=== PATIENT | female | born 1980 | race Caucasian/White ===

== ENCOUNTER 2020-06-04 08:41 | Outpatient (REF) | payer OTHER, SELFPAY ==
[2020-06-04 09:43] LABS: MANUAL DIFF FLAG NO
[2020-06-04 09:44] LABS: Basophils Absolute Auto 0.1 X10*3/uL (0.0-0.2); Basophils Percent Auto 0.4 % (0-2); Eosinophils Absolute Auto 0.2 X10*3/uL (0.0-0.4); Eosinophils Percent Auto 1.8 % (0-4); Hematocrit 34.3 % (37-47); Hemoglobin 10.3 g/dl (12.0-16.0); Imm Gran Abs Auto 0.06 X10*3/uL (0.00-0.03); Imm Gran Pct Auto 0.5 % (0.0-0.4); Lymphocytes Absolute Auto 2.2 X10*3/uL (1.2-4.9); Lymphocytes Percent Auto 17.4 % (20-40); Mean Corpuscular Hemoglobin 24.6 pg (27.0-33.0); Mean Corpuscular Volume 82.1 fL (80-98); Mean Platelet Volume 9.5 fL (9.4-12.3); Monocytes Absolute Auto 0.8 X10*3/uL (0.1-1.2); Monocytes Percent Auto 6.2 % (2-11); Neutrophils Absolute Auto 9.5 X10*3/uL (2.0-8.3); Neutrophils Percent Auto 73.7 % (45-73); Platelet Count 331 X10*3/uL (160-400); Red Blood Count 4.18 X10*6/uL (4.20-5.50); Red Cell Distribution Width 17.3 % (11.0-16.0); White Blood Count 12.8 X10*3/uL (4.8-10.8)
[2020-06-04 10:26] LABS: Alanine Aminotransferase 16 U/L (0-31); Albumin Level 3.8 g/dL (3.5-5.0); Alkaline Phosphatase 120 U/L (39-117); Anion Gap 10 (12-20); Aspartate Amino Transferase 18 U/L (5-31); Bilirubin Total < 0.2 mg/dL (0.0-1.0); Blood Urea Nitrogen 11 mg/dL (9-16); Carbon Dioxide 29 mmol/L (22-29); Chloride 102 mmol/L (96-108); Cholesterol 138 mg/dL; Estimated Glomerular Filt Rate > 60; Glucose Fasting 133 mg/dL (60-99); HDL Cholesterol 41 mg/dL; LDL Cholesterol Calculated 74 mg/dl; Potassium 4.2 mmol/l (3.3-5.1); Sodium 137 mmol/L (135-145); Total Protein 6.8 g/dL (6.5-8.0); Triglycerides 115 mg/dL
[2020-06-04 14:19] LABS: CT PCR NOT DETECTED (Not Detect.); NG PCR NOT DETECTED (Not Detect.)
[2020-06-06 08:39] LABS: HBS Num1 1.32 mIU/mL (0-7.99); HBc Num1 0.06 S/CO (0.00-0.79); HBsAGNum1 0.15 S/CO (0.00-0.99); HIV AB/AG Nonreactive (Nonreactive); HIV Num 1 0.14 S/CO (0.00-0.99); Hepatitis B Core Antibody Nonreactive (Nonreactive); Hepatitis B Surface Antigen Negative (Negative); ~Hepatitis B Surface Antibody NONREACTIVE (Nonreactive); ~Hepatitis C Antibody Nonreactive (Nonreactive)
[2020-06-06 08:54] LABS: Syphilis Screen Nonreactive (Nonreactive)
[2020-06-09 08:51] LABS: Hepatitis A Antibody IgM 0.11 Index (0-0.79); ~Hepatitis A Antibody IgM Nonreactive (Nonreactive)
== END 2020-06-04 08:42 | disposition home or self-care (01) ==
LOC: HO.LAB 08:41
PROVIDERS: PCP Internal Medicine; Visit Provider Internal Medicine
DX: Z72.51 High risk heterosexual behavior (principal); Z11.3 Encounter for screening for infections with a predominantly sexual mode of transmission; Z11.4 Encounter for screening for human immunodeficiency virus [HIV]; Z01.84 Encounter for antibody response examination
CPT/HCPCS: 36415; 80053; 80061; 85025; 86704; 86706; 86709; 86780; 86803; 87340; 87389; 87491; 87591

== ENCOUNTER 2020-06-15 14:51 | Outpatient (REF) | payer OTHER, SELFPAY ==
--- NOTE | 2020-06-15 14:56 | MM_ITS ---
EXAMINATION: MM SCREENING DIGITAL BREAST TOMOSYNTHESIS, BILATERAL CLINICAL INFORMATION: Screening. Asymptomatic. The lifetime risk of breast cancer based on the Tyrer-Cuzick Model is 10%. COMPARISON: Mammography: 08/25/2015 TECHNIQUE: Digital breast tomosynthesis is performed in both the craniocaudal and mediolateral oblique views along with computer-aided detection (CAD). Synthesized 2D images are generated from the tomosynthesis. FINDINGS: There are scattered areas of fibroglandular density (ACR BI-RADS breast composition Category b). There are no significant masses, abnormal calcifications, or other abnormalities. There are multiple punctate predominantly dermal calcifications bilateral posterior central and medial breasts. No significant change. MM/MM tomosynthesis screening BI IMPRESSION: No significant changes from prior study. ASSESSMENT: BI-RADS 2: Benign RECOMMENDATION: Routine annual mammography screening. This patient's information was entered into a reminder system with a target due date for their next mammogram.
== END 2020-06-15 14:52 | disposition home or self-care (01) ==
LOC: HO.MAMMO 14:51
PROVIDERS: PCP Internal Medicine; Visit Provider Internal Medicine
DX: Z12.31 Encounter for screening mammogram for malignant neoplasm of breast (principal)
CPT/HCPCS: 77063; 77067

== ENCOUNTER 2020-08-18 08:39 | Outpatient (REF) | payer OTHER, SELFPAY ==
[2020-08-18 10:37] LABS: Hematocrit 35.9 % (37-47); Mean Corpuscular HGB Conc 30.6 g/dl (31.0-35.0); Mean Corpuscular Hemoglobin 25.1 pg (27.0-33.0); Mean Platelet Volume 10.2 fL (9.4-12.3); Platelet Count 311 X10*3/uL (160-400); Red Blood Count 4.38 X10*6/uL (4.20-5.50); Red Cell Distribution Width 16.3 % (11.0-16.0); White Blood Count 11.9 X10*3/uL (4.8-10.8)
[2020-08-18 11:21] LABS: HCG Quantitative < 2 mIU/mL; TSH reflex Free T4 0.93 mIU/mL (0.32-4.0)
[2020-08-19 12:12] LABS: Follicle Stimulating Hormone 1.6 mIU/mL; Lutenizing Hormone 2.1 mIU/mL; Prolactin 15.2 ng/mL
[2020-08-19 17:47] LABS: DHEA Sulfate 38 mcg/dL (23-266)
[2020-08-19 18:32] LABS: C. trachomatis RNA TMA NOT DETECTED (NOT DETECTED); N. gonorrhoeae RNA TMA NOT DETECTED (NOT DETECTED)
[2020-08-22 21:52] LABS: HPV mRNA E6/E7 Not Detected (Not Detected)
[2020-08-23 13:57] LABS: Testosterone, Free 1.6 pg/mL (0.1-6.4); Testosterone, Total 23 ng/dL (2-45)
== END 2020-08-18 08:40 | disposition home or self-care (01) ==
LOC: HO.LAB 08:39
PROVIDERS: PCP Internal Medicine; Visit Provider Obstetrics & Gynecology
DX: Z01.419 Encounter for gynecological examination (general) (routine) without abnormal findings (principal); N92.1 Excessive and frequent menstruation with irregular cycle
CPT/HCPCS: 36415; 82627; 83001; 83002; 83498; 84146; 84402; 84403; 84443; 84702; 85027; 87491; 87591; 87624; 87625; 88141; 88142

== ENCOUNTER 2020-10-19 13:41 | Outpatient (REF) | payer OTHER, SELFPAY | END 2020-10-19 13:42 | disposition home or self-care (01) | LOC: HO.LAB 13:41 | PROVIDERS: PCP Internal Medicine; Visit Provider Obstetrics & Gynecology | DX: N92.1 Excessive and frequent menstruation with irregular cycle (principal); L68.0 Hirsutism; L70.9 Acne, unspecified | CPT/HCPCS: 58100; 88305 ==

== ENCOUNTER → 2020-11-02 11:55 | Outpatient (BNVA) | payer OTHER, SELFPAY | PROVIDERS: PCP Internal Medicine; Visit Provider Obstetrics & Gynecology ==

== ENCOUNTER 2020-11-30 10:58 | Outpatient (REF) | payer OTHER, SELFPAY ==
--- NOTE | ~2020-11-30 | US_ITS ---
EXAMINATION: ULTRASOUND PELVIS, TRANSVAGINAL CLINICAL INFORMATION: Excessive and frequent menstruation with irregular cycles. COMPARISON: None TECHNIQUE: Transabdominal and transvaginal imaging of pelvis is performed. FINDINGS: The uterus is anteverted and anteflexed measuring 8.4 cm in length, 6.3 cm in AP and 6.9 cm in transverse dimension. There are 2 hypoechoic lesions.. 1. Lesion in the right upper body of uterus measuring 2.4 x 1.9 x 2.3 cm. 2. Lesion in the anterior left body of uterus measuring 1.6 x 1.7 x 1.7 cm. Endometrial thickness is normal measuring 0.6 cm. The right ovary is not seen due to overlying bowel gas pattern. The left ovary measures 3.0 x 1.9 x 2.4 cm volume 6.9 mL. There are multiple ovarian follicles seen. There is small amount of free fluid in the cul-de-sac. US/US transvaginal IMPRESSION: 2 small uterine fibroids as described above. The right ovary is not seen. There are multiple follicles in the left ovary.
--- NOTE | ~2020-11-30 | US_ITS ---
EXAMINATION: ULTRASOUND PELVIS, TRANSVAGINAL CLINICAL INFORMATION: Excessive and frequent menstruation with irregular cycles. COMPARISON: None TECHNIQUE: Transabdominal and transvaginal imaging of pelvis is performed. FINDINGS: The uterus is anteverted and anteflexed measuring 8.4 cm in length, 6.3 cm in AP and 6.9 cm in transverse dimension. There are 2 hypoechoic lesions.. 1. Lesion in the right upper body of uterus measuring 2.4 x 1.9 x 2.3 cm. 2. Lesion in the anterior left body of uterus measuring 1.6 x 1.7 x 1.7 cm. Endometrial thickness is normal measuring 0.6 cm. The right ovary is not seen due to overlying bowel gas pattern. The left ovary measures 3.0 x 1.9 x 2.4 cm volume 6.9 mL. There are multiple ovarian follicles seen. There is small amount of free fluid in the cul-de-sac. US/US pelvic complete IMPRESSION: 2 small uterine fibroids as described above. The right ovary is not seen. There are multiple follicles in the left ovary.
== END 2020-11-30 10:59 | disposition home or self-care (01) ==
LOC: HO.US 10:58
PROVIDERS: PCP Internal Medicine; Visit Provider Obstetrics & Gynecology
DX: N92.1 Excessive and frequent menstruation with irregular cycle (principal)
CPT/HCPCS: 76830; 76856

== ENCOUNTER → 2020-12-13 12:03 | Outpatient (BNVA) | payer OTHER, SELFPAY | PROVIDERS: PCP Internal Medicine; Visit Provider Obstetrics & Gynecology ==

== ENCOUNTER 2020-12-14 12:56 | Outpatient (REF) | payer OTHER, SELFPAY ==
[2020-12-14 13:59] LABS: MANUAL DIFF FLAG NO
[2020-12-14 14:04] LABS: Basophils Percent Auto 0.3 % (0-2); Eosinophils Absolute Auto 0.2 X10*3/uL (0.0-0.4); Eosinophils Percent Auto 1.6 % (0-4); Hematocrit 36.6 % (37-47); Hemoglobin 10.8 g/dl (12.0-16.0); Imm Gran Abs Auto 0.06 X10*3/uL (0.00-0.03); Imm Gran Pct Auto 0.4 % (0.0-0.4); Lymphocytes Percent Auto 13.8 % (20-40); Mean Corpuscular HGB Conc 29.5 g/dl (31.0-35.0); Mean Corpuscular Hemoglobin 24.5 pg (27.0-33.0); Mean Platelet Volume 10.1 fL (9.4-12.3); Monocytes Absolute Auto 0.8 X10*3/uL (0.1-1.2); Monocytes Percent Auto 5.7 % (2-11); Neutrophils Absolute Auto 11.1 X10*3/uL (2.0-8.3); Neutrophils Percent Auto 78.2 % (45-73); Platelet Count 320 X10*3/uL (160-400); Red Blood Count 4.41 X10*6/uL (4.20-5.50); Red Cell Distribution Width 18.1 % (11.0-16.0); White Blood Count 14.2 X10*3/uL (4.8-10.8)
[2020-12-14 14:42] LABS: Alanine Aminotransferase 13 U/L (0-31); Albumin Level 3.8 g/dL (3.5-5.0); Alkaline Phosphatase 111 U/L (39-117); Amylase 83 U/L (28-100); Anion Gap 11 (12-20); Aspartate Amino Transferase 13 U/L (5-31); Bilirubin Total < 0.2 mg/dL (0.0-1.0); Blood Urea Nitrogen 12 mg/dL (9-16); Calcium 9.1 mg/dL (8.4-10.2); Carbon Dioxide 30 mmol/L (22-29); Chloride 101 mmol/L (96-108); Estimated Glomerular Filt Rate > 60; Glucose Random 133 mg/dL (60-115); Lipase 32 U/L (8-78); Potassium 4.1 mmol/L (3.3-5.1); Sodium 138 mmol/L (135-145); Total Protein 6.8 g/dL (6.5-8.0)
== END 2020-12-14 12:57 | disposition home or self-care (01) ==
LOC: HO.HMGCLDS 12:56
PROVIDERS: PCP Internal Medicine; Visit Provider Nurse Practitioner Family
DX: R10.9 Unspecified abdominal pain (principal)
CPT/HCPCS: 36415; 80053; 82150; 83690; 85025

== ENCOUNTER 2021-03-13 15:19 | Emergency (ER) | payer OTHER, SELFPAY ==
--- NOTE | ~2021-03-13 | CT_ITS ---
EXAMINATION: CT ABDOMEN AND PELVIS WITHOUT CONTRAST CLINICAL INFORMATION: LLQ pain, L flank pain . COMPARISON: No pertinent prior studies are available for comparison. TECHNIQUE: Multidetector volumetric imaging was performed from the superior aspect of the liver through the pubic symphysis without contrast per renal stone protocol. Sagittal and coronal reformatted images were obtained on the technologist workstation. This CT examination was performed using dose optimization techniques as appropriate, variously including the following: *Automated exposure control *Adjustment of mA and/or kV according to patient size (this includes techniques or standardized protocols for targeted exams where dose is matched to indication/reason for exam; i.e. extremities or head) *Use of iterative reconstruction technique DLP: 1109 mGy-cm. FINDINGS: LUNG BASES: The visualized lung bases are unremarkable. LIVER, GALLBLADDER, BILIARY TREE: There is mild diffuse fatty infiltration liver. There is a subtle 1.3 cm lesion in the posterior aspect of segment 7 of the liver able to be delineated in part due to the background fatty infiltration making this more.. Otherwise this is nonspecific on this noncontrast study. No biliary ductal dilatation The gallbladder is unremarkable with no evidence of radiopaque gallstones, gallbladder wall thickening, or obvious pericholecystic inflammatory changes. PANCREAS: Unremarkable. SPLEEN: Unremarkable. ADRENAL GLANDS: Unremarkable. KIDNEYS AND URETERS: The kidneys are normal in size, shape, and attenuation. No hydronephrosis, hydroureter, or calculi seen. No perinephric stranding. BLADDER: Unremarkable. GASTROINTESTINAL TRACT: A few scattered colonic diverticula are noted but there is no colonic wall thickening or pericolonic inflammatory change to suggest diverticulitis. No obstructive changes to the bowel. ABDOMINAL WALL: Tiny fat-containing umbilical hernia again noted LYMPHOVASCULAR STRUCTURES: Shotty retroperitoneal periaortic and pericaval lymph nodes are seen but no bulky lymphadenopathy. The aorta is unremarkable.. PELVIC VISCERA: Lobulated contour to the uterus suggesting statistically uterine fibroids. Physiologic changes to the adnexa. OSSEUS STRUCTURES: Degenerative changes at L5/S1 but no acute bony abnormality. CT/CT abdomen pelvis wo con IMPRESSION: Diffuse fatty infiltration of the liver. This background fatty infiltration helped to identify a subtle 1.3 cm lesion in posterior segment 7 of the liver. This is too small to characterize otherwise. Nonemergent dynamic liver MRI could help to define this further if needed. There is scattered diverticulosis but no evidence for diverticulitis. No acute intra-abdominal process seen.
[2021-03-13 16:44] VITALS: BP 187/87; PULSE 82; RESP 18; TEMP 36.9; O2SAT 98; BMI 49.6
--- NOTE | 2021-03-13 19:00 | ED_ITS ---
HPI - Abdominal Pain General Chief Complaint: Abdominal Pain Stated Complaint: headache nausea Time Seen by Provider: 03/13/21 17:29 Source: patient Mode of arrival: ambulatory Limitations: no limitations History of Present Illness MD elicited complaint: abdominal pain Onset (ago): day(s) (5) Pain Consistency: constant Location: LLQ and L flank Severity: moderate Quality: cramping Radiation: none Migration to: no migration Exacerbating factors: nothing Relieving factors: nothing Associated symptoms: nausea, vomiting and diarrhea Related Data Home Medications Medication Instructions Recorded Confirmed topiramate 25 mg tablet 25 mg PO DAILY 05/09/20 02/07/21 duloxetine 60 mg capsule,delayed 60 mg PO DAILY 08/26/20 02/07/21 release zaleplon 10 mg capsule 10 mg PO BEDTIME PRN 08/26/20 02/07/21 Previous Rx's Medication Instructions Recorded triamcinolone acetonide 0.1 % 1 applic TOPICAL BID 7 Days #30 g 05/09/20 topical cream ascorbic acid (vitamin C) 500 mg 1,000 mg PO DAILY #60 tab 09/17/20 tablet medroxyprogesterone 10 mg tablet 10 mg PO DAILY 10 Days #30 tab 12/13/20 (Provera) famotidine 20 mg tablet 20 mg PO DAILY #30 tab 12/14/20 albuterol sulfate 90 mcg/actuation 2 puff PO Q6H PRN 30 Days #6.7 g 02/07/21 aerosol inhaler amoxicillin 875 mg-potassium 1 tab PO Q12H 5 Days #10 tab 02/07/21 clavulanate 125 mg tablet fluticasone 232 mcg-salmeterol 14 2 inh PO BID 30 Days #1 ea 02/07/21 mcg/actuation breath activated powdr sumatriptan succinate 50 mg tablet 50 mg PO BID PRN #9 tab 03/05/21 amoxicillin 875 mg-potassium 1 tab PO BID #14 tab 03/13/21 clavulanate 125 mg tablet (Augmentin) ibuprofen 600 mg tablet 600 mg PO Q6H PRN #30 tab 03/13/21 ondansetron 4 mg disintegrating 4 mg PO Q8H PRN #20 tab 03/13/21 tablet Allergies Allergy/AdvReac Type Severity Reaction Status Date / Time horse dander [HORSE DANDER] Allergy Intermediate Rash Verified 02/07/21 10:43 mold [MOLD] Allergy Intermediate rash Verified 02/07/21 10:43 pollen extracts [POLLEN] Allergy Intermediate Rash Verified 02/07/21 10:43 trazodone AdvReac Intermediate dry mouth, Verified 02/07/21 10:43 sleepwalking GRASS Allergy Intermediate Rash Uncoded 02/07/21 10:43 Review of Systems Review of Systems Constitutional : No Weight loss, No Fever, No Chills ENT/Mouth : No sore throat, No Rhinorrhea Eyes: No Swelling, No Redness Cardiovascular : No Chest Pain, No SOB, NoEdema Respiratory : No Cough, No Sputum, No Wheezing Gastrointestinal : Positive Nausea, Positive Vomiting, positive Diarrhea, positive abdominal Pain, No Hematochezia, No Melena Genitourinary : No Dysuria, No Urinary Frequency, No Hematuria, No Urgency Musculoskeletal : No joint pain, No Myalgias, No Joint Swelling Skin : No Skin Lesions, No rash Neuro : No Weakness, No Numbness, No Dizziness, pos Headache Psych : No Anxiety/Panic, No Depression Heme/Lymph: No Bruising, No Lymphadenopathy Endocrine : No Polyuria, No Polydipsia All other systems reviewed and are negative. Physical Exam Vital Signs: Vital Signs: Last Vital Signs Temp 98.5 F 03/13/21 16:44 Pulse 82 03/13/21 16:44 Resp 18 03/13/21 16:44 BP 187/87 H 03/13/21 16:44 Pulse Ox 98 03/13/21 16:44 Body Mass Index 49.6 Appearance: Alert. Oriented X3. No acute distress. Eyes: Pupils equal, round and reactive to light. ENT: Pharynx normal. Neck: Normal inspection. Neck supple. CVS: Normal heart rate and rhythm. Pulses normal. Respiratory: No respiratory distress. Breath sounds normal. Abdomen: Soft and mild LLQ no rebound or guarding Skin: Skin warm and dry. Normal skin color. Normal skin turgor. Extremities: No lower extremity edema. No calf ttp Neuro: Oriented X 3. No motor deficit. No sensory deficit. Course Course Course Narrative: clinically the patient appears to have diverticulitis non contrast CT scan reports that there is no diverticulitis but clinically will treat with augmentin MDM - Abdominal Pain MDM Narrative Medical decision making narrative: 40 yo female with hx of GERD, anemia, RASTA s/p tubal ligation and appendectomy comes in with 5 days of nausea, LLQ pain/L fl ank pain - at this time labs, IVF, IV toradol, CT scan for renal colic/diverticulitis dispo per results and findings. Differential Diagnosis Differential diagnosis: Likely abdominal pain, diverticulitis and renal colic Lab Data Result diagrams: 03/13/21 19:11 03/13/21 19:10 Labs: Lab Results 03/13/21 03/13/21 03/13/21 Range/Units 19:10 19:11 19:11 WBC 12.7 H (4.8-10.8) X10*3/uL RBC 3.91 L (4.20-5.50) X10*6/uL Hgb 9.9 L (12.0-16.0) g/dl Hct 31.9 L (37-47) % MCV 81.6 (80-98) fL MCH 25.3 L (27.0-33.0) pg MCHC 31.0 (31.0-35.0) g/dl RDW 16.9 H (11.0-16.0) % Plt Count 321 (160-400) X10*3/uL MPV 9.8 (9.4-12.3) fL Immature Gran % (Auto) 0.4 (0.0-0.4) % Neut % (Auto) 74.9 H (45-73) % Lymph % (Auto) 16.2 L (20-40) % [place] % (Auto) 6.8 (2-11) % Eos % (Auto) 1.4 (0-4) % Baso % (Auto) 0.3 (0-2) % Lymph # (Auto) 2.1 (1.2-4.9) X10*3/uL [place] # (Auto) 0.9 (0.1-1.2) X10*3/uL Eos # (Auto) 0.2 (0.0-0.4) X10*3/uL Baso # (Auto) 0.0 (0.0-0.2) X10*3/uL Abs Immat Gran (auto) 0.05 H (0.00-0.03) X10*3/uL Absolute Neuts (auto) 9.5 H (2.0-8.3) X10*3/uL Absolute Nucleated RBC 0.000 (0.0-0.012) X10*3/uL Nucleated RBC % (auto) 0.0 (0.0-0.2) /100WBC Sodium 139 (135-145) mmol/L Potassium 4.3 (3.3-5.1) mmol/L Chloride 103 (96-108) mmol/L Carbon Dioxide 28 (22-29) mmol/L Anion Gap 12 (12-20) BUN 11 (9-16) mg/dL Creatinine 0.78 (0.5-1.4) mg/dL Estim Creat Clear Calc 123.2 Estimated GFR > 60 Random Glucose 165 H (60-115) mg/dL Calcium 8.9 (8.4-10.2) mg/dL Magnesium 2.0 (1.6-2.6) mg/dL Total Bilirubin 0.4 (0.0-1.0) mg/dL Direct Bilirubin < 0.2 (0.0-0.5) mg/dL AST 12 (5-31) U/L ALT 11 (0-31) U/L Alkaline Phosphatase 112 (39-117) U/L Total Protein 6.8 (6.5-8.0) g/dL Albumin 3.8 (3.5-5.0) g/dL Lipase 42 (8-78) U/L Discharge Plan Discharge Clinical Impression: Diverticulitis Patient Disposition: Home, Self-Care Instructions: Diverticulitis (ED) Additional Instructions: return to ED for any worsening symptoms or concerns Prescriptions: New ibuprofen 600 mg tablet 600 mg PO Q6H PRN (Reason: pain) Qty: 30 RF: 0 ondansetron 4 mg tablet,disintegrating 4 mg PO Q8H PRN (Reason: nausea and vomiting) Qty: 20 RF: 0 amoxicillin-pot clavulanate [Augmentin] 875-125 mg tablet 1 tab PO BID Qty: 14 RF: 0 No Action ascorbic acid (vitamin C) 500 mg tablet 1,000 mg PO DAILY Qty: 60 RF: 0 sumatriptan succinate 50 mg tablet 50 mg PO BID PRN (Reason: for migraine) Qty: 9 RF: 2 zaleplon 10 mg capsule 10 mg PO BEDTIME PRNRF: 0 duloxetine 60 mg capsule,delayed release(DR/EC) 60 mg PO DAILY RF: 0 albuterol sulfate 90 mcg/actuation HFA aerosol inhaler 2 puff PO Q6H PRN (Reason: bronchospasm) 30 Days Qty: 6.7 RF: 6 fluticasone propion-salmeterol 232-14 mcg/actuation aerosol powdr breath activated 2 inh PO BID 30 Days Qty: 1 RF: 6 amoxicillin-pot clavulanate 875-125 mg tablet 1 tab PO Q12H 5 Days Qty: 10 RF: 0 topiramate 25 mg tablet 25 mg PO DAILY RF: 0 triamcinolone acetonide 0.1 % cream 1 applic topical BID 7 Days Qty: 30 RF: 6 famotidine 20 mg tablet 20 mg PO DAILY Qty: 30 RF: 0 medroxyprogesterone [Provera] 10 mg tablet 10 mg PO DAILY 10 Days Qty: 30 RF: 3 Referrals: Maribell West MD [Primary Care Provider] - 5 days (Diffuse fatty infiltration of the liver. This background fatty infiltration helped to identify a subtle 1.3 cm lesion in posterior segment 7 of the liver. This is too small to characterize otherwise. Nonemergent dynamic liver MRI could help to define this further if needed.) Stand Alone Forms: Work/School Release [facility] Past Medical History Attestation statement: The following information was validated with the patient. Medical History Active asthma Arthralgia Depression Eczema Edema Fibromyalgia GERD (gastroesophageal reflux disease) Impaired glucose tolerance Insomnia Iron deficiency anemia Migraines Morbid obesity with BMI of 50.0-59.9, adult RASTA (obstructive sleep apnea) Paresthesia Super obese Surgical History History of appendectomy History of tonsillectomy History of tubal ligation Family History Family History Father Diabetes Mother Diabetes Hypertension Maternal Grandmother Breast cancer Maternal Grandfather Prostate cancer Social History Social History Housing: Apartment Alcohol intake: never Patient Tobacco Use Status: Never used Tobacco Smoked in Last 30 Days: No e-Cigarette/Vaping Use: Never Used Second Hand Smoke Exposure: No Advance Directives: No Advance Directives Information Provided: No Patient : No service: No Current occupational status: employed Current occupational exposures/hazards: No
[2021-03-13] MEDS: Ketorolac Tromethamine 15 MG/ML VIAL IVPUSH (19:17)
[2021-03-13] MEDS: 0.9 % Sodium Chloride 1,000 ML 999 ML IVCONT (19:17)
[2021-03-13] MEDS: ondansetron HCL 4 MG/2 ML VIAL IVPUSH (19:18)
[2021-03-13 19:22] LABS: MANUAL DIFF FLAG NO
[2021-03-13 19:25] LABS: Basophils Percent Auto 0.3 % (0-2); Eosinophils Absolute Auto 0.2 X10*3/uL (0.0-0.4); Eosinophils Percent Auto 1.4 % (0-4); Hematocrit 31.9 % (37-47); Hemoglobin 9.9 g/dl (12.0-16.0); Imm Gran Abs Auto 0.05 X10*3/uL (0.00-0.03); Imm Gran Pct Auto 0.4 % (0.0-0.4); Lymphocytes Absolute Auto 2.1 X10*3/uL (1.2-4.9); Lymphocytes Percent Auto 16.2 % (20-40); Mean Corpuscular Hemoglobin 25.3 pg (27.0-33.0); Mean Corpuscular Volume 81.6 fL (80-98); Mean Platelet Volume 9.8 fL (9.4-12.3); Monocytes Absolute Auto 0.9 X10*3/uL (0.1-1.2); Monocytes Percent Auto 6.8 % (2-11); Neutrophils Absolute Auto 9.5 X10*3/uL (2.0-8.3); Neutrophils Percent Auto 74.9 % (45-73); Platelet Count 321 X10*3/uL (160-400); Red Blood Count 3.91 X10*6/uL (4.20-5.50); Red Cell Distribution Width 16.9 % (11.0-16.0); White Blood Count 12.7 X10*3/uL (4.8-10.8)
[2021-03-13 19:50] LABS: Anion Gap 12 (12-20); Blood Urea Nitrogen 11 mg/dL (9-16); Calcium 8.9 mg/dL (8.4-10.2); Carbon Dioxide 28 mmol/L (22-29); Chloride 103 mmol/L (96-108); Creatinine Clr Calc Pharmacy 123.2; Estimated Glomerular Filt Rate > 60; Glucose Random 165 mg/dL (60-115); Potassium 4.3 mmol/L (3.3-5.1); Sodium 139 mmol/L (135-145)
[2021-03-13 19:53] LABS: Alanine Aminotransferase 11 U/L (0-31); Albumin Level 3.8 g/dL (3.5-5.0); Alkaline Phosphatase 112 U/L (39-117); Aspartate Amino Transferase 12 U/L (5-31); Bilirubin Direct < 0.2 mg/dL (0.0-0.5); Bilirubin Total 0.4 mg/dL (0.0-1.0); Lipase 42 U/L (8-78); Total Protein 6.8 g/dL (6.5-8.0)
== END 2021-03-13 22:18 | disposition home or self-care (01) ==
PROVIDERS: Emergency Provider Emergency Medicine; PCP Internal Medicine
DX: K57.92 Diverticulitis of intestine, part unspecified, without perforation or abscess without bleeding (principal); E66.01 Morbid (severe) obesity due to excess calories; Z68.43 Body mass index [BMI] 50.0-59.9, adult
CPT/HCPCS: 36415; 74176; 80048; 80076; 83690; 83735; 85025; 96361; 96374; 96375; 99284; 99285; J1885; J2405

== ENCOUNTER 2021-04-25 08:48 | Emergency (ER) | payer OTHER, SELFPAY ==
--- NOTE | 2021-04-25 09:13 | ED_ITS ---
HPI - Nausea/Vomiting/Diarrhea General Chief complaint: Nausea/Vomiting/Diarrhea Stated complaint: nausea, diarrhea, abd pain Time Seen by Provider: 04/25/21 09:13 Source: patient Mode of arrival: ambulatory Limitations: no limitations History of Present Illness MD elicited complaint: nausea, vomiting, diarrhea and abdominal pain Onset (ago): day(s) (2) Description of vomiting: food contents Associated nausea: Yes Associated abdominal pain: Yes Location of pain: diffuse Pain consistency: intermittent Severity: mild Quality: cramping Relieving factors: none Associated symptoms: nausea/vomiting Related Data Home Medications Medication Instructions Recorded Confirmed topiramate 25 mg tablet 25 mg PO DAILY 05/09/20 03/30/21 duloxetine 60 mg capsule,delayed 60 mg PO DAILY 08/26/20 03/30/21 release zaleplon 10 mg capsule 10 mg PO BEDTIME PRN 04/12/21 Previous Rx's Medication Instructions Recorded triamcinolone acetonide 0.1 % 1 applic TOPICAL BID 7 Days #30 g 05/09/20 topical cream ascorbic acid (vitamin C) 500 mg 1,000 mg PO DAILY #60 tab 09/17/20 tablet medroxyprogesterone 10 mg tablet 10 mg PO DAILY 10 Days #30 tab 12/13/20 (Provera) famotidine 20 mg tablet 20 mg PO DAILY #30 tab 12/14/20 albuterol sulfate 90 mcg/actuation 2 puff PO Q6H PRN 30 Days #6.7 g 02/07/21 aerosol inhaler fluticasone 232 mcg-salmeterol 14 2 inh PO BID 30 Days #1 ea 02/07/21 mcg/actuation breath activated powdr sumatriptan succinate 50 mg tablet 50 mg PO BID PRN #9 tab 03/05/21 ibuprofen 600 mg tablet 600 mg PO Q6H PRN #30 tab 03/13/21 ondansetron 4 mg disintegrating 4 mg PO Q8H PRN #20 tab 03/13/21 tablet erythromycin 5 mg/gram (0.5 %) eye 0.5 inch OPHTHALMIC (EYE) TID #1 g 04/12/21 ointment fluticasone propionate 50 1 spray INTRANASAL DAILY #9.9 ml 04/12/21 mcg/actuation nasal spray,suspension (Flonase Allergy Relief) ferrous sulfate 325 mg (65 mg 325 mg PO DAILY #30 tab 04/25/21 iron) tablet ondansetron 4 mg disintegrating 4 mg PO Q8H PRN #20 tab 04/25/21 tablet Allergies Allergy/AdvReac Type Severity Reaction Status Date / Time horse dander [HORSE DANDER] Allergy Intermediate Rash Verified 04/12/21 12:27 mold [MOLD] Allergy Intermediate rash Verified 04/12/21 12:27 pollen extracts [POLLEN] Allergy Intermediate Rash Verified 04/12/21 12:27 trazodone AdvReac Intermediate dry mouth, Verified 04/12/21 12:27 sleepwalking GRASS Allergy Intermediate Rash Uncoded 03/30/21 13:15 Review of Systems Review of Systems: Constitutional : No Weight loss, No Fever, No Chills ENT/Mouth : No sore throat, No Rhinorrhea Eyes: No Swelling, No Redness Cardiovascular : No Chest Pain, No SOB, NoEdema Respiratory : No Cough, No Sputum, No Wheezing Gastrointestinal : Positive Nausea, Positive Vomiting, positive Diarrhea, positive abdominal Pain, No Hematochezia, No Melena Genitourinary : No Dysuria, No Urinary Frequency, No Hematuria, No Urgency Musculoskeletal : No joint pain, No Myalgias, No Joint Swelling Skin : No Skin Lesions, No rash Neuro : No Weakness, No Numbness, No Dizziness, No Headache Psych : No Anxiety/Panic, No Depression Heme/Lymph: No Bruising, No Lymphadenopathy Endocrine : No Polyuria, No Polydipsia All other systems reviewed and are negative. Gastrointestinal: Gastrointestinal: Reports nausea PMFSH Past Medical History Attestation statement: The following information was validated with the patient. Medical History Active asthma Arthralgia Depression Diverticulitis Eczema Edema Fibromyalgia GERD (gastroesophageal reflux disease) Impaired glucose tolerance Insomnia Iron deficiency anemia Migraines Morbid obesity with BMI of 50.0-59.9, adult RASTA (obstructive sleep apnea) Paresthesia Super obese Surgical History History of appendectomy History of tonsillectomy History of tubal ligation Family History Family History Father Diabetes Mother Diabetes Hypertension Maternal Grandmother Breast cancer Maternal Grandfather Prostate cancer Social History Social History Housing: Apartment Alcohol intake: never Patient Tobacco Use Status: Never used Tobacco e-Cigarette/Vaping Use: Never Used Second Hand Smoke Exposure: No Use of substances other than those prescribed or required for medical reasons: No Advance Directives: No Advance Directives Information Provided: No Patient : No service: No Current occupational status: employed Current occupational exposures/hazards: No Physical Exam Vital Signs: Vital Signs: Last Vital Signs Temp 97.9 F 04/25/21 10:33 Pulse 79 04/25/21 12:00 Resp 18 04/25/21 12:00 BP 140/82 H 04/25/21 12:00 Pulse Ox 99 04/25/21 12:00 Body Mass Index 52.6 Appearance: Alert. Oriented X3. No acute distress. Eyes: Pupils equal, round and reactive to light. ENT: Pharynx normal. Neck: Normal inspection. Neck supple. CVS: Normal heart rate and rhythm. Pulses normal. Respiratory: No respiratory distress. Breath sounds normal. Abdomen: Soft and mild diffuse ttp no rebound or guarding Skin: Skin warm and dry. Normal skin color. Normal skin turgor. Extremities: No lower extremity edema. No calf ttp Neuro: Oriented X 3. No motor deficit. No sensory deficit. Course Course Course Narrative: Patient reports improvement of symptoms, she states she has not vomited, her nausea has also improved. She feels a lot better at this time. labs and UA negative stable for DC at this time MDM - Nausea/Vomiting/Diarrhea MDM Narrative Medical decision making narrative: 40 yo female with RASTA, obesity, anemia and migraines comes in with c/o n/v/d and abdominal cramps since yesterday - no sick contact, no food exposures, no recent antibiotic use at this time will need labs, IVF , zofran, UA - no localized ttp if no sig lab derangement will DC home with PO challenge Lab Data Result diagrams: 04/25/21 10:26 04/25/21 10:26 Labs: Lab Results 04/25/21 04/25/21 04/25/21 Range/Units 10:26 10:26 10:26 WBC 11.2 H (4.8-10.8) X10*3/uL RBC 3.76 L (4.20-5.50) X10*6/uL Hgb 8.7 L (12.0-16.0) g/dl Hct 30.2 L (37-47) % MCV 80.3 (80-98) fL MCH 23.1 L (27.0-33.0) pg MCHC 28.8 L (31.0-35.0) g/dl RDW 17.1 H (11.0-16.0) % Plt Count 348 (160-400) X10*3/uL MPV 9.8 (9.4-12.3) fL Immature Gran % (Auto) 0.5 H (0.0-0.4) % Neut % (Auto) 75.5 H (45-73) % Lymph % (Auto) 13.7 L (20-40) % Davie % (Auto) 7.3 (2-11) % Eos % (Auto) 2.8 (0-4) % Baso % (Auto) 0.2 (0-2) % Lymph # (Auto) 1.5 (1.2-4.9) X10*3/uL Davie # (Auto) 0.8 (0.1-1.2) X10*3/uL Eos # (Auto) 0.3 (0.0-0.4) X10*3/uL Baso # (Auto) 0.0 (0.0-0.2) X10*3/uL Abs Immat Gran (auto) 0.06 H (0.00-0.03) X10*3/uL Absolute Neuts (auto) 8.5 H (2.0-8.3) X10*3/uL Absolute Nucleated RBC 0.000 (0.0-0.012) X10*3/uL Nucleated RBC % (auto) 0.0 (0.0-0.2) /100WBC Sodium 138 (135-145) mmol/L Potassium 4.3 (3.3-5.1) mmol/L Chloride 102 (96-108) mmol/L Carbon Dioxide 28 (22-29) mmol/L Anion Gap 12 (12-20) BUN 8 L (9-16) mg/dL Creatinine 0.71 (0.5-1.4) mg/dL Estim Creat Clear Calc 140.4 Estimated GFR > 60 Random Glucose 169 H (60-115) mg/dL Calcium 8.4 (8.4-10.2) mg/dL Magnesium 1.8 (1.6-2.6) mg/dL Total Bilirubin 0.4 (0.0-1.0) mg/dL Direct Bilirubin < 0.2 (0.0-0.5) mg/dL AST 12 (5-31) U/L ALT 10 (0-31) U/L Alkaline Phosphatase 120 H (39-117) U/L Total Protein 6.7 (6.5-8.0) g/dL Albumin 3.8 (3.5-5.0) g/dL Lipase 29 (8-78) U/L Urine Color Urine Appearance Urine pH (5.0-8.0) Ur Specific [place] (1.005-1.025) Urine Protein (NEG-TRACE) MG/DL Urine Glucose (UA) (NEG) MG/DL Urine Ketones (NEG) MG/DL Urine Blood (NEG) Urine Nitrite (NEG) Ur Leukocyte Esterase (NEG) Urine Test (NEGATIVE) COVID-19 (ERIK) Negative (Negative) COVID-19 Clin Com See Note 04/25/21 04/25/21 Range/Units 12:51 12:51 WBC (4.8-10.8) X10*3/uL RBC (4.20-5.50) X10*6/uL Hgb (12.0-16.0) g/dl Hct (37-47) % MCV (80-98) fL MCH (27.0-33.0) pg MCHC (31.0-35.0) g/dl RDW (11.0-16.0) % Plt Count (160-400) X10*3/uL MPV (9.4-12.3) fL Immature Gran % (Auto) (0.0-0.4) % Neut % (Auto) (45-73) % Lymph % (Auto) (20-40) % Davie % (Auto) (2-11) % Eos % (Auto) (0-4) % Baso % (Auto) (0-2) % Lymph # (Auto) (1.2-4.9) X10*3/uL [place]ie # (Auto) (0.1-1.2) X10*3/uL Eos # (Auto) (0.0-0.4) X10*3/uL Baso # (Auto) (0.0-0.2) X10*3/uL Abs Immat Gran (auto) (0.00-0.03) X10*3/uL Absolute Neuts (auto) (2.0-8.3) X10*3/uL Absolute Nucleated RBC (0.0-0.012) X10*3/uL Nucleated RBC % (auto) (0.0-0.2) /100WBC Sodium (135-145) mmol/L Potassium (3.3-5.1) mmol/L Chloride (96-108) mmol/L Carbon Dioxide (22-29) mmol/L Anion Gap (12-20) BUN (9-16) mg/dL Creatinine (0.5-1.4) mg/dL Estim Creat Clear Calc Estimated GFR Random Glucose (60-115) mg/dL Calcium (8.4-10.2) mg/dL Magnesium (1.6-2.6) mg/dL Total Bilirubin (0.0-1.0) mg/dL Direct Bilirubin (0.0-0.5) mg/dL AST (5-31) U/L ALT (0-31) U/L Alkaline Phosphatase (39-117) U/L Total Protein (6.5-8.0) g/dL Albumin (3.5-5.0) g/dL Lipase (8-78) U/L Urine Color YELLOW Urine Appearance CLEAR Urine pH 6.0 (5.0-8.0) Ur Specific [place] 1.010 (1.005-1.025) Urine Protein NEG (NEG-TRACE) MG/DL Urine Glucose (UA) NEG (NEG) MG/DL Urine Ketones NEG (NEG) MG/DL Urine Blood NEG (NEG) Urine Nitrite NEG (NEG) Ur Leukocyte Esterase NEG (NEG) Urine Test NEGATIVE (NEGATIVE) COVID-19 (ERIK) (Negative) COVID-19 Clin Com Discharge Plan Discharge Clinical Impression: Abdominal pain, Vomiting, Diarrhea, Anemia Patient Disposition: Home, Self-Care Instructions: Acute Nausea and Vomiting (ED), Acute Diarrhea (ED), Abdominal Pain (ED), Anemia (ED) Additional Instructions: return to ED for any worsening symptoms or concerns your doctor needs to follow your labs for anemia - repeat testing in 5 days Prescriptions: New ondansetron 4 mg tablet,disintegrating 4 mg PO Q8H PRN (Reason: nausea and vomiting) Qty: 20 RF: 0 ferrous sulfate 325 mg (65 mg iron) tablet 325 mg PO DAILY Qty: 30 RF: 0 No Action ascorbic acid (vitamin C) 500 mg tablet 1,000 mg PO DAILY Qty: 60 RF: 0 sumatriptan succinate 50 mg tablet 50 mg PO BID PRN (Reason: for migraine) Qty: 9 RF: 2 ibuprofen 600 mg tablet 600 mg PO Q6H PRN (Reason: pain) Qty: 30 RF: 0 ondansetron 4 mg tablet,disintegrating 4 mg PO Q8H PRN (Reason: nausea and vomiting) Qty: 20 RF: 0 duloxetine 60 mg capsule,delayed release(DR/EC) 60 mg PO DAILY RF: 0 albuterol sulfate 90 mcg/actuation HFA aerosol inhaler 2 puff PO Q6H PRN (Reason: bronchospasm) 30 Days Qty: 6.7 RF: 6 fluticasone propion-salmeterol 232-14 mcg/actuation aerosol powdr breath activated 2 inh PO BID 30 Days Qty: 1 RF: 6 topiramate 25 mg tablet 25 mg PO DAILY RF: 0 triamcinolone acetonide 0.1 % cream 1 applic topical BID 7 Days Qty: 30 RF: 6 famotidine 20 mg tablet 20 mg PO DAILY Qty: 30 RF: 0 erythromycin 5 mg/gram (0.5 %) ointment 0.5 inch ophthalmic (eye) TID Qty: 1 RF: 0 fluticasone propionate [Flonase Allergy Relief] 50 mcg/actuation spray,suspension 1 spray intranasal DAILY Qty: 9.9 RF: 1 medroxyprogesterone [Provera] 10 mg tablet 10 mg PO DAILY 10 Days Qty: 30 RF: 3 Referrals: Maribell West MD [Primary Care Provider] - 2 days (if not better) Stand Alone Forms: Work/School Release Print Language: New Zealander
[2021-04-25 09:15] VITALS: BP 159/75; PULSE 97; RESP 20; TEMP 36.7; O2SAT 98; BMI 52.6
[2021-04-25 10:31] LABS: MANUAL DIFF FLAG NO
[2021-04-25] MEDS: 0.9 % Sodium Chloride 1,000 ML 999 ML IVCONT (10:31)
[2021-04-25] MEDS: ondansetron HCL 4 MG/2 ML VIAL IVPUSH (10:31)
[2021-04-25 10:33] VITALS: BP 112/45; PULSE 83; RESP 17; TEMP 36.6; O2SAT 97
[2021-04-25 10:37] LABS: Basophils Percent Auto 0.2 % (0-2); Eosinophils Absolute Auto 0.3 X10*3/uL (0.0-0.4); Eosinophils Percent Auto 2.8 % (0-4); Hematocrit 30.2 % (37-47); Hemoglobin 8.7 g/dl (12.0-16.0); Imm Gran Abs Auto 0.06 X10*3/uL (0.00-0.03); Imm Gran Pct Auto 0.5 % (0.0-0.4); Lymphocytes Absolute Auto 1.5 X10*3/uL (1.2-4.9); Lymphocytes Percent Auto 13.7 % (20-40); Mean Corpuscular HGB Conc 28.8 g/dl (31.0-35.0); Mean Corpuscular Hemoglobin 23.1 pg (27.0-33.0); Mean Corpuscular Volume 80.3 fL (80-98); Mean Platelet Volume 9.8 fL (9.4-12.3); Monocytes Absolute Auto 0.8 X10*3/uL (0.1-1.2); Monocytes Percent Auto 7.3 % (2-11); Neutrophils Absolute Auto 8.5 X10*3/uL (2.0-8.3); Neutrophils Percent Auto 75.5 % (45-73); Platelet Count 348 X10*3/uL (160-400); Red Blood Count 3.76 X10*6/uL (4.20-5.50); Red Cell Distribution Width 17.1 % (11.0-16.0); White Blood Count 11.2 X10*3/uL (4.8-10.8)
[2021-04-25 10:53] LABS: COVID-19 Test Negative (Negative)
[2021-04-25 10:58] LABS: Alanine Aminotransferase 10 U/L (0-31); Albumin Level 3.8 g/dL (3.5-5.0); Alkaline Phosphatase 120 U/L (39-117); Anion Gap 12 (12-20); Aspartate Amino Transferase 12 U/L (5-31); Bilirubin Direct < 0.2 mg/dL (0.0-0.5); Bilirubin Total 0.4 mg/dL (0.0-1.0); Blood Urea Nitrogen 8 mg/dL (9-16); Calcium 8.4 mg/dL (8.4-10.2); Carbon Dioxide 28 mmol/L (22-29); Chloride 102 mmol/L (96-108); Creatinine Clr Calc Pharmacy 140.4; Estimated Glomerular Filt Rate > 60; Glucose Random 169 mg/dL (60-115); Lipase 29 U/L (8-78); Magnesium 1.8 mg/dL (1.6-2.6); Potassium 4.3 mmol/L (3.3-5.1); Sodium 138 mmol/L (135-145); Total Protein 6.7 g/dL (6.5-8.0)
[2021-04-25 12:00] VITALS: BP 140/82; PULSE 79; RESP 18; O2SAT 99
[2021-04-25 13:07] LABS: Appearance Urine CLEAR; Color Urine YELLOW; Glucose Urine UA NEG (NEG); Leukocyte Esterase Urine NEG (NEG); Nitrite Urine NEG (NEG); Urine Blood NEG (NEG); Urine Ketones NEG (NEG); Urine Protein NEG (NEG-TRACE)
[2021-04-25 13:10] LABS: UPreg QC Valid YES; Urine Pregnancy NEGATIVE (NEGATIVE)
== END 2021-04-25 13:35 | disposition home or self-care (01) ==
PROVIDERS: Emergency Provider Emergency Medicine; PCP Internal Medicine
DX: R11.2 Nausea with vomiting, unspecified (principal); R19.7 Diarrhea, unspecified; Z79.899 Other long term (current) drug therapy; Z20.822 Contact with and (suspected) exposure to COVID-19
CPT/HCPCS: 36415; 80048; 80076; 81003; 81025; 83690; 83735; 85025; 87635; 96361; 96374; 99284; J2405

== ENCOUNTER → 2021-04-28 08:54 | Outpatient (BNV) | payer OTHER, SELFPAY | PROVIDERS: PCP Internal Medicine; Visit Provider Internal Medicine | DX: D50.9 Iron deficiency anemia, unspecified (principal) | CPT/HCPCS: 99213; 99214 ==

== ENCOUNTER 2021-05-18 08:15 | Outpatient (REF) | payer OTHER, SELFPAY | END 2021-05-18 08:16 | disposition home or self-care (01) | LOC: HO.MDS 08:15 | PROVIDERS: PCP Student in an Organized Health Care Education/Training Program; Visit Provider Internal Medicine | DX: D50.9 Iron deficiency anemia, unspecified (principal) | CPT/HCPCS: 96365; 96366; J1200; J1750; Q0163 ==

== ENCOUNTER 2021-07-13 18:09 | Outpatient (REF) | payer OTHER, SELFPAY | END 2021-07-13 18:10 | disposition home or self-care (01) | LOC: HO.LNP 18:09 | PROVIDERS: Visit Provider Internal Medicine | DX: R30.0 Dysuria (principal); K76.9 Liver disease, unspecified | CPT/HCPCS: 87086 ==

== ENCOUNTER 2021-07-15 08:05 | Outpatient (REF) | payer OTHER, SELFPAY ==
[2021-07-15 08:16] LABS: MANUAL DIFF FLAG NO
[2021-07-15 08:39] LABS: Basophils Percent Auto 0.4 % (0-2); Eosinophils Absolute Auto 0.2 X10*3/uL (0.0-0.4); Eosinophils Percent Auto 1.8 % (0-4); Hematocrit 37.2 % (37.0-47.0); Hemoglobin 11.4 g/dl (12.0-16.0); Imm Gran Abs Auto 0.06 X10*3/uL (0.00-0.03); Imm Gran Pct Auto 0.5 % (0.0-0.4); Lymphocytes Absolute Auto 1.9 X10*3/uL (1.2-4.9); Lymphocytes Percent Auto 17.5 % (20-40); Mean Corpuscular HGB Conc 30.6 g/dl (31.0-35.0); Mean Corpuscular Hemoglobin 26.7 pg (27.0-33.0); Mean Corpuscular Volume 87.1 fL (80.0-98.0); Mean Platelet Volume 10.2 fL (9.4-12.3); Monocytes Absolute Auto 0.7 X10*3/uL (0.1-1.2); Monocytes Percent Auto 6.5 % (2-11); Neutrophils Absolute Auto 8.1 x10*3/uL (2.0-8.3); Neutrophils Percent Auto 73.3 % (45-73); Platelet Count 320 X10*3/uL (160-400); Red Blood Count 4.27 X10*6/uL (4.20-5.50); Red Cell Distribution Width 19.4 % (11.0-16.0)
[2021-07-15 08:52] LABS: Alanine Aminotransferase 31 U/L (0-31); Albumin Level 3.8 g/dL (3.5-5.0); Alkaline Phosphatase 158 U/L (39-117); Anion Gap 14 (12-20); Aspartate Amino Transferase 34 U/L (5-31); Bilirubin Total 0.3 mg/dL (0.0-1.0); Blood Urea Nitrogen 9 mg/dL (9-16); Carbon Dioxide 28 mmol/L (22-29); Chloride 101 mmol/L (96-108); Cholesterol 157 mg/dL; Estimated Glomerular Filt Rate > 60; Glucose Fasting 256 mg/dL (60-99); HDL Cholesterol 36 mg/dL; Iron 60 mcg/dL (30-160); LDL Cholesterol Calculated 83 mg/dl; Percent Iron Saturation 18 % (15-50); Potassium 4.5 mmol/L (3.3-5.1); Sodium 138 mmol/L (135-145); Total Iron Binding Capacity 329 mcg/dL (228-428); Total Protein 7.2 g/dL (6.5-8.0); Triglycerides 194 mg/dL; Unsaturated Iron Binding 269 ug/dL
[2021-07-19 14:15] LABS: Vitamin D 25-OH, D2 <4 ng/mL; Vitamin D 25-OH, D3 14 ng/mL; Vitamin D 25-OH, Total 14 ng/mL (30-100)
== END 2021-07-15 08:06 | disposition home or self-care (01) ==
LOC: HO.LAB 08:05
PROVIDERS: PCP Internal Medicine; Visit Provider Internal Medicine
DX: E55.9 Vitamin D deficiency, unspecified (principal); R73.02 Impaired glucose tolerance (oral); D50.9 Iron deficiency anemia, unspecified; E78.5 Hyperlipidemia, unspecified
CPT/HCPCS: 36415; 80053; 80061; 82306; 83540; 85025

== ENCOUNTER 2021-07-25 15:31 | Outpatient (REF) | payer OTHER, SELFPAY | END 2021-07-25 15:32 | disposition home or self-care (01) | LOC: HO.MRI 15:31 | PROVIDERS: PCP Internal Medicine; Visit Provider Internal Medicine | DX: Z13.89 Encounter for screening for other disorder (principal) ==

== ENCOUNTER 2021-07-27 | Outpatient (REF) | payer OTHER, SELFPAY ==
[2021-07-27 17:22] LABS: Influenza A PCR NEGATIVE (Negative); Influenza B PCR NEGATIVE (Negative); Resp Syncy Virus RNA Qual PCR NEGATIVE (Negative); SARS COV2 PCR INHOUSE NEGATIVE (Negative)
== END 2021-07-27 00:01 ==
LOC: HO.MAMMO
PROVIDERS: Physician Assistant; PCP Internal Medicine; Visit Provider Internal Medicine
DX: J02.9 Acute pharyngitis, unspecified (principal); R51.9 Headache, unspecified; Z20.822 Contact with and (suspected) exposure to COVID-19
CPT/HCPCS: 0241U

== ENCOUNTER → 2021-08-23 13:16 | Outpatient (BNVA) | payer OTHER, SELFPAY | PROVIDERS: PCP Internal Medicine; Visit Provider Internal Medicine | DX: G47.33 Obstructive sleep apnea (adult) (pediatric) (principal); J45.909 Unspecified asthma, uncomplicated; Z99.89 Dependence on other enabling machines and devices; E66.01 Morbid (severe) obesity due to excess calories; Z68.43 Body mass index [BMI] 50.0-59.9, adult | CPT/HCPCS: 99202 ==

== ENCOUNTER 2021-10-27 08:57 | Outpatient (REF) | payer OTHER, SELFPAY ==
[2021-10-27 11:28] LABS: MANUAL DIFF FLAG NO
[2021-10-27 11:47] LABS: Basophils Percent Auto 0.3 % (0-2); Eosinophils Absolute Auto 0.2 X10*3/uL (0.0-0.4); Eosinophils Percent Auto 1.1 % (0-4); Hematocrit 34.8 % (37.0-47.0); Hemoglobin 10.9 g/dl (12.0-16.0); Imm Gran Abs Auto 0.07 X10*3/uL (0.00-0.03); Imm Gran Pct Auto 0.5 % (0.0-0.4); Lymphocytes Absolute Auto 1.9 X10*3/uL (1.2-4.9); Lymphocytes Percent Auto 13.3 % (20-40); Mean Corpuscular HGB Conc 31.3 g/dl (31.0-35.0); Mean Corpuscular Hemoglobin 26.9 pg (27.0-33.0); Mean Corpuscular Volume 85.9 fL (80.0-98.0); Mean Platelet Volume 10.5 fL (9.4-12.3); Monocytes Absolute Auto 0.7 X10*3/uL (0.1-1.2); Monocytes Percent Auto 5.1 % (2-11); Neutrophils Absolute Auto 11.1 x10*3/uL (2.0-8.3); Neutrophils Percent Auto 79.7 % (45-73); Platelet Count 315 X10*3/uL (160-400); Red Blood Count 4.05 X10*6/uL (4.20-5.50); Red Cell Distribution Width 15.7 % (11.0-16.0)
[2021-10-27 11:55] LABS: Prothrombin Time 11.9 SEC (9.9-13.0)
[2021-10-27 12:22] LABS: Alanine Aminotransferase 12 U/L (0-31); Albumin Level 3.8 g/dL (3.5-5.0); Alkaline Phosphatase 125 U/L (39-117); Anion Gap 13 (12-20); Aspartate Amino Transferase 15 U/L (5-31); Bilirubin Total 0.2 mg/dL (0.0-1.0); Blood Urea Nitrogen 10 mg/dL (9-16); Carbon Dioxide 23 mmol/L (22-29); Chloride 103 mmol/L (96-108); Estimated Glomerular Filt Rate > 60; Glucose Random 275 mg/dL (60-115); Iron 52 mcg/dL (30-160); Percent Iron Saturation 12 % (15-50); Potassium 4.1 mmol/L (3.3-5.1); Sodium 135 mmol/L (135-145); Total Iron Binding Capacity 422 mcg/dL (228-428); Unsaturated Iron Binding 370 ug/dL
[2021-10-27 12:35] LABS: HBc Num1 0.05 S/CO (0.00-0.79); Hepatitis A Antibody IgM 0.14 Index (0-0.79); Hepatitis B Core Antibody Nonreactive (Nonreactive); Hepatitis B Surface Antigen Negative (Negative); ~Hepatitis A Antibody IgM Nonreactive (Nonreactive)
[2021-10-27 12:36] LABS: Ferritin 22 ng/mL (10-250); Vitamin D 25-OH Total 24.7 ng/mL (>30)
[2021-10-27 12:39] LABS: HBS Num1 0.12 mIU/mL (0-7.99); ~HepC Num1 0.09 S/CO (0.00-0.79); ~Hepatitis B Surface Antibody NONREACTIVE (Nonreactive); ~Hepatitis C Antibody Nonreactive (Nonreactive)
[2021-10-27 12:57] LABS: Vitamin B12 395 pg/mL (200-900)
[2021-10-28 13:27] LABS: Transglutaminase Ab IgG <1.0 U/mL
[2021-10-28 13:42] LABS: Immunoglobulin G 1139 mg/dL (600-1640)
[2021-10-28 13:51] LABS: Alpha 1 Anti-trypsin 194 mg/dL (83-199); Ceruloplasmin 39 mg/dL (18-53)
[2021-10-29 14:27] LABS: H Pylori Breath Test Negative (Negative)
[2021-10-29 18:42] LABS: TS Negative Control Passed; TS Panel A 0; TS Panel B 0; TS Positive Control Passed; TSpotTB Negative (Negative)
[2021-10-30 16:51] LABS: Mitochondrial Antibodies NEGATIVE (NEGATIVE)
[2021-10-31 13:46] LABS: Anti Nuclear Antibody Pattern Nuclear, Homogeneous; Anti Nuclear Antibody Screen POSITIVE (NEGATIVE); Anti Nuclear Antibody Titer 1:40 titer
[2021-10-31 16:32] LABS: Zinc 56 mcg/dL (60-130)
[2021-10-31 22:13] LABS: Vitamin A 32 mcg/dL (38-98)
[2021-11-01 11:27] LABS: Vitamin C 0.2 mg/dL (0.3-2.7)
[2021-11-01 13:35] LABS: Smooth Muscle Antibody <20 U (<20)
[2021-11-01 14:26] LABS: Alpha-Tocopherol 9.1 mg/L (5.7-19.9); Beta-Gamma Tocopherol 1.6 mg/L (<=4.3)
[2021-11-02 13:47] LABS: Liver Kidney Microsomal Ab <=20.0 U (<=20.0)
[2021-11-02 16:22] LABS: Vitamin B6 <2.0 ng/mL (2.1-21.7)
[2021-11-03 02:11] LABS: Vitamin B5 (Pantothenic Acid) 42 ng/mL (<275)
[2021-11-03 14:26] LABS: Soluble Liver Ag Autoantibody <20.1 U (0.0-20.0)
[2021-11-03 22:16] LABS: Nicotinamide <20 ng/mL; Vit B3 - Nicotinic Acid <20 ng/mL
== END 2021-10-27 08:58 | disposition home or self-care (01) ==
LOC: HO.LAB 08:57
PROVIDERS: PCP Internal Medicine; Referring Provider Internal Medicine; Visit Provider Internal Medicine Gastroenterology
DX: K75.81 Nonalcoholic steatohepatitis (NASH) (principal); R10.84 Generalized abdominal pain; R79.82 Elevated C-reactive protein (CRP); K52.839 Microscopic colitis, unspecified; M79.7 Fibromyalgia; E11.9 Type 2 diabetes mellitus without complications; E66.9 Obesity, unspecified; G47.33 Obstructive sleep apnea (adult) (pediatric); J45.909 Unspecified asthma, uncomplicated; R10.33 Periumbilical pain; G89.29 Other chronic pain; Z11.1 Encounter for screening for respiratory tuberculosis
CPT/HCPCS: 36415; 80053; 82103; 82180; 82306; 82390; 82607; 82728; 82746; 82784; 83013; 83520; 83540; 84207; 84446; 84590; 84591; 84630; 85025; 85610; 86015; 86038; 86039; 86255; 86256; 86364; 86376; 86481; 86704; 86706; 86709; 86803; 87340; 99202

== ENCOUNTER → 2021-11-30 13:16 | Outpatient (BNVA) | payer OTHER, SELFPAY | PROVIDERS: PCP Internal Medicine; Referring Provider Internal Medicine; Visit Provider Surgery | DX: K80.20 Calculus of gallbladder without cholecystitis without obstruction (principal); K21.9 Gastro-esophageal reflux disease without esophagitis; K75.81 Nonalcoholic steatohepatitis (NASH); J45.909 Unspecified asthma, uncomplicated; G47.33 Obstructive sleep apnea (adult) (pediatric); Z99.89 Dependence on other enabling machines and devices; E66.01 Morbid (severe) obesity due to excess calories; E11.9 Type 2 diabetes mellitus without complications; D50.9 Iron deficiency anemia, unspecified; R10.84 Generalized abdominal pain; R19.7 Diarrhea, unspecified; Z68.43 Body mass index [BMI] 50.0-59.9, adult | CPT/HCPCS: 99202 ==

== ENCOUNTER → 2021-12-14 08:19 | Outpatient (BNVA) | payer OTHER, SELFPAY | PROVIDERS: PCP Internal Medicine; Visit Provider Physician Assistant | DX: E66.9 Obesity, unspecified (principal); Z68.43 Body mass index [BMI] 50.0-59.9, adult; E11.65 Type 2 diabetes mellitus with hyperglycemia; Z79.4 Long term (current) use of insulin | CPT/HCPCS: 82947; 99202 ==

== ENCOUNTER → 2021-12-26 14:55 | Outpatient (BNVA) | payer OTHER, SELFPAY | PROVIDERS: PCP Internal Medicine; Visit Provider Registered Nurse Diabetes Educator | DX: E11.65 Type 2 diabetes mellitus with hyperglycemia (principal) | CPT/HCPCS: 99211 ==

== ENCOUNTER → 2022-01-11 08:55 | Outpatient (BNVA) | payer OTHER, SELFPAY | PROVIDERS: PCP Internal Medicine; Visit Provider Dietitian, Registered | DX: E11.65 Type 2 diabetes mellitus with hyperglycemia (principal); Z71.3 Dietary counseling and surveillance | CPT/HCPCS: 97802 ==

== ENCOUNTER → 2022-02-15 09:16 | Outpatient (BNVA) | payer OTHER, SELFPAY | PROVIDERS: PCP Internal Medicine; Visit Provider Dietitian, Registered | DX: E11.65 Type 2 diabetes mellitus with hyperglycemia (principal) | CPT/HCPCS: 97803 ==

== ENCOUNTER 2022-03-10 10:11 | Outpatient (REF) | payer OTHER, SELFPAY ==
[2022-03-10 11:45] LABS: Anion Gap 17 (12-20); Blood Urea Nitrogen 10 mg/dL (9-16); Calcium 9.1 mg/dL (8.4-10.2); Carbon Dioxide 25 mmol/L (22-29); Chloride 101 mmol/L (96-108); Estimated Glomerular Filt Rate > 60; Glucose Random 127 mg/dL (60-115); Potassium 4.3 mmol/L (3.3-5.1); Sodium 139 mmol/L (135-145)
== END 2022-03-10 10:12 | disposition home or self-care (01) ==
LOC: HO.LAB 10:11
PROVIDERS: PCP Internal Medicine; Visit Provider Internal Medicine Endocrinology, Diabetes & Metabolism
DX: E11.65 Type 2 diabetes mellitus with hyperglycemia (principal)
CPT/HCPCS: 36415; 80048

== ENCOUNTER → 2022-03-15 15:02 | Outpatient (BNVA) | payer OTHER, SELFPAY | PROVIDERS: PCP Internal Medicine; Visit Provider Internal Medicine Endocrinology, Diabetes & Metabolism | DX: E11.65 Type 2 diabetes mellitus with hyperglycemia (principal); Z71.3 Dietary counseling and surveillance | CPT/HCPCS: 82947; 83036; 99212 ==

== ENCOUNTER 2022-04-01 13:06 | Emergency (ER) | payer OTHER, SELFPAY ==
[2022-04-01 14:55] VITALS: BP 130/63; PULSE 91; RESP 18; TEMP 36; O2SAT 97; BMI 49.4
[2022-04-01 15:25] LABS: COVID-19 Test Negative (Negative); IDNOW Serial# 16C4AD1C
== END 2022-04-01 17:25 | disposition left against medical advice (07) ==
LOC: HO.ED 17:19
PROVIDERS: Emergency Provider Emergency Medicine; PCP Internal Medicine
DX: R06.02 Shortness of breath (principal); Z20.822 Contact with and (suspected) exposure to COVID-19
CPT/HCPCS: 87635; 99281; 99283

== ENCOUNTER 2022-04-11 08:20 | Outpatient (REF) | payer OTHER, SELFPAY ==
[2022-04-11 08:36] LABS: MANUAL DIFF FLAG NO
[2022-04-11 09:07] LABS: Basophils Percent Auto 0.3 % (0-2); Eosinophils Absolute Auto 0.2 X10*3/uL (0.0-0.4); Hemoglobin 8.9 g/dl (12.0-16.0); Imm Gran Pct Auto 0.9 % (0.0-0.4); Lymphocytes Absolute Auto 1.9 X10*3/uL (1.2-4.9); Lymphocytes Percent Auto 16.7 % (20-40); Mean Corpuscular HGB Conc 27.8 g/dl (31.0-35.0); Mean Corpuscular Volume 75.7 fL (80.0-98.0); Mean Platelet Volume 9.8 fL (9.4-12.3); Monocytes Absolute Auto 0.7 X10*3/uL (0.1-1.2); Monocytes Percent Auto 6.2 % (2-11); Neutrophils Absolute Auto 8.6 x10*3/uL (2.0-8.3); Neutrophils Percent Auto 73.9 % (45-73); Platelet Count 406 X10*3/uL (160-400); Red Blood Count 4.23 X10*6/uL (4.20-5.50); Red Cell Distribution Width 18.9 % (11.0-16.0); White Blood Count 11.6 X10*3/uL (4.8-10.8)
[2022-04-11 09:42] LABS: Creatinine Urine 85.52 mg/dL
[2022-04-11 09:58] LABS: Vitamin D 25-OH Total 32.9 ng/mL (>30)
[2022-04-11 09:59] LABS: Alanine Aminotransferase 12 U/L (0-31); Albumin Level 3.8 g/dL (3.5-5.0); Alkaline Phosphatase 112 U/L (39-117); Anion Gap 17 (12-20); Aspartate Amino Transferase 15 U/L (5-31); Bilirubin Total 0.2 mg/dL (0.0-1.0); Blood Urea Nitrogen 9 mg/dL (9-16); Calcium 8.7 mg/dL (8.4-10.2); Carbon Dioxide 25 mmol/L (22-29); Chloride 103 mmol/L (96-108); Cholesterol 127 mg/dL; Estimated Glomerular Filt Rate > 60; Glucose Fasting 156 mg/dL (60-99); HDL Cholesterol 35 mg/dL; LDL Cholesterol Calculated 50 mg/dl; Potassium 4.5 mmol/L (3.3-5.1); Sodium 140 mmol/L (135-145); Total Protein 6.7 g/dL (6.5-8.0); Triglycerides 210 mg/dL
[2022-04-13 13:41] LABS: TS Negative Control Passed; TS Panel A 0; TS Panel B 0; TS Positive Control Passed; TSpotTB Negative (Negative)
== END 2022-04-11 08:21 | disposition home or self-care (01) ==
LOC: HO.LAB 08:20
PROVIDERS: Internal Medicine Endocrinology, Diabetes & Metabolism; PCP Internal Medicine; Visit Provider Internal Medicine
DX: E11.65 Type 2 diabetes mellitus with hyperglycemia (principal); E55.9 Vitamin D deficiency, unspecified; E78.5 Hyperlipidemia, unspecified; D64.9 Anemia, unspecified; Z71.3 Dietary counseling and surveillance; Z11.1 Encounter for screening for respiratory tuberculosis
CPT/HCPCS: 36415; 80053; 80061; 82043; 82306; 85025; 86481; 97803

== ENCOUNTER → 2022-05-29 12:43 | Outpatient (BNVA) | payer OTHER, SELFPAY | PROVIDERS: PCP Internal Medicine; Visit Provider Physician Assistant | DX: E66.01 Morbid (severe) obesity due to excess calories (principal); E11.65 Type 2 diabetes mellitus with hyperglycemia; K75.81 Nonalcoholic steatohepatitis (NASH); G47.33 Obstructive sleep apnea (adult) (pediatric); K21.9 Gastro-esophageal reflux disease without esophagitis; G43.009 Migraine without aura, not intractable, without status migrainosus; M79.7 Fibromyalgia; Z99.89 Dependence on other enabling machines and devices; Z68.42 Body mass index [BMI] 45.0-49.9, adult | CPT/HCPCS: 99202; 99212 ==

== ENCOUNTER 2022-05-30 08:48 | Outpatient (REF) | payer OTHER, SELFPAY | END 2022-05-30 08:49 | disposition home or self-care (01) | LOC: HO.MDS 08:48 | PROVIDERS: Visit Provider Internal Medicine | DX: D50.9 Iron deficiency anemia, unspecified (principal) | CPT/HCPCS: 96365; J1756 ==

== ENCOUNTER 2022-06-07 07:45 | Outpatient (REF) | payer OTHER, SELFPAY | END 2022-06-07 07:46 | disposition home or self-care (01) | LOC: HO.MDS 07:45 | PROVIDERS: Visit Provider Internal Medicine | DX: D50.9 Iron deficiency anemia, unspecified (principal) | CPT/HCPCS: 96365; J1756 ==

== ENCOUNTER 2022-06-14 07:39 | Outpatient (REF) | payer OTHER, SELFPAY | END 2022-06-14 07:40 | disposition home or self-care (01) | LOC: HO.MDS 07:39 | PROVIDERS: Visit Provider Internal Medicine | DX: D50.9 Iron deficiency anemia, unspecified (principal) | CPT/HCPCS: 96365; J1756 ==

== ENCOUNTER 2022-06-28 07:34 | Outpatient (REF) | payer OTHER, SELFPAY | END 2022-06-28 07:35 | disposition home or self-care (01) | LOC: HO.MDS 07:34 | PROVIDERS: Visit Provider Internal Medicine | DX: D50.9 Iron deficiency anemia, unspecified (principal); E66.09 Other obesity due to excess calories; E11.65 Type 2 diabetes mellitus with hyperglycemia; Z68.43 Body mass index [BMI] 50.0-59.9, adult; Z71.3 Dietary counseling and surveillance | CPT/HCPCS: 96365; 97802; J1756 ==

== ENCOUNTER 2022-06-28 09:01 | Outpatient (REF) | payer OTHER, SELFPAY ==
--- NOTE | ~2022-06-28 | XR_ITS ---
EXAMINATION: XR CHEST CLINICAL INFORMATION: Type 2 diabetes COMPARISON: Previous chest x-ray October 2014 TECHNIQUE: 2 views of the chest were obtained. FINDINGS: No significant abnormality is noted involving the heart, lungs, mediastinum, bony thorax or soft tissues. XR/XR chest 2V IMPRESSION: Unremarkable examination.
--- NOTE | 2022-06-28 09:07 | ECG_ITS ---
Test Reason : typeII DM Blood Pressure : / mmHG Vent. Rate : 073 BPM Atrial Rate : 073 BPM P-R Int : 140 ms QRS Dur : 080 ms QT Int : 390 ms P-R-T Axes : 052 029 017 degrees QTc Int : 429 ms Normal sinus rhythm Normal ECG No previous ECGs available Referred By: Cherry Galicia Electronically Signed By:Gadiel Tsang
[2022-06-28 10:28] LABS: Alanine Aminotransferase 11 U/L (0-31); Albumin Level 3.8 g/dL (3.5-5.0); Alkaline Phosphatase 103 U/L (39-117); Aspartate Amino Transferase 13 U/L (5-31); Bilirubin Total 0.2 mg/dL (0.0-1.0); Blood Urea Nitrogen 11 mg/dL (9-16); Calcium 9.1 mg/dL (8.4-10.2); Estimated Glomerular Filt Rate > 60; Glucose Random 149 mg/dL (60-115); Insulin 19 uU/mL (2-29); Total Protein 6.7 g/dL (6.5-8.0)
[2022-06-28 10:38] LABS: Anion Gap 16 (12-20); Carbon Dioxide 27 mmol/L (22-29); Chloride 101 mmol/L (96-108); Folate 13.5 ng/mL (> or = 4.0); Potassium 4.5 mmol/L (3.3-5.1); Sodium 139 mmol/L (135-145); Vitamin B12 499 pg/mL (200-900)
[2022-07-03 06:19] LABS: Zinc 68 mcg/dL (60-130)
[2022-07-03 14:48] LABS: Vitamin B1 10 nmol/L (8-30)
[2022-07-04 09:13] LABS: Vitamin A 35 mcg/dL (38-98)
== END 2022-06-28 09:02 | disposition home or self-care (01) ==
LOC: HO.XRAY 09:01
PROVIDERS: PCP Internal Medicine; Visit Provider Physician Assistant
DX: E11.65 Type 2 diabetes mellitus with hyperglycemia (principal); K75.81 Nonalcoholic steatohepatitis (NASH); G47.33 Obstructive sleep apnea (adult) (pediatric); Z99.89 Dependence on other enabling machines and devices; E66.01 Morbid (severe) obesity due to excess calories
CPT/HCPCS: 36415; 71046; 80053; 82607; 82746; 83525; 84425; 84590; 84630; 93005

== ENCOUNTER 2022-07-17 11:09 | Outpatient (REF) | payer OTHER, SELFPAY ==
--- NOTE | ~2022-07-17 | MM_ITS ---
EXAMINATION: MM DIAGNOSTIC DIGITAL BREAST TOMOSYNTHESIS, BILATERAL US DIAGNOSTIC ULTRASOUND BREAST, LEFT CLINICAL INFORMATION: 41-year-old with palpable concern medial left breast for approximately 2 months. Due for yearly. The lifetime risk of breast cancer based on the Tyrer-Cuzick Model is 16%. COMPARISON: Mammography: 06/15/2020, 08/25/2015. TECHNIQUE: Digital breast tomosynthesis is performed in both the craniocaudal and mediolateral oblique views along with computer-aided detection (CAD). Synthesized 2D images are generated from the tomosynthesis. Additional views are provided: Right CC, left CC x2, left MLO. Ultrasound left breast is targeted to the area of palpable concern medial breast. Grayscale imaging and color Doppler are performed without and with harmonics. Patient is able to point to the area at time of imaging. FINDINGS: There are scattered areas of fibroglandular density (ACR BI-RADS breast composition Category b). Breast tissue composition borders on predominantly fatty. There is no interval significant mass or architectural abnormality or abnormal calcifications. The right breast is unremarkable. There are scattered bilateral round and dermal calcifications again seen. The palpable area left breast shows subtle fine rim surrounding isoechoic fatty tissue beneath the skin approximately 1.2 x 0.6 cm in size. The appearance is of a fat lobule or possibly fat necrosis. No skin thickening or coarsening of the Brian's ligaments. Ultrasound targeted to the area of concern demonstrates no cystic or solid mass or architectural abnormality. No focal duct ectasia. As noted on mammography, there is an oval area of hyperechogenicity just beneath the skin corresponding to the palpable concern, measuring approximately 0.6 x 1.8 cm, either fat lobule or possibly fat necrosis. No skin thickening or edema tracking in soft tissue planes. No hyperemia. Results are discussed with the patient at time of visit using an spanish medical interpreter. There is no prior history of recent or prior trauma recalled. The finding on breast imaging today appears to represent benign fat lobule or possibly fat necrosis. Management recommendations are for follow-up left diagnostic mammography in 6 months. Ultrasound may be included at same appointment as warranted. MM/MM tomosynthesis diagnostic BI IMPRESSION: Left: -Palpable concern likely related to benign fat lobule or possibly fat necrosis residing just beneath the skin. Remainder left breast unremarkable. Right: -No mammographic evidence of malignancy. ASSESSMENT: BI-RADS 3: Probably Benign RECOMMENDATION: Diagnostic left mammography in 6 months. This patient's information was entered into a reminder system with a target due date for their next mammogram.
== END 2022-07-17 11:10 | disposition home or self-care (01) ==
LOC: HO.MAMMO 11:09
PROVIDERS: PCP Internal Medicine; Visit Provider Internal Medicine
DX: R92.2 Inconclusive mammogram (principal)
CPT/HCPCS: 76642; 77062; 77066

== ENCOUNTER 2022-09-13 10:04 | Outpatient (REF) | payer OTHER, SELFPAY ==
[2022-09-13 14:21] LABS: CT PCR NOT DETECTED (Not Detect.); NG PCR NOT DETECTED (Not Detect.)
[2022-09-14 13:14] LABS: BV Int Neg Control Negative (Negative); BV Int Pos Control Positive (Positive)
== END 2022-09-13 10:05 | disposition home or self-care (01) ==
LOC: HO.LNP 10:04
PROVIDERS: PCP Internal Medicine; Visit Provider Advanced Practice Midwife
DX: Z01.419 Encounter for gynecological examination (general) (routine) without abnormal findings (principal); E66.01 Morbid (severe) obesity due to excess calories; G47.33 Obstructive sleep apnea (adult) (pediatric); D50.9 Iron deficiency anemia, unspecified; N92.4 Excessive bleeding in the premenopausal period; D21.9 Benign neoplasm of connective and other soft tissue, unspecified; E11.65 Type 2 diabetes mellitus with hyperglycemia; Z79.899 Other long term (current) drug therapy; Z99.89 Dependence on other enabling machines and devices
CPT/HCPCS: 0353U; 87480; 87510; 87660

== ENCOUNTER 2022-12-06 13:16 | Outpatient (REF) | payer OTHER, SELFPAY | END 2022-12-06 13:17 | disposition home or self-care (01) | LOC: HO.MDS 13:16 | PROVIDERS: Visit Provider Internal Medicine | DX: D50.9 Iron deficiency anemia, unspecified (principal) | CPT/HCPCS: 96365; J1756 ==

== ENCOUNTER 2023-03-01 09:50 | Outpatient (REF) | payer OTHER, SELFPAY ==
[2023-03-01 11:16] LABS: Anion Gap 15 (12-20)
[2023-03-01 14:15] LABS: Alanine Aminotransferase 10 U/L (0-31); Albumin Level 3.6 g/dL (3.5-5.0); Alkaline Phosphatase 113 U/L (39-117); Aspartate Amino Transferase 14 U/L (5-31); Bilirubin Total 0.2 mg/dL (0.0-1.0); Blood Urea Nitrogen 9 mg/dL (9-16); Calcium 8.7 mg/dL (8.4-10.2); Carbon Dioxide 21 mmol/L (22-29); Chloride 105 mmol/L (96-108); Cholesterol 114 mg/dL; Estimated Glomerular Filt Rate > 60; Glucose Fasting 159 mg/dL (60-99); HDL Cholesterol 32 mg/dL; LDL Cholesterol Calculated 42 mg/dl; Potassium 4.1 mmol/L (3.3-5.1); Sodium 137 mmol/L (135-145); Total Protein 6.8 g/dL (6.5-8.0); Triglycerides 204 mg/dL; Vitamin D 25-OH Total 38.3 ng/mL (>30)
[2023-03-01 19:26] LABS: Creatinine Urine 68.27 mg/dL; Microalbum/Creatinine Ratio Ur 10.2 ug/mg cr
[2023-03-04 16:19] LABS: TS Negative Control Passed; TS Panel A 0; TS Panel B 0; TS Positive Control Passed; TSpotTB Negative (Negative)
== END 2023-03-01 09:51 | disposition home or self-care (01) ==
LOC: HO.LAB 09:50
PROVIDERS: PCP Internal Medicine; Visit Provider Internal Medicine
DX: E11.65 Type 2 diabetes mellitus with hyperglycemia (principal); E55.9 Vitamin D deficiency, unspecified; E78.5 Hyperlipidemia, unspecified; Z11.1 Encounter for screening for respiratory tuberculosis
CPT/HCPCS: 36415; 80053; 80061; 82043; 82306; 86481

== ENCOUNTER 2023-04-02 09:50 | Outpatient (AMB) | payer OTHER, SELFPAY ==
[2023-04-02 10:18] VITALS: BP 118/56; PULSE 90; O2SAT 97; BMI 47.6
--- NOTE | 2023-04-02 10:18 | MHC.PC.OV ---
Vital Signs 04/02/23 10:18 Height 5 ft 3 in Weight 269 lb BMI 47.6 BP 118/56 L Blood Pressure Location Lt brachial Position Sitting Pulse 90 Pulse Source Pulse Oximeter Temp Source Skin Pulse Oximetry (%) 97 Oxygen Delivery Method Room Air Intake Visit Reasons: DM F/U Intake Note: Patient is here to follow up on DM Powder Press Operator Required: Yes Powder Press Operator Language: Icelandic Allergies horse dander [HORSE DANDER] Allergy (Intermediate, Verified 04/02/23 10:52) Rash mold [MOLD] Allergy (Intermediate, Verified 04/02/23 10:52) rash pollen extracts [POLLEN] Allergy (Intermediate, Verified 04/02/23 10:52) Rash trazodone Adverse Reaction (Intermediate, Verified 04/02/23 10:52) dry mouth, sleepwalking GRASS Allergy (Intermediate, Uncoded 04/02/23 10:52) Rash Medication List - Last Reconciled 04/02/23 by ROBY Hernandez albuterol sulfate 90 mcg/actuation (Ventolin HFA) 2 puffs inhalation Q6H PRN blood sugar diagnostic (ReliOn Prime Test Strips) As directed blood-glucose meter (ReliOn All-In-One Meter kit) As directed bupropion HCl 150 mg PO QAM 90 days cetirizine (Zyrtec) 10 mg PO DAILY 90 days cholecalciferol (vitamin D3) 25 mcg PO DAILY 90 days duloxetine 60 mg PO DAILY empagliflozin (Jardiance) 25 mg PO DAILY 90 days estazolam 2 mg PO BEDTIME fluticasone propionate 50 mcg/actuation (Flonase Allergy Relief) 1 spray intranasal DAILY lancets (FreeStyle Lancets) Use 1 lancet once a day lancets As directed lisinopril 5 mg PO DAILY 90 days metformin 1,000 mg PO BID 90 days vitamin A acetate 10,000 units sublingual DAILY Tobacco use date assessed: 04/02/23 HPI DM F/U HPI Details Patient is a 42-year-old female who presents today to follow-up on chronic conditions. Patient of Dr. Griffith. Medical history significant for fibromyalgia, RASTA, iron deficiency anemia-followed by Dr. Nevarez-reports receiving iron injections, obesity, GERD, diabetes, asthma, depression among others. Patient reports that she is compliant medications and denies side effects. Patient reports that she will call back to weight management for an appointment. Patient will be having diabetic eye exam 04/2023. She reports that about 3 weeks ago she did have left-sided head numbness this have resolved, denies any symptoms in the office today. Patient is a Icelandic-speaking and Anup was helping with interpretation. [facility]LY [facility] Medical History Active asthma Arthralgia Asthma Cholelithiasis Depression Diabetes mellitus Diverticulitis Dysuria Eczema Edema Exposure to COVID-19 virus Fibromyalgia GERD (gastroesophageal reflux disease) Impaired glucose tolerance Insomnia Iron deficiency anemia Iron deficiency anemia Liver lesion Migraines Morbid obesity Morbid obesity with BMI of 50.0-59.9, adult RASTA (obstructive sleep apnea) RASTA on CPAP RASTA on CPAP Paresthesia Super obese Uncontrolled type 2 diabetes mellitus with hyperglycemia Surgical History History of appendectomy History of tonsillectomy History of tubal ligation Family History Father Diabetes Mother Diabetes Hypertension Maternal Grandmother Breast cancer Maternal Grandfather Prostate cancer Social History Household Members: Children Housing: Apartment Alcohol intake: former Patient Tobacco Use Status: Never used Tobacco e-Cigarette/Vaping Use: Never Used Second Hand Smoke Exposure: No service: No Current occupational status: employed Current occupational exposures/hazards: No Cognitive needs: No Hearing needs: No Vision needs: No Female Reproductive History Menstrual Age of Menarche: 10 Questionnaire Thrive Questionnaire Date Thrive assessed: 07/11/22 AUDIT C Alcohol Use Questionnaire (AUDIT-C) 1. How often do you have a drink containing alcohol?: Never Total Score: 0 Score Reviewed/Action Taken: No GENEVIEVE-7 AMB Questionnaire GENEVIEVE-7 Date GENEVIEVE - 7 assessed: 12/11/22 Source: Developed by Drs. Dhaval Pacheco, Shireen Pulido, Thor Rodriguez and colleagues, with an educational shirlene from [employer]. Review of Systems Const Denies body aches, Denies chills, Denies fever(s) and Denies headache(s) Eyes Denies change in vision ENT Denies dizziness, Denies otalgia, Denies headache(s), Denies nasal discharge, Denies sinus pain and Denies sore throat Card Denies chest pain, Denies edema, Denies lightheadedness and Denies dyspnea Resp Denies cough, Denies dyspnea and Denies wheezing GI Denies abdominal pain Denies dysuria Musc Denies myalgias Skin/Breast Denies rash Neuro Denies dizziness and Denies headache(s) Aller/Immun Denies wheezing Physical exam (Primary Care) Vital Signs: Last Vital Signs Pulse 90 04/02/23 10:18 BP 118/56 L 04/02/23 10:18 Pulse Ox 97 04/02/23 10:18 Oxygen Delivery Method Room Air 04/02/23 10:18 BMI result Body Mass Index 47.6 Tobacco/Smoking Status: Tobacco use Status Tobacco use date assessed 04/02/23 04/02/23 10:26 Patient Tobacco Use Status Never used Tobacco 04/02/23 10:26 e-Cigarette/Vaping Use Never Used 04/02/23 10:26 Thrive Assessment: Date of Thrive Assessment Date Thrive assessed 07/11/22 04/02/23 10:26 Const General: cooperative and no acute distress Orientation/consciousness: patient oriented x3 HENMT Head: Yes normocephalic and Yes atraumatic Face and sinus: Yes sinuses nontender Mouth: oropharynx normal and moist mucous membranes Throat: Yes posterior oropharynx normal Eyes General: appearance normal, both eyes and all related structures Pupils: Equal, round and reactive pupils present EOM: EOMs intact bilaterally Neck Neck: Yes normal visual inspection, Yes full ROM and Yes no lymphadenopathy Resp Effort & Inspection: normal respiratory effort and able to speak in complete sentences Auscultation: clear to auscultation bilaterally, no crackles, no rales, no rhonchi and no wheezes Cardio Rate: regular rate Rhythm: regular rhythm Heart sounds: S1 normal heart sound present and S2 normal heart sound present GI Auscultation: normal bowel sounds Skin General skin exam: no rashes or lesions noted Neuro General: patient oriented x3 and CN's II-XI intact bilaterally Cranial nerves: Yes Equal, round and reactive pupils present Gait exam (Neuro): Normal gait present Motor exam (neuro): 5/5 motor strength present throughout Extrem General: Yes full ROM and No edema Results AMB Hemoglobin A1c AMB Hemoglobin A1c 6.9 % Last Edit by ANAND Fleming on 04/02/23 10:29 Results Reviewed Results Reviewed: Laboratory Last Values Hgb A1c (Clinic) 6.9 % (4.0-6.0) H 04/02/23 10:27 Assessment and Plan Assessment & Plan (1) Uncontrolled type 2 diabetes mellitus with hyperglycemia: Code(s): E11.65 - Type 2 diabetes mellitus with hyperglycemia Plan: A1c today 6.9 Continue current treatment Low-carbohydrate diet (2) Asthma: Comment: She does have history of intermittent cough and some wheezing, probably due to bronchial asthma, Seems to be well controlled at present. [place] : Continue fluticasone/salmeterol 232/14 mcgm 2 puffs b.i.d. Code(s): J45.909 - Unspecified asthma, uncomplicated Plan: Stable Continue albuterol inhaler p.r.n. (3) Morbid obesity: Code(s): E66.01 - Morbid (severe) obesity due to excess calories Plan: Healthy food choices and exercise as tolerated Continue to follow-up with weight management (4) Iron deficiency anemia: Code(s): D50.9 - Iron deficiency anemia, unspecified Plan: Continue to follow-up with Hematology (5) Essential hypertension: Code(s): I10 - Essential (primary) hypertension Plan: Continue lisinopril Low-sodium diet and weight loss (6) Mild recurrent major depression: Code(s): F33.0 - Major depressive disorder, recurrent, mild Plan: Stable with bupropion Orders: Orders AMB Hemoglobin A1c Today E11.9 - Type 2 diabetes mellitus without complications Coding Level of Care Code Est Pt Level 4 (34788) Diagnoses Uncontrolled type 2 diabetes mellitus with hyperglycemia E11.65 Asthma J45.909 Morbid obesity E66.01 Iron deficiency anemia D50.9 Essential hypertension I10 Mild recurrent major depression F33.0
== END 2023-04-02 11:02 | disposition home or self-care (01) ==
PROVIDERS: PCP Internal Medicine; Visit Provider Nurse Practitioner Family
DX: E11.65 Type 2 diabetes mellitus with hyperglycemia (principal); J45.909 Unspecified asthma, uncomplicated; E66.01 Morbid (severe) obesity due to excess calories; I10 Essential (primary) hypertension; F33.0 Major depressive disorder, recurrent, mild; Z68.42 Body mass index [BMI] 45.0-49.9, adult; D50.9 Iron deficiency anemia, unspecified
CPT/HCPCS: 83036; 99214

== ENCOUNTER 2023-04-09 10:04 | Outpatient (REF) | payer OTHER, SELFPAY | END 2023-04-09 10:05 | disposition home or self-care (01) | LOC: HO.LNP 10:04 | PROVIDERS: PCP Internal Medicine; Visit Provider Advanced Practice Midwife | DX: N92.0 Excessive and frequent menstruation with regular cycle (principal); N92.4 Excessive bleeding in the premenopausal period; E66.01 Morbid (severe) obesity due to excess calories; D21.9 Benign neoplasm of connective and other soft tissue, unspecified; E11.65 Type 2 diabetes mellitus with hyperglycemia; Z68.42 Body mass index [BMI] 45.0-49.9, adult; Z79.899 Other long term (current) drug therapy | CPT/HCPCS: 58100; 88305; 99212 ==

== ENCOUNTER 2023-04-09 10:04 | Outpatient (AMB) | payer OTHER, SELFPAY ==
[2023-04-09 10:23] VITALS: BMI 48.4
--- NOTE | 2023-04-09 10:23 | MHC.OFFVIS ---
Intake Vital Signs 04/09/23 10:23 Height 5 ft 3 in Weight 273 lb BMI 48.4 Intake Visit Reasons: Heavy Menstrual Intake Note: Having to change pads every hour and having to put 4 pads on underware for 3 months now. Also has been having a lot of clots and if she is standing for a while she feels like she is urinating but it's not urine it's blood. Presetter Operator Required: Yes Presetter Operator Language: Tongan Information Interpreted: non-clinical & clinical Water Regulator And Valve Repairer: Water Regulator And Valve Repairer Present (Elizabethyn) Allergies horse dander [HORSE DANDER] Allergy (Intermediate, Verified 04/09/23 10:28) Rash mold [MOLD] Allergy (Intermediate, Verified 04/09/23 10:28) rash pollen extracts [POLLEN] Allergy (Intermediate, Verified 04/09/23 10:28) Rash trazodone Adverse Reaction (Intermediate, Verified 04/09/23 10:28) dry mouth, sleepwalking GRASS Allergy (Intermediate, Uncoded 04/09/23 10:28) Rash Medication List - Last Reconciled 04/09/23 by Cari Silvestre CNM albuterol sulfate 90 mcg/actuation (Ventolin HFA) 2 puffs inhalation Q6H PRN blood sugar diagnostic (ReliOn Prime Test Strips) As directed blood-glucose meter (ReliOn All-In-One Meter kit) As directed bupropion HCl 150 mg PO QAM 90 days cetirizine (Zyrtec) 10 mg PO DAILY 90 days cholecalciferol (vitamin D3) 25 mcg PO DAILY 90 days duloxetine 60 mg PO DAILY empagliflozin (Jardiance) 25 mg PO DAILY 90 days estazolam 2 mg PO BEDTIME fluticasone propionate 50 mcg/actuation (Flonase Allergy Relief) 1 spray intranasal DAILY lancets (FreeStyle Lancets) Use 1 lancet once a day lancets As directed lisinopril 5 mg PO DAILY 90 days metformin 1,000 mg PO BID 90 days vitamin A acetate 10,000 units sublingual DAILY Is last menstrual period known: Yes Last menstrual period: 04/05/23 Post menopausal: No HPI Heavy Menstrual HPI Details Chart reviewed patient was here for a discussion about menorrhagia in August and entire plan was made for proceeding with plans to evaluate with an ultrasound and endometrial biopsy. The patient says she lost insurance and was not able to come and so that appointment and plan did not occur her. She now has insurance again and wants to restart now she says her periods have been getting heavier and heavier they are coming extremely regularly and they are very heavy from about day 2-3 for about 3 days in total they are heavy enough for about 6 days and then they continue on with a little bit of a pink discharge for up to 14 days total every month she is feeling very very tired and also agrees that she thinks she looks pale she says her hemoglobin was checked in November and it was 11. She says her blood pressure was in fact a little bit low at her last visit and her blood sugars are well controlled at this time. She does remember previous discussions with both myself and Dr. Thomas about evaluation in options she did have an endometrial biopsy in the past and found it extremely uncomfortable. She is sexually active but has not had sex in about a month. She also had been considering and wondering about just taking everything out. [facility] Medical History Uncontrolled type 2 diabetes mellitus with hyperglycemia Cholelithiasis Asthma RASTA on CPAP Morbid obesity Exposure to COVID-19 virus Diabetes mellitus Dysuria RASTA on CPAP Liver lesion Iron deficiency anemia Diverticulitis Impaired glucose tolerance GERD (gastroesophageal reflux disease) Insomnia Paresthesia Morbid obesity with BMI of 50.0-59.9, adult Arthralgia Edema Depression Active asthma Super obese Eczema Migraines Iron deficiency anemia RASTA (obstructive sleep apnea) Fibromyalgia Surgical History History of tonsillectomy History of tubal ligation History of appendectomy Family History Father Diabetes Mother Diabetes Hypertension Maternal Grandmother Breast cancer Maternal Grandfather Prostate cancer Social History Household Members: Children Housing: Apartment Alcohol intake: former Patient Tobacco Use Status: Never used Tobacco e-Cigarette/Vaping Use: Never Used Second Hand Smoke Exposure: No service: No Current occupational status: employed Current occupational exposures/hazards: No Cognitive needs: No Hearing needs: No Vision needs: No Female Reproductive History Menstrual Age of Menarche: 10 Duration of menses: >10 days Date of last menstrual period: 04/05/23 control method: other (tubal ligation) Total pregnancies: 2 Full term: 2 Number of Living Children: 2 Date of last pap smear: 08/18/20 (negative) Physical Exam Vital Signs: BMI result Body Mass Index 48.4 Speculum Exam - Vagina: normal appearance of the vagina and other Speculum Exam - Cervix: normal appearance of the cervix and Other cervical findings present (limited views) Bimanual exam- vagina & uterus: other (uterus difficult to assess 2' habitus) Bimanual Exam- Adnexa, other: Other (palpation of adnexae limited 2' habitus) Office Procedures Endometrial Biopsy Details: Patient is here for an endometrial biopsy. I explained the procedure and what the goal of the obtaining the sample is, and why we need need to do it today. Patient signed consent form, and appropriate testing was done beforehand. test is negative Patient was placed in recumbent position. Speculum was placed to visualize cervix the cervix was cleansed with Betadine. A tenaculum was gently placed to straighten the axis. The uterus was sounded to 8cm. The endometrial biopsy Pipelle was inserted gently, and withdrawn to obtain sampling of the endometrial tissue for 1 pass. Note 3 very large speculums were tried in efforts to have good visualization of the cervix which with patient Valsalva was were moving out of view during the visit/exam with the os pointing directly down. One apparently adequate sample was obtained but the patient declined for me to try it again after the challenge of repeat speculum placements The tenaculum was removed and the cervix was swabbed gently as any bleeding subsided. the patient sat up after removal of the speculum. She is to return for discussion of the results and review of any other testing. [id number] Biopsy Results AMB Test Urine AMB Test Urine Negative Last Edit by ANAND Velez on 04/09/23 12:33 Results Reviewed Results Reviewed: Laboratory Last Values Tst Clinic Negative 04/09/23 12:30 Name: Miryam Salazar Age/Sex: 42/F : 1980 Unit#: [id number] Attend Dr: Saira Nevarez MD Re11/26/22 Status: REG RCR Location: [facility] Disch: SPEC : [id number] DEANNA: 11/26/22 STATUS: COMP REQ : [id number] RECD: 11/26/22 [facility] DR: Saira Nevarez MD COMP: 11/26/22 ENTERED: 11/26/22 [facility] DR: Maribell West MD ORDERED: CBC Auto Diff Test Result Flag Reference Site WBC 14.2 H 4.8-10.8 X10*3/uL RBC 4.08 L 4.20-5.50 X10*6/uL HGB 9.2 L 12.0-16.0 g/dl HCT 32.4 L 37.0-47.0 % MCV 79.4 L 80.0-98.0 fL MCH 22.5 L 27.0-33.0 pg MCHC 28.4 L 31.0-35.0 g/dl RDW 18.9 H 11.0-16.0 % PLT 362 160-400 X10*3/uL MPV 10.1 9.4-12.3 fL Neut Pct Auto 75.0 H 45-73 % ImGran Pct Auto 0.8 H 0.0-0.4 % Lymp Pct Auto 14.9 L 20-40 % Navajo Pct Auto 7.1 2-11 % Eos Pct Auto 1.8 0-4 % Baso Pct Auto 0.4 0-2 % NRBC Pct Auto 0.1 0.0-0.2 /100WBC ANC Neut Abs # 10.6 H 2.0-8.3 x10*3/uL ImGran Abs Auto 0.11 H 0.00-0.03 X10*3/uL Lymph Abs Auto 2.1 1.2-4.9 X10*3/uL Navajo Abs Auto 1.0 0.1-1.2 X10*3/uL Eos Abs Auto 0.3 0.0-0.4 X10*3/uL Baso Abs Auto 0.1 0.0-0.2 X10*3/uL NRBC Abs Auto 0.020 H 0.0-0.012 X10*3/uL Assessment & Plan Assessment & Plan (1) Morbid obesity with BMI of 45.0-49.9, adult: Code(s): E66.01 - Morbid (severe) obesity due to excess calories; Z68.42 - Body mass index [BMI] 45.0-49.9, adult (2) Fibroids: Code(s): D21.9 - Benign neoplasm of connective and other soft tissue, unspecified (3) Premenopausal menorrhagia: Code(s): N92.4 - Excessive bleeding in the premenopausal period (4) Uncontrolled type 2 diabetes mellitus with hyperglycemia: Code(s): E11.65 - Type 2 diabetes mellitus with hyperglycemia Plan Chart reviewed patient was here for a discussion about menorrhagia in August and entire plan was made for proceeding with plans to evaluate with an ultrasound and endometrial biopsy. The patient says she lost insurance and was not able to come and so that appointment and plan did not occur her. She now has insurance again and wants to restart now she says her periods have been getting heavier and heavier they are coming extremely regularly and they are very heavy from about day 2-3 for about 3 days in total they are heavy enough for about 6 days and then they continue on with a little bit of a pink discharge for up to 14 days total every month she is feeling very very tired and also agrees that she thinks she looks pale she says her hemoglobin was checked in November and it was 11. She says her blood pressure was in fact a little bit low at her last visit and her blood sugars are well controlled at this time. She does remember previous discussions with both myself and Dr. Thomas about evaluation in options she did have an endometrial biopsy in the past and found it extremely uncomfortable. She is sexually active but has not had sex in about a month. She also had been considering and wondering about just taking everything out. Discussed that her needs would be best served by making sure that there there is no cancerous or precancerous uterine growths. And she would need a pelvic ultrasound but also an endometrial biopsy she is open to doing it today if we can switch rooms. We will get a test and proceed with an endometrial biopsy and plan for an up ultrasound and possible Mirena at a future visit, With her menses. I am also ordering a CBC and TSH of note her hemoglobin A1c was just checked within the last few days and it is elevated but has come down from what it was before. Her CBC in November was 9 point something. I would not be surprised if it is lower today as the patient does appear pale. Endometrial biopsy was somewhat challenging because of patient's adipose and habitus the cervix kept slipping from view patient could only tolerate 1 pass of the endometrial biopsy sampling pipelle it did appear to reveal a sample. We will see her in 1 week to review the results the ultrasound may not be done by then but we she will see and we will plan on a Mirena with her next menses unless there is a problem. Orders: Orders Thyroid Stimulating Hormone Today D21.9 - Benign neoplasm of connective and other soft tissue, unspecified, E11.65 - Type 2 diabetes mellitus with hyperglycemia, E66.01 - Morbid (severe) obesity due to excess calories, N92.4 - Excessive bleeding in the premenopausal period, Z68.42 - Body mass index [BMI] 45.0-49.9, adult Complete Blood Count no Diff Today D21.9 - Benign neoplasm of connective and other soft tissue, unspecified, E11.65 - Type 2 diabetes mellitus with hyperglycemia, E66.01 - Morbid (severe) obesity due to excess calories, N92.4 - Excessive bleeding in the premenopausal period, Z68.42 - Body mass index [BMI] 45.0-49.9, adult AMB HCG Urine Test Today Z32.02 - Encounter for test, result negative US pelvic and transvaginal Today D21.9 - Benign neoplasm of connective and other soft tissue, unspecified, E66.01 - Morbid (severe) obesity due to excess calories, N92.4 - Excessive bleeding in the premenopausal period, Z68.42 - Body mass index [BMI] 45.0-49.9, adult AMB Endometrial Biopsy Today D21.9 - Benign neoplasm of connective and other soft tissue, unspecified, E11.65 - Type 2 diabetes mellitus with hyperglycemia, E66.01 - Morbid (severe) obesity due to excess calories, N92.4 - Excessive bleeding in the premenopausal period, Z68.42 - Body mass index [BMI] 45.0-49.9, adult Surgical Today N92.0 - Excessive and frequent menstruation with regular cycle Coding Level of Care Code Est Pt Level 4 (76094) Diagnoses Morbid obesity with BMI of 45.0-49.9, adult E66.01; Z68.42 Fibroids D21.9 Premenopausal menorrhagia N92.4 Uncontrolled type 2 diabetes mellitus with hyperglycemia E11.65 CPT Codes Endometrial Biopsy - CPT: 64053-Xnrnupurvrg Biopsy ([id number])
== END 2023-04-09 12:29 | disposition home or self-care (01) ==
LOC: HO.HWSM 10:04
PROVIDERS: PCP Internal Medicine; Visit Provider Advanced Practice Midwife
DX: N92.4 Excessive bleeding in the premenopausal period (principal); D25.9 Leiomyoma of uterus, unspecified; E66.01 Morbid (severe) obesity due to excess calories; Z68.42 Body mass index [BMI] 45.0-49.9, adult; E11.65 Type 2 diabetes mellitus with hyperglycemia
CPT/HCPCS: 58100; 99214

== ENCOUNTER 2023-04-16 10:17 | Outpatient (AMB) | payer OTHER, SELFPAY ==
[2023-04-16 10:26] VITALS: BP 120/74; BMI 48.4
--- NOTE | 2023-04-16 10:26 | A.OFFVIS_ITS ---
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 Kindergarten Aide Required: Yes Kindergarten Aide Language: Filipino Information Interpreted: non-clinical & clinical Certified Detention Deputy: Certified Detention Deputy Present (Aidyn) Allergies horse dander [HORSE DANDER] Allergy (Intermediate, Verified 04/16/23 10:27) Rash mold [MOLD] Allergy (Intermediate, Verified 04/16/23 10:27) rash pollen extracts [POLLEN] Allergy (Intermediate, Verified 04/16/23 10:27) Rash trazodone Adverse Reaction (Intermediate, Verified 04/16/23 10:27) dry mouth, sleepwalking GRASS Allergy (Intermediate, Uncoded 04/16/23 10:27) Rash Medication List - Last Reconciled 04/16/23 by Cari Silvestre CNM albuterol sulfate 90 mcg/actuation (Ventolin HFA) 2 puffs inhalation Q6H PRN blood sugar diagnostic (ReliOn Prime Test Strips) As directed blood-glucose meter (ReliOn All-In-One Meter kit) As directed bupropion HCl 150 mg PO QAM 90 days cetirizine (Zyrtec) 10 mg PO DAILY 90 days cholecalciferol (vitamin D3) 25 mcg PO DAILY 90 days duloxetine 60 mg PO DAILY empagliflozin (Jardiance) 25 mg PO DAILY 90 days estazolam 2 mg PO BEDTIME fluticasone propionate 50 mcg/actuation (Flonase Allergy Relief) 1 spray intranasal DAILY lancets (FreeStyle Lancets) Use 1 lancet once a day lancets As directed lisinopril 5 mg PO DAILY 90 days metformin 1,000 mg PO BID 90 days vitamin A acetate 10,000 units sublingual DAILY Is last menstrual period known: Yes Last menstrual period: 04/05/23 Post menopausal: No Patient : No HPI 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 And follow-up on her endometrial biopsy see previous visit for full discussion about plans that were essentially resurrected from a previous discussion and plan made earlier in the year. Patient has been having regular periods however they are extremely heavy and she bleeds very heavy. She has been anemic in recent past with the bleeding. She did not go yet for the blood work that I ordered and her ultrasound is scheduled for next week on the and a follow-up visit is scheduled for mid April to review that however she and I have also discussed that if the ultrasound is okay will plan on placing a Mirena IU S in efforts to help her abnormal bleeding heavy bleeding pattern. 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 She also has her mammogram scheduled for May and she has her next visit with her primary care provider for following up on her diabetes etc. in June. She says her diabetes is better controlled these days and she walks for exercise. [facility] Medical History Uncontrolled type 2 diabetes mellitus with hyperglycemia Cholelithiasis Asthma RASTA on CPAP Morbid obesity Exposure to COVID-19 virus Diabetes mellitus Dysuria RASTA on CPAP Liver lesion Iron deficiency anemia Diverticulitis Impaired glucose tolerance GERD (gastroesophageal reflux disease) Insomnia Paresthesia Morbid obesity with BMI of 50.0-59.9, adult Arthralgia Edema Depression Active asthma Super obese Eczema Migraines Iron deficiency anemia RASTA (obstructive sleep apnea) Fibromyalgia Surgical History History of tonsillectomy History of tubal ligation History of appendectomy Family History Father Diabetes Mother Diabetes Hypertension Maternal Grandmother Breast cancer Maternal Grandfather Prostate cancer Social History Household Members: Children Housing: Apartment Alcohol intake: former Patient Tobacco Use Status: Never used Tobacco e-Cigarette/Vaping Use: Never Used Second Hand Smoke Exposure: No Patient : No service: No Current occupational status: employed Current occupational exposures/hazards: No Cognitive needs: No Hearing needs: No Vision needs: No Female Reproductive History Menstrual Age of Menarche: 10 Duration of menses: >10 days Date of last menstrual period: 04/05/23 control method: other (tubal ligation) Total pregnancies: 2 Full term: 2 Number of Living Children: 2 Date of last pap smear: 08/18/20 (negative) Date of Mammogram: 07/17/22 Physical Exam Vital Signs: Last Vital Signs BP 120/74 04/16/23 10:26 BMI result Body Mass Index 48.4 Const Other: Morbid obesity noted. Pelvic was exam done at last visit with endometrial biopsy General: healthy appearing, comfortable, no acute distress, well developed and alert Nutritional Appearance: average body habitus and obese Orientation/consciousness: patient oriented x3 Limitations: no limitations HEENT Head: Yes normocephalic Neck Neck: Yes normal visual inspection Chest Chest palpation & inspection: normal inspection of the chest Breast/axilla inspection: normal inspection of the breasts and normal inspection of the axillae Breast/axilla palpation: normal palpation of the breasts and normal palpation of the axillae Resp Effort & Inspection: normal respiratory effort Neuro General: patient oriented x3 Results Reviewed Results Reviewed: of 2 [email or web address] [email or web address]=[email or web address],-13,807 Surgical Pathology [id number] Name: Miryam Salazar Age/Sex: 42/F Attending: Cari Silvestre CNM : 1980 Submitted by: Cari Silvestre CNM Copies to: Maribell West MD MR #: [id number] Status: DEP REF Collected: 04/09/23 Location: [facility] [place] Received: 04/10/23 Diagnosis Endometrium, biopsy: Predominantly blood with scant benign endometrium with extensive breakdown (lytic endometrium); no atypia or carcinoma seen. Comment: The endometrium is scant and may not be completely sales representative education courses. Clinical History Menorrhagia Microscopic Description Microscopic sections reviewed. Material Received EMB Gross Description Received in formalin labeled ?EMB? is a 1.5 x 1.2 x 0.4 cm aggregate of multiple tubular cast fragments of blood and tissue. The specimen is submitted in toto in a single cassette labeled A. CEDS Copies To Cari Silvestre CNM [address] [place] [address] [address] [place] [address] Maribell West MD [address] [place] [address] [address] [place] [address] NOTE: Unless otherwise stated, all tissue is formalin-fixed and paraffin- embedded. Some or all of the immunohistochemical tests reported herein may have been developed and their performance characteristics determined by [facility]. They have not been cleared or approved by the U.S. Food and Drug Administration (FDA). However, the FDA has determined that such clearance or approval is not necessary. This laboratory is certified under the Clinical Laboratory Improvement Amendments of 1988 (CLIA) as qualified to perform high complexity clinical laboratory testing. Patient: Miryam Salazar Age/Sex: 42/F MR#: [id number] Page 1 of 2 Assessment & Plan Assessment & Plan (1) Morbid obesity with BMI of 45.0-49.9, adult: Code(s): E66.01 - Morbid (severe) obesity due to excess calories; Z68.42 - Body mass index [BMI] 45.0-49.9, adult (2) Essential hypertension: Code(s): I10 - Essential (primary) hypertension (3) Fibroids: Code(s): D21.9 - Benign neoplasm of connective and other soft tissue, unspecified (4) Encounter for gynecological examination: Code(s): Z01.419 - Encounter for gynecological examination (general) (routine) without abnormal findings (5) Premenopausal menorrhagia: Code(s): N92.4 - Excessive bleeding in the premenopausal period (6) Uncontrolled type 2 diabetes mellitus with hyperglycemia: Code(s): E11.65 - Type 2 diabetes mellitus with hyperglycemia Plan 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 And follow-up on her endometrial biopsy see previous visit for full discussion about plans that were essentially resurrected from a previous discussion and plan made earlier in the year. Patient has been having regular periods however they are extremely heavy and she bleeds very heavy. She has been anemic in recent past with the bleeding. She did not go yet for the blood work that I ordered and her ultrasound is scheduled for next week on the and a follow-up visit is scheduled for mid April to review that however she and I have also discussed that if the ultrasound is okay will plan on placing a Mirena IU S in efforts to help her abnormal bleeding heavy bleeding pattern. 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 She also has her mammogram scheduled for May and she has her next visit with her primary care provider for following up on her diabetes etc. in June. She says her diabetes is better controlled these days and she walks for exercise. I reviewed her endometrial biopsy findings with her and while it has limitations which are stated in the report all efforts were made to do a complete sampling as much as possible during the endometrial biopsy procedure no atypia or cancer was found. On the basis of this if everything is okay with the ultrasound she and I are going to proceed with the plan to try a Mirena IU S to see if it will help with her bleeding pattern she is going to call on the 1st day of her period which she expects in the - week of April. And will we will try to arrange a day to come in for her Mirena insertion. At that visit also we can review the ultrasound which will be done next week and then cancel the other appointment in the future if this plan works that that will be great if it does not help her bleeding pattern then she can investigate options further with Dr. Thomas after that. Patient is in agreement with this plan breast exam was within normal limits today. Coding Level of Care Code Est Pt Prev Care 40-64y(30131) Diagnoses Morbid obesity with BMI of 45.0-49.9, adult E66.01; Z68.42 Essential hypertension I10 Fibroids D21.9 Encounter for gynecological examination Z01.419 Premenopausal menorrhagia N92.4 Uncontrolled type 2 diabetes mellitus with hyperglycemia E11.65
== END 2023-04-16 11:07 | disposition home or self-care (01) ==
LOC: HO.HWS 10:17
PROVIDERS: PCP Internal Medicine; Visit Provider Advanced Practice Midwife
DX: Z01.419 Encounter for gynecological examination (general) (routine) without abnormal findings (principal); D25.9 Leiomyoma of uterus, unspecified; E66.01 Morbid (severe) obesity due to excess calories; Z68.42 Body mass index [BMI] 45.0-49.9, adult; I10 Essential (primary) hypertension
CPT/HCPCS: 99396

== ENCOUNTER → 2023-04-16 10:17 | Outpatient (BNVA) | payer OTHER, SELFPAY | PROVIDERS: PCP Internal Medicine; Visit Provider Advanced Practice Midwife | DX: Z01.419 Encounter for gynecological examination (general) (routine) without abnormal findings (principal); N92.4 Excessive bleeding in the premenopausal period; D21.9 Benign neoplasm of connective and other soft tissue, unspecified; E11.65 Type 2 diabetes mellitus with hyperglycemia; I10 Essential (primary) hypertension; E66.01 Morbid (severe) obesity due to excess calories; Z68.42 Body mass index [BMI] 45.0-49.9, adult | CPT/HCPCS: 99396 ==

== ENCOUNTER 2023-04-24 12:34 | Outpatient (REF) | payer OTHER, SELFPAY ==
--- NOTE | ~2023-04-24 | US_ITS ---
EXAMINATION: US PELVIS COMPLETE CLINICAL INFORMATION: Fibroids COMPARISON: 11/30/2020 pelvic ultrasound TECHNIQUE: Transabdominal and transvaginal imaging was performed. FINDINGS: The uterus is of normal size with multiple myomas which appear overall increased in size and number from prior measuring 9.9 x 6.5 x 9.4 cm. This is retroflexed in position. A regular homogeneous endometrium is identified measuring 1.5 cm. Nabothian cysts in the cervix. A 2.8 cm subserosal myoma in the right body of the uterus increased from prior previously 2.4 cm, a 3.8 cm transmural myoma with a less than 50% submucosal component increased from prior, previously 1.7 cm with a new submucosal right body myoma measuring 1.7 cm and a new 4 cm transmural myoma in the left fundus. Both ovaries are of normal size and echogenicity. The right measures 2.2 x 1.6 x 1.6 cm for a volume of 2.9 mL. The left measures 2.2 x 1.6 x 2.0 cm for a volume of 2.7 mL. There is no pelvic free fluid. US/US pelvic and transvaginal IMPRESSION: 1. Myomatous uterus with interval increase in size and number of myomas, as described above. 2. Normal sonographic appearance of the ovaries.
== END 2023-04-24 12:35 | disposition home or self-care (01) ==
LOC: HO.US 12:34
PROVIDERS: PCP Internal Medicine; Visit Provider Advanced Practice Midwife
DX: E66.01 Morbid (severe) obesity due to excess calories (principal); Z68.42 Body mass index [BMI] 45.0-49.9, adult; D21.9 Benign neoplasm of connective and other soft tissue, unspecified
CPT/HCPCS: 76830; 76856

== ENCOUNTER → 2023-05-03 09:05 | Outpatient (BNVA) | payer OTHER, SELFPAY | PROVIDERS: PCP Internal Medicine; Visit Provider Advanced Practice Midwife ==

== ENCOUNTER 2023-05-31 07:51 | Outpatient (REF) | payer OTHER, SELFPAY ==
[2023-05-31 08:52] LABS: Hematocrit 28.7 % (37.0-47.0); Hemoglobin 7.6 g/dl (12.0-16.0); Mean Corpuscular HGB Conc 26.5 g/dl (31.0-35.0); Mean Corpuscular Hemoglobin 18.2 pg (27.0-33.0); Mean Corpuscular Volume 68.7 fL (80.0-98.0); Mean Platelet Volume 9.6 fL (9.4-12.3); NRBC Pct Auto 0.2 /100WBC (0.0-0.2); Platelet Count 433 X10*3/uL (160-400); Red Blood Count 4.18 X10*6/uL (4.20-5.50); Red Cell Distribution Width 19.7 % (11.0-16.0); White Blood Count 11.8 X10*3/uL (4.8-10.8)
[2023-05-31 09:49] LABS: Thyroid Stimulating Hormone 1.05 uIU/mL (0.32-4.0)
== END 2023-05-31 07:52 | disposition home or self-care (01) ==
LOC: HO.LAB 07:51
PROVIDERS: PCP Internal Medicine; Visit Provider Advanced Practice Midwife
DX: E66.01 Morbid (severe) obesity due to excess calories (principal); D21.9 Benign neoplasm of connective and other soft tissue, unspecified; N92.4 Excessive bleeding in the premenopausal period; E11.65 Type 2 diabetes mellitus with hyperglycemia; Z68.42 Body mass index [BMI] 45.0-49.9, adult
CPT/HCPCS: 36415; 84443; 85027

== ENCOUNTER 2023-06-07 09:49 | Outpatient (REF) | payer OTHER, SELFPAY | END 2023-06-07 09:50 | disposition home or self-care (01) | LOC: HO.MDS 09:49 | PROVIDERS: Visit Provider Internal Medicine | DX: D50.8 Other iron deficiency anemias (principal) | CPT/HCPCS: 96365; J1756 ==

== ENCOUNTER 2023-06-11 09:26 | Outpatient (REF) | payer OTHER, SELFPAY | END 2023-06-11 09:27 | disposition home or self-care (01) | LOC: HO.MDS 09:26 | PROVIDERS: Visit Provider Internal Medicine | DX: D50.8 Other iron deficiency anemias (principal) | CPT/HCPCS: 96365; J1756 ==

== ENCOUNTER 2023-06-13 09:26 | Outpatient (REF) | payer OTHER, SELFPAY | END 2023-06-13 09:27 | disposition home or self-care (01) | LOC: HO.MDS 09:26 | PROVIDERS: Visit Provider Internal Medicine | DX: D50.8 Other iron deficiency anemias (principal) | CPT/HCPCS: 96365; J1756 ==

== ENCOUNTER 2023-06-25 11:13 | Outpatient (REF) | payer OTHER, SELFPAY | END 2023-06-25 11:14 | disposition home or self-care (01) | LOC: HO.MDS 11:13 | PROVIDERS: Visit Provider Internal Medicine | DX: D50.8 Other iron deficiency anemias (principal) | CPT/HCPCS: 96365; 96375; J1720; J1756 ==

== ENCOUNTER 2023-07-01 09:30 | Outpatient (REF) | payer OTHER, SELFPAY | END 2023-07-01 09:31 | disposition home or self-care (01) | LOC: HO.MDS 09:30 | PROVIDERS: Visit Provider Internal Medicine | DX: D50.8 Other iron deficiency anemias (principal) | CPT/HCPCS: 96365; 96375; J1200; J1720; J1756 ==

== ENCOUNTER 2023-07-04 09:39 | Outpatient (REF) | payer OTHER, SELFPAY | END 2023-07-04 09:40 | disposition home or self-care (01) | LOC: HO.MDS 09:39 | PROVIDERS: PCP Internal Medicine; Visit Provider Internal Medicine | DX: D50.8 Other iron deficiency anemias (principal) | CPT/HCPCS: 96365; 96375; J1720; J1756 ==

== ENCOUNTER 2023-07-25 08:18 | Outpatient (AMB) | payer OTHER, SELFPAY ==
[2023-07-25 08:27] VITALS: BP 126/80; BMI 46.6
--- NOTE | 2023-07-25 08:27 | MHC.PC.OV ---
Vital Signs 07/25/23 08:27 Height 5 ft 3 in Weight 263 lb BMI 46.6 BP 126/80 Blood Pressure Location Lt brachial Position Sitting Intake Visit Reasons: Annual Exam Intake Note: Patient here for an annual physical exam [employer] Required: No Accompanied by: Self / Same As Patient Allergies horse dander [HORSE DANDER] Allergy (Intermediate, Verified 07/25/23 08:40) Rash mold [MOLD] Allergy (Intermediate, Verified 07/25/23 08:40) rash pollen extracts [POLLEN] Allergy (Intermediate, Verified 07/25/23 08:40) Rash trazodone Adverse Reaction (Intermediate, Verified 07/25/23 08:40) dry mouth, sleepwalking GRASS Allergy (Intermediate, Uncoded 07/25/23 08:40) Rash Medication List - Last Reconciled 07/25/23 by Maribell Davalos MD albuterol sulfate 90 mcg/actuation (Ventolin HFA) 2 puffs inhalation Q6H PRN blood sugar diagnostic (ReliOn Prime Test Strips) As directed blood-glucose meter (ReliOn All-In-One Meter kit) As directed bupropion HCl 150 mg PO QAM 90 days cetirizine (Zyrtec) 10 mg PO DAILY 90 days cholecalciferol (vitamin D3) 25 mcg PO DAILY 90 days duloxetine 60 mg PO DAILY empagliflozin (Jardiance) 25 mg PO DAILY 90 days estazolam 2 mg PO BEDTIME fluticasone propionate 50 mcg/actuation (Flonase Allergy Relief) 1 spray intranasal DAILY lancets (FreeStyle Lancets) Use 1 lancet once a day lancets As directed lisinopril 5 mg PO DAILY 90 days metformin 1,000 mg PO BID 90 days vitamin A acetate 10,000 units sublingual DAILY Tobacco use date assessed: 04/02/23 Dental Screening Dental Screen Date: 07/25/23 Did you have a dental visit in the last 12 months?: Yes Did you have a dental problem in the last 6 months where you did not have access to dental care?: No Was dental information given to patient?: Patient has dentist HPI HPI Comments History of Present Illness Details This is a 42-year-old female with diabetes mellitus type 2, morbid obesity and mild recurrent major depression that comes for her physical exam. A1c within goal. She is morbidly obese with a BMI of 46.6 and declines weight loss surgery. Depression stable with medications and this is follow by Psychiatry. Last Pap smear was 2020. Last mammogram was June 2022. No chest pain or shortness of breath. Compliant with medications. Last diabetic eye exam was 2022. [facility] Medical History (Updated 07/25/23 @ 08:51 by Maribell Davalos MD) Uncontrolled type 2 diabetes mellitus with hyperglycemia Cholelithiasis Asthma RASTA on CPAP Morbid obesity Exposure to COVID-19 virus Diabetes mellitus Dysuria RASTA on CPAP Liver lesion Iron deficiency anemia Diverticulitis Impaired glucose tolerance GERD (gastroesophageal reflux disease) Insomnia Paresthesia Morbid obesity with BMI of 50.0-59.9, adult Arthralgia Edema Depression Active asthma Super obese Eczema Migraines Iron deficiency anemia RASTA (obstructive sleep apnea) Fibromyalgia Surgical History History of tonsillectomy History of tubal ligation History of appendectomy Family History (Updated 07/25/23 @ 08:42 by Maribell Davalos MD) Father Diabetes Alzheimer disease Mother Diabetes Hypertension Maternal Grandmother Breast cancer Maternal Grandfather Prostate cancer Social History Household Members: Children Housing: Apartment Alcohol intake: former Patient Tobacco Use Status: Never used Tobacco e-Cigarette/Vaping Use: Never Used Second Hand Smoke Exposure: No service: No Current occupational status: employed Current occupational exposures/hazards: No Cognitive needs: No Hearing needs: No Vision needs: No Female Reproductive History Menstrual Age of Menarche: 10 Questionnaire Thrive Questionnaire Date Thrive assessed: 07/11/22 GENEVIEVE-7 AMB Questionnaire GENEVIEVE-7 Date GENEVIEVE - 7 assessed: 12/11/22 Source: Developed by Drs. Dhaval Pacheco, Shireen Pulido, Thor Rodriguez and colleagues, with an educational shirlene from [employer]. Review of Systems Const All systems reviewed & are unremarkable except as noted in HPI and below Eyes Reports no additional complaints, Denies change in vision and Denies other visual disturbances Card Denies chest pain at rest, Denies chest pain with activity, Denies edema, Denies irregular heart rhythm, Denies claudication, Denies dyspnea, Denies dyspnea on exertion, Denies orthopnea, Denies paroxysmal nocturnal dyspnea and Denies slow heart rate Resp Denies cough, Denies dyspnea and Denies dyspnea on exertion GI Denies abdominal pain, Denies change in bowel habits, Denies excessive flatus, Denies nausea and Denies vomiting Denies urinary incontinence, Denies urinary hesitancy and Denies urinary urgency Musc Denies abnormal gait, Denies atrophy, Denies deformity and Denies limited range of motion Skin/Breast Denies bleeding lesions, Denies changing lesions and Denies rash Neuro Denies abnormal gait, Denies behavioral changes, Denies confusion and Denies lack of coordination Psych Denies behavioral changes and Denies confusion Physical exam (Primary Care) Vital Signs: Last Vital Signs BP 126/80 07/25/23 08:27 BMI result Body Mass Index 46.6 Tobacco/Smoking Status: Tobacco use Status Tobacco use date assessed 04/02/23 04/02/23 10:26 Patient Tobacco Use Status Never used Tobacco 04/02/23 10:26 e-Cigarette/Vaping Use Never Used 04/02/23 10:26 Thrive Assessment: Date of Thrive Assessment Date Thrive assessed 07/11/22 04/02/23 10:26 Const General: No confusion Orientation/consciousness: patient oriented x3 and No confusion HENMT Head: Yes normal to inspection, Yes normocephalic and Yes atraumatic Ears: external ears normal Eyes General: appearance normal, both eyes and all related structures Eyelids: Yes eyelids normal Conjunctivae: conjunctivae normal Neck Neck: Yes normal visual inspection and Yes supple Resp Effort & Inspection: normal respiratory effort Auscultation: clear to auscultation bilaterally Cardio Jugular venous distension: no JVD Rate: regular rate Rhythm: regular rhythm Heart sounds: S1 normal heart sound present and S2 normal heart sound present GI Inspection: Yes normal to inspection Palpation (GI): Soft to palpation and nontender Auscultation: normal bowel sounds Skin General skin exam: no rashes or lesions noted Neuro General: patient oriented x3, no focal motor deficits and No confusion Extrem General: Yes full ROM Psych Appearance: grossly normal Office Procedures Flu Questionnaire Does the patient have a severe egg allergy?: No Does the patient have severe life threatening allergies?: No Does the patient have a fever or illness today?: No Has the patient ever had Guillain-[place] Syndrome?: No Has the patient ever had any past reaction to a flu shot?: No Results AMB Hemoglobin A1c AMB Hemoglobin A1c 6.2 % Last Edit by ANAND Knapp on 07/25/23 08:38 Immunizations flu vacc [id number] 6mos up(PF) 60 mcg(15 mcgx4)/0.5 mL IM syringe Performing Provider: Maribell Davalos MD [facility] Administered by: ANAND Knapp on 07/25/23 08:36 Dose Route Admin Location Dispensed Lot Number Expiration Date NDC Viscose Cellar Charge Hand 0.5 mL IM Left Deltoid 0.5 mL [id number] 01/26/24 [id number] [employer] VIS Given Date VIS Provided VIS Publication Date 07/25/23 Single Vaccine 21 Eligibility Eligibility Date Funding Source Not [facility] Eligible 07/25/23 Private Assessment and Plan Assessment & Plan (1) Physical exam: Code(s): Z00.00 - Encounter for general adult medical examination without abnormal findings Plan: Repeat in a year. (2) Morbid obesity with BMI of 45.0-49.9, adult: Code(s): E66.01 - Morbid (severe) obesity due to excess calories; Z68.42 - Body mass index [BMI] 45.0-49.9, adult Plan: Start diet and exercise. BMI goal is less than 30. 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 A1c goal is equal or less than 7%. Orders: Orders Influenza [id number] Immunization Today Z23 - Encounter for immunization Lipid Panel Today E78.5 - Hyperlipidemia, unspecified Microalbumin, Random (w Creat) Today E11.9 - Type 2 diabetes mellitus without complications Vitamin D 25-OH Total Today E55.9 - Vitamin D deficiency, unspecified Comprehensive [place]. Panel Fast Today I10 - Essential (primary) hypertension AMB Hemoglobin A1c Today E11.9 - Type 2 diabetes mellitus without complications Coding Level of Care Code Est Pt Prev Care 40-64y(95348) Diagnoses Physical exam Z00.00 Morbid obesity with BMI of 45.0-49.9, adult E66.01; Z68.42 Type 2 diabetes mellitus without complication, without long-term current use of insulin E11.9 Diabetes mellitus type: type 2 Diabetes mellitus chcf insulin use: without exterminator termite use Diabetes mellitus complication status: without complication Time Spent (min) 31
== END 2023-07-25 08:54 | disposition home or self-care (01) ==
PROVIDERS: Visit Provider Internal Medicine
DX: Z00.00 Encounter for general adult medical examination without abnormal findings (principal); E66.01 Morbid (severe) obesity due to excess calories; Z68.42 Body mass index [BMI] 45.0-49.9, adult; Z23 Encounter for immunization; E11.9 Type 2 diabetes mellitus without complications
CPT/HCPCS: 83036; 90471; 90686; 99396

== ENCOUNTER 2023-09-30 07:51 | Outpatient (REF) | payer OTHER, SELFPAY ==
[2023-09-30 09:27] LABS: Alanine Aminotransferase 11 U/L (0-31); Albumin Level 3.8 g/dL (3.5-5.0); Alkaline Phosphatase 124 U/L (39-117); Anion Gap 14 (12-20); Aspartate Amino Transferase 14 U/L (5-31); Bilirubin Total 0.2 mg/dL (0.0-1.0); Blood Urea Nitrogen 11 mg/dL (9-16); Carbon Dioxide 26 mmol/L (22-29); Chloride 103 mmol/L (96-108); Cholesterol 132 mg/dL (<200); Estimated Glomerular Filt Rate > 60; Glucose Fasting 147 mg/dL (60-99); HDL Cholesterol 39 mg/dL (>40); LDL Cholesterol Calculated 52 mg/dL (<100); Potassium 3.8 mmol/L (3.3-5.1); Sodium 139 mmol/L (135-145); Triglycerides 206 mg/dL (<150)
[2023-09-30 09:43] LABS: Vitamin D 25-OH Total 35.5 ng/mL (>30)
[2023-09-30 12:27] LABS: Creatinine Urine 58.57 mg/dL; Microalbumin Urine < 5.0 mg/L
== END 2023-09-30 07:52 | disposition home or self-care (01) ==
LOC: HO.LAB 07:51
PROVIDERS: PCP Internal Medicine; Visit Provider Internal Medicine
DX: E11.9 Type 2 diabetes mellitus without complications (principal); I10 Essential (primary) hypertension; E55.9 Vitamin D deficiency, unspecified; E78.5 Hyperlipidemia, unspecified
CPT/HCPCS: 36415; 80053; 80061; 82043; 82306; 82570

== ENCOUNTER 2023-12-03 09:40 | Outpatient (AMB) | payer OTHER, SELFPAY ==
[2023-12-03 09:46] VITALS: BP 132/70; BMI 48.2
--- NOTE | 2023-12-03 09:46 | A.OFFPC_ITS ---
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: No Accompanied by: Self / Same As Patient Allergies horse dander [HORSE DANDER] Allergy (Intermediate, Verified 12/03/23 10:19) Rash mold [MOLD] Allergy (Intermediate, Verified 12/03/23 10:19) rash pollen extracts [POLLEN] Allergy (Intermediate, Verified 12/03/23 10:19) Rash trazodone Adverse Reaction (Intermediate, Verified 12/03/23 10:19) dry mouth, sleepwalking GRASS Allergy (Intermediate, Uncoded 12/03/23 10:19) Rash Medication List - Last Reconciled 12/03/23 by Maribell Davalos MD albuterol sulfate 90 mcg/actuation (Ventolin HFA) 2 puffs inhalation Q6H PRN blood sugar diagnostic (ReliOn Prime Test Strips) As directed blood-glucose meter (ReliOn All-In-One Meter kit) As directed bupropion HCl XL 150 mg PO QAM 90 days cetirizine (Zyrtec) 10 mg PO DAILY 90 days cholecalciferol (vitamin D3) 25 mcg PO DAILY 90 days duloxetine 60 mg PO DAILY empagliflozin (Jardiance) 25 mg PO DAILY 90 days estazolam 2 mg PO BEDTIME fluticasone propionate 50 mcg/actuation (Flonase Allergy Relief) 1 spray intranasal DAILY lancets (FreeStyle Lancets) Use 1 lancet once a day lancets As directed lisinopril 5 mg PO DAILY 90 days metformin 1,000 mg PO BID 90 days vitamin A acetate 10,000 units sublingual DAILY Tobacco use date assessed: 12/03/23 Dental Screening Dental Screen Date: 12/03/23 Did you have a dental visit in the last 12 months?: Yes Did you have a dental problem in the last 6 months where you did not have access to dental care?: No Was dental information given to patient?: Patient has dentist HPI HPI Comments History of Present Illness Details This is a 43-year-old female with diabetes mellitus type 2, hypertens ion, mild recurrent major depression, morbid obesity and asthma that comes today for follow-up on her conditions. A1c slightly elevated and I will add Ozempic. A1c goal is equal or less than 7%. Blood pressure stable. LDL within goal. Depression well controlled with bupropion and this is follow by Psychiatry. She is morbidly obese with a BMI of 48.2 and declines weight loss surgery. Asthma has been stable with rescue inhaler as needed and follow by pulmonology. Has anemia follow by Hematology-Oncology which has markedly improved. Denies any active bleeding. [facility] Medical History (Updated 12/03/23 @ 12:24 by Maribell Davalos MD) Uncontrolled type 2 diabetes mellitus with hyperglycemia Cholelithiasis Asthma RASTA on CPAP Morbid obesity Exposure to COVID-19 virus Diabetes mellitus Dysuria RASTA on CPAP Liver lesion Iron deficiency anemia Diverticulitis Impaired glucose tolerance GERD (gastroesophageal reflux disease) Insomnia Paresthesia Morbid obesity with BMI of 50.0-59.9, adult Arthralgia Edema Depression Active asthma Super obese Eczema Migraines Iron deficiency anemia RASTA (obstructive sleep apnea) Fibromyalgia Surgical History History of tonsillectomy History of tubal ligation History of appendectomy Family History Father Diabetes Alzheimer disease Mother Diabetes Hypertension Maternal Grandmother Breast cancer Maternal Grandfather Prostate cancer Social History Household Members: Children Housing: Apartment Alcohol intake: former Patient Tobacco Use Status: Never used Tobacco e-Cigarette/Vaping Use: Never Used Second Hand Smoke Exposure: No service: No Current occupational status: employed Current occupational exposures/hazards: No Cognitive needs: No Hearing needs: No Vision needs: No Female Reproductive History Menstrual Age of Menarche: 10 Questionnaire PHQ-9 Over the last 2 weeks, how often have you been bothered by any of the following problems? 1. Little interest or pleasure in doing things: not at all 2. Feeling down, depressed, or hopeless: not at all 3. Trouble falling or staying asleep, or sleeping too much: several days 4. Feeling tired or having little energy: several days 5. Poor appetite or overeating: not at all 6. Feeling bad about yourself - or that you are a failure or have let yourself or your family down: not at all 7. Trouble concentrating on things, such as reading the newspaper or watching television: not at all 8. Moving or speaking so slowly that other people could have noticed. Or the opposite - being so fidgety or restless that you have been moving around a lot more than usual: not at all 9. Thoughts that you would be better off or of hurting yourself in some way: not at all Total score: 2 Depression Screening Interpretation: Negative Depression Screening Done: Yes [id number] - PHQ-9 Billing: Yes Source: Developed by Drs. Dhaval Pacheco, Shireen Pulido, Thor Rodriguez and colleagues, with an educational shirlene from [employer]. Thrive Questionnaire Date Thrive assessed: 12/03/23 I am a: Patient What is your living situation today?: I have a steady place to live Within the past 12 months, did the food you bought not last and you didn't have the money to get more?: Never true Within the past 12 months, did you worry whether your food would run out before you got money to buy more?: Never true Do you have trouble paying for medicines?: No Do you have trouble getting transportation to medical appointments?: No Do you have trouble paying your heating and electricity bill?: No Do you have trouble taking care of your child, family member or friend?: No Do you have trouble with day-to-day activities such as bathing, preparing meals, shopping, managing finances, etc.?: No Are you currently unemployed and looking for a job?: No Are you interested in more education?: No Please select the resources that you would like help with: None Currently or been in a relationship where the following occur: no concerns reported THRIVE Score: 0 AUDIT C Alcohol Use Questionnaire (AUDIT-C) 1. How often do you have a drink containing alcohol?: Never Total Score: 0 Score Reviewed/Action Taken: No GENEVIEVE-7 AMB Questionnaire GENEVIEVE-7 Date GENEVIEVE - 7 assessed: 12/03/23 Feeling nervous, anxious, or on edge: 0 = Not at all Not being able to stop or control worryin = Not at all Worrying too much about different things: 0 = Not at all Trouble relaxin = Not at all Being so restless that it is hard to sit still: 0 = Not at all Becoming easily annoyed or irritable: 0 = Not at all Feeling afraid as if something awful might happen: 0 = Not at all Total GENEVIEVE-7 score (0-4 normal; 5-9 mild; 10-14 moderate; 15-21 severe): 0 Source: Developed by Drs. Dhaval Pacheco, Shireen Pulido, Thor Rodriguez and colleagues, with an educational shirlene from [employer]. GENEVIEVE-7 Assessment Billing GENEVIEVE-7 Assessment Tool: GENEVIEVE-7 Assessment 04164 Review of Systems Const All systems reviewed & are unremarkable except as noted in HPI and below Eyes Reports no additional complaints, Denies change in vision and Denies other visual disturbances Card Denies chest pain at rest, Denies chest pain with activity, Denies edema, Denies irregular heart rhythm, Denies claudication, Denies dyspnea, Denies dyspnea on exertion, Denies orthopnea, Denies paroxysmal nocturnal dyspnea and Denies slow heart rate Resp Denies cough, Denies dyspnea and Denies dyspnea on exertion GI Denies abdominal pain, Denies change in bowel habits, Denies excessive flatus, Denies nausea and Denies vomiting Physical exam (Primary Care) Vital Signs: Last Vital Signs BP 132/70 12/03/23 09:46 BMI result Body Mass Index 48.2 Tobacco/Smoking Status: Tobacco use Status Tobacco use date assessed 12/03/23 12/03/23 09:54 Patient Tobacco Use Status Never used Tobacco 12/03/23 09:54 e-Cigarette/Vaping Use Never Used 12/03/23 09:54 PHQ-9: PHQ-9 Score PHQ-9: Total score 2 12/03/23 10:23 Depression Screening Interpretation: Negative Thrive Assessment: Date of Thrive Assessment Date Thrive assessed 12/03/23 12/03/23 09:54 Currently or been in a relationship where the following occur: no concerns reported Eyes Conjunctivae: conjunctivae normal Resp Effort & Inspection: normal respiratory effort Auscultation: clear to auscultation bilaterally Cardio Jugular venous distension: no JVD Rate: regular rate Rhythm: regular rhythm Heart sounds: S1 normal heart sound present and S2 normal heart sound present Extrem General: Yes full ROM Psych Appearance: grossly normal Results AMB Hemoglobin A1c AMB Hemoglobin A1c 7.2 % Last Edit by ANAND Knapp on 12/03/23 09:5 6 Results Reviewed Results Reviewed: Laboratory Last Values Hgb A1c (Clinic) 7.2 % (4.0-6.0) H 12/03/23 09:55 Assessment and Plan Assessment & Plan (1) Mild recurrent major depression: Code(s): F33.0 - Major depressive disorder, recurrent, mild Plan: Continue bupropion. Follow-up with psychiatry. (2) Diabetes mellitus without complication, without long-term current use of insulin: Code(s): E11.9 - Type 2 diabetes mellitus without complications Plan: Continue metformin and Jardiance. A1c goal is equal or less than 7%. Start Ozempic once a week. (3) Essential hypertension: Code(s): I10 - Essential (primary) hypertension Plan: Continue lisinopril. Blood pressure goal is equal or less than 130/80. (4) Morbid obesity with BMI of 45.0-49.9, adult: Code(s): E66.01 - Morbid (severe) obesity due to excess calories; Z68.42 - Body mass index [BMI] 45.0-49.9, adult Plan: Start diet and exercise. BMI goal is less than 30. (5) Asthma: Comment: She does have history of intermittent cough and some wheezing, probably due to bronchial asthma, Seems to be well controlled at present. [place] : Continue fluticasone/salmeterol 232/14 mcgm 2 puffs b.i.d. Code(s): J45.909 - Unspecified asthma, uncomplicated Plan: Use rescue inhaler as needed. Follow-up with pulmonology. Orders: Orders AMB Hemoglobin A1c Today E11.65 - Type 2 diabetes mellitus with hyperglycemia MM screening mammo BI Today Z12.31 - Encounter for screening mammogram for malignant neoplasm of breast Lipid Panel 4 Months E78.5 - Hyperlipidemia, unspecified Microalbumin, Random (w Creat) 4 Months E11.9 - Type 2 diabetes mellitus without complications Vitamin D 25-OH Total 4 Months E55.9 - Vitamin D deficiency, unspecified Comprehensive [place]. Panel Fast 4 Months I10 - Essential (primary) hypertension Medications: New semaglutide (Ozempic) for 4 weeks 0.25 mg (0.368 mL) subcut QWEEK 1.84 mL 0RF 30 days E11.65 - Type 2 diabetes mellitus with hyperglycemia Refilled fluticasone propionate 50 mcg/actuation (Flonase Allergy Relief) administer into each nostril 1 spray intranasal DAILY 9.9 mL 1RF Coding Level of Care Code Est Pt Level 4 (02761) Diagnoses Mild recurrent major depression F33.0 Diabetes mellitus without complication, without long-term current use of insulin E11.9 Essential hypertension I10 Morbid obesity with BMI of 45.0-49.9, adult E66.01; Z68.42 Asthma J45.909 Additional Codes GENEVIEVE-7 Assessment Billing - GENEVIEVE-7 Assessment Tool: GENEVIEVE-7 Assessment 46390 ([id number]) Time Spent (min) 23
== END 2023-12-03 10:29 | disposition home or self-care (01) ==
PROVIDERS: PCP Internal Medicine; Visit Provider Internal Medicine
DX: F33.0 Major depressive disorder, recurrent, mild (principal); E11.65 Type 2 diabetes mellitus with hyperglycemia; E66.01 Morbid (severe) obesity due to excess calories; Z68.42 Body mass index [BMI] 45.0-49.9, adult; J45.909 Unspecified asthma, uncomplicated
CPT/HCPCS: 83036; 99214

== ENCOUNTER 2024-01-03 07:51 | Outpatient (AMB) | payer OTHER, SELFPAY ==
--- NOTE | 2024-01-03 07:53 | A.OFFVIS_ITS ---
Vital Signs 01/03/24 07:54 Height 5 ft 3 in Weight 274 lb 0.553 oz BMI 48.5 BP 100/62 Blood Pressure Location Lt brachial Position Sitting Pulse 78 Pulse Source Pulse Oximeter Intake Visit Reasons: Type 2 DM/confirmed Intake Note: Patient present today to follow up on Type 2 Diabetes Mellitus. Last Diabetic Eye exam: May 2023 Last Podiatry Visit: Doesn't have one Random Glucose: 135 mg/dl HgA1C: 7.2% 12/03/2023 Upper Stitcher Required: No Accompanied by: Self / Same As Patient Allergies horse dander [HORSE DANDER] Allergy (Intermediate, Verified 01/03/24 08:05) Rash mold [MOLD] Allergy (Intermediate, Verified 01/03/24 08:05) rash pollen extracts [POLLEN] Allergy (Intermediate, Verified 01/03/24 08:05) Rash trazodone Adverse Reaction (Intermediate, Verified 01/03/24 08:05) dry mouth, sleepwalking GRASS Allergy (Intermediate, Uncoded 01/03/24 08:05) Rash Medication List - Last Reconciled 01/03/24 by Nicki Valera PA-C albuterol sulfate 90 mcg/actuation (Ventolin HFA) 2 puffs inhalation Q6H PRN blood sugar diagnostic (ReliOn Prime Test Strips) As directed blood-glucose meter (ReliOn All-In-One Meter kit) As directed bupropion HCl XL 150 mg PO QAM 90 days cetirizine (Zyrtec) 10 mg PO DAILY 90 days cholecalciferol (vitamin D3) 25 mcg PO DAILY 90 days duloxetine 60 mg PO DAILY empagliflozin (Jardiance) 25 mg PO DAILY 90 days estazolam 2 mg PO BEDTIME fluticasone propionate 50 mcg/actuation (Flonase Allergy Relief) 1 spray intrana letitia DAILY lancets (FreeStyle Lancets) Use 1 lancet once a day lancets As directed lisinopril 5 mg PO DAILY 90 days metformin 1,000 mg PO BID 90 days vitamin A acetate 10,000 units sublingual DAILY HPI HPI Type 2 DM/confirmed: Details: Patient is a 43-year-old female with a significant past medical history of RASTA on CPAP, depression, IgA, GERD, type 2 diabetes, hypertension, hyperlipidemia, fatty liver and morbid obesity presenting today for a follow-up regarding diabetes. She was last seen in endocrinology two years ago. Her last A1c was 7.2. She checks her blood sugars intermittently during the week and states that they seem to be around 170. She does not check them always fasting. Recently saw her PCP on 12/02 and started on Ozempic. She states her insurance does not cover that or the Mounjaro that was then ordered afterwards. In the past she was on Trulicity and did well with this medication. She states that she came off of it because her A1cs started to go down. She had no adverse effects except for a slightly suppressed appetite which she enjoyed because she lost weight. She is currently on Jardiance 25 mg, and metformin 1000 mg twice a day. She is on an ROD-inhibitor. Blood pressure today in the office is 100/62. No nephropathy. Her cholesterol is diet controlled. Last LDL was 52. She requests a referral to Podiatry today because she has an ingrown left toenail. She states that has been bothering her on and off for the last couple months. [facility] Medical History (Updated 01/03/24 @ 08:27 by Nicki Valera PA-C) Uncontrolled type 2 diabetes mellitus with hyperglycemia Cholelithiasis Asthma RASTA on CPAP Morbid obesity Exposure to COVID-19 virus Diabetes mellitus Dysuria RASTA on CPAP Liver lesion Iron deficiency anemia Diverticulitis Impaired glucose tolerance GERD (gastroesophageal reflux disease) Insomnia Paresthesia Morbid obesity with BMI of 50.0-59.9, adult Arthralgia Edema Depression Active asthma Super obese Eczema Migraines Iron deficiency anemia RASTA (obstructive sleep apnea) Fibromyalgia Surgical History History of tonsillectomy History of tubal ligation History of appendectomy Family History Father Diabetes Alzheimer disease Mother Diabetes Hypertension Maternal Grandmother Breast cancer Maternal Grandfather Prostate cancer Social History Household Members: Children Housing: Apartment Alcohol intake: former Patient Tobacco Use Status: Never used Tobacco e-Cigarette/Vaping Use: Never Used Second Hand Smoke Exposure: No service: No Current occupational status: employed Current occupational exposures/hazards: No Cognitive needs: No Hearing needs: No Vision needs: No Female Reproductive History Menstrual Age of Menarche: 10 Physical Exam Const Orientation/consciousness: patient oriented x3 HEENT Ears: hearing grossly normal bilaterally Neck Thyroid: Thyroid normal Lymphatic: no lymphadenopathy noted Resp Auscultation: clear to auscultation bilaterally Cardio Rate: regular rate Rhythm: regular rhythm Heart sounds: S1 normal heart sound present and S2 normal heart sound present Skin General skin exam: no rashes or lesions noted Neuro General: patient oriented x3, gait normal and no focal motor deficits Extrem Other: DP pulses 2+ bilaterally. Sensation to monofilament test intact. Vibratory sensation intact. Skin intact. She does have a slight ingrown toenail noted of the left great toe. No signs of infection. Results Reviewed Results Reviewed: Laboratory Tests 09/30/23 09/30/23 12/03/23 08:07 08:11 09:55 Hgb A1c (Clinic) 7.2 H Triglycerides 206 H Cholesterol 132 LDL Cholesterol, Calc 52 HDL Cholesterol 39 L 25-OH Vitamin D Total 35.5 Urine Creatinine 58.57 Urine Microalbumin < 5.0 Assessment & Plan Assessment & Plan (1) Diabetes mellitus without complication, without long-term current use of insulin: Code(s): E11.9 - Type 2 diabetes mellitus without complications Category: Medical Qualifiers: Diabetes mellitus type: type 2 Qualified Code(s): E11.9 - Type 2 diabetes mellitus without complications Plan: Will start Trulicity. She was on this in the past and tolerated it without difficulty. States that she even benefit from weight loss. Adverse reactions, risks and benefits were discussed. Continue with the metformin and Jardiance. Diabetic labs ordered to be recheck prior to her next appointment. Advised to follow-up in 3 months. Sooner if needed. (2) Ingrown toenail of left foot: Code(s): L60.0 - Ingrowing nail Category: Medical Plan: Referral to podiatry. No signs of infection. Advised to monitor for this. (3) Morbid obesity with BMI of 45.0-49.9, adult: Code(s): E66.01 - Morbid (severe) obesity due to excess calories; Z68.42 - Body mass index [BMI] 45.0-49.9, adult Category: Medical Plan: We discussed reducing carbohydrate, sugar intake and increasing activity. Unfortunately, neuro was not covered by her insurance but she did have weight loss in the past with Trulicity. Orders: Orders Hemoglobin A1c 2 Months E11.9 - Type 2 diabetes mellitus without complications, F33.0 - Major depressive disorder, recurrent, mild Comprehensive [place]. Panel Fast 2 Months E11.9 - Type 2 diabetes mellitus without complications, F33.0 - Major depressive disorder, recurrent, mild Referrals Podiatry Referral E11.9 - Type 2 diabetes mellitus without complications, L60.0 - Ingrowing nail Medications: New dulaglutide (Trulicity) 0.75 mg (0.5 mL) subcut QWEEK 2 mL 3RF Coding Level of Care Code Est Pt Level 4 (33744) Complex EM visit Add On G2211 Diagnoses Type 2 diabetes mellitus without complication, without long-term current use of insulin E11.9 Diabetes mellitus type: type 2 Ingrown toenail of left foot L60.0 Morbid obesity with BMI of 45.0-49.9, adult E66.01; Z68.42
[2024-01-03 07:54] VITALS: BP 100/62; PULSE 78; BMI 48.5
[2024-01-03 08:12] LABS: Glucose, Whole Blood 135 mg/dL (60-115)
== END 2024-01-03 08:27 | disposition home or self-care (01) ==
PROVIDERS: PCP Internal Medicine; Visit Provider Physician Assistant
DX: E11.9 Type 2 diabetes mellitus without complications (principal); L60.0 Ingrowing nail; E66.01 Morbid (severe) obesity due to excess calories; Z68.42 Body mass index [BMI] 45.0-49.9, adult
CPT/HCPCS: 99214; G2211

== ENCOUNTER → 2024-01-03 07:51 | Outpatient (BNVA) | payer OTHER, SELFPAY | PROVIDERS: PCP Internal Medicine; Visit Provider Physician Assistant | DX: E11.9 Type 2 diabetes mellitus without complications (principal); L60.0 Ingrowing nail; E66.01 Morbid (severe) obesity due to excess calories; Z68.42 Body mass index [BMI] 45.0-49.9, adult | CPT/HCPCS: 82947; 99212 ==

== ENCOUNTER 2024-03-18 08:48 | Outpatient (REF) | payer OTHER, SELFPAY ==
[2024-03-18 10:26] LABS: Estimated Average Glucose 134 mg/dL; Hemoglobin A1c % 6.3 % (<6.0)
[2024-03-18 11:38] LABS: Alanine Aminotransferase 9 U/L (0-31); Albumin Level 3.9 g/dL (3.5-5.0); Alkaline Phosphatase 112 U/L (39-117); Anion Gap 14 (12-20); Aspartate Amino Transferase 12 U/L (5-31); Bilirubin Total 0.2 mg/dL (0.0-1.0); Blood Urea Nitrogen 10 mg/dL (9-16); Calcium 9.2 mg/dL (8.4-10.2); Carbon Dioxide 24 mmol/L (22-29); Chloride 103 mmol/L (96-108); Estimated Glomerular Filt Rate > 60; Glucose Fasting 121 mg/dL (60-99); Potassium 3.9 mmol/L (3.3-5.1); Sodium 137 mmol/L (135-145); Total Protein 7.2 g/dL (6.5-8.0)
== END 2024-03-18 08:49 | disposition home or self-care (01) ==
LOC: HO.LAB 08:48
PROVIDERS: PCP Internal Medicine; Visit Provider Physician Assistant
DX: E11.9 Type 2 diabetes mellitus without complications (principal); F33.0 Major depressive disorder, recurrent, mild
CPT/HCPCS: 36415; 80053; 83036

== ENCOUNTER 2024-03-20 09:12 | Outpatient (AMB) | payer OTHER, SELFPAY ==
[2024-03-20 10:15] VITALS: BP 120/78; PULSE 80; BMI 48.0
--- NOTE | 2024-03-20 10:15 | A.OFFVIS_ITS ---
Vital Signs 03/20/24 10:15 Height 5 ft 3 in Weight 270 lb 15.17 oz BMI 48.0 BP 120/78 Blood Pressure Location Lt brachial Position Sitting Pulse 80 Pulse Source Pulse Oximeter Intake Visit Reasons: T2DM Intake Note: Patient presents today for D2MT follow up visit. Last Diabetic Eye exam: 05/2023 Last Podiatry Visit:Doesn't have one Random Glucose: 214 mg/dl HgA1c: 6.3% 03/18/24 Shrimp Trawler Captain Required: No Accompanied by: Self / Same As Patient Allergies horse dander [HORSE DANDER] Allergy (Intermediate, Verified 03/20/24 10:19) Rash mold [MOLD] Allergy (Intermediate, Verified 03/20/24 10:19) rash pollen extracts [POLLEN] Allergy (Intermediate, Verified 03/20/24 10:19) Rash trazodone Adverse Reaction (Intermediate, Verified 03/20/24 10:19) dry mouth, sleepwalking GRASS Allergy (Intermediate, Uncoded 03/20/24 10:19) Rash HPI HPI T2DM: Details: Patient is a 43-year-old female with a significant past medical history of RASTA on CPAP, depression, IgA, GERD, type 2 diabetes, hypertension, hyperlipidemia, fatty liver and morbid obesity presenting today for a follow-up regarding diabetes. Endo: A1c went from 7.2 to 6.3. She is currently on metformin 1000 mg twice a day, Jardiance 25 mg daily and Trulicity 0.75 mg weekly. This was started at our last visit she states that she is tolerating the Trulicity well. She has lost 10 lb with diet and exercise. At our last visit I did refer her to Podiatry but she states that she rescheduled her appointment. She has been busy with her children home for the summer. She is on an ROD-inhibitor. CV: Blood pressure today in the office is 120/78. [facility] Medical History (Updated 01/03/24 @ 08:27 by Nicki Valera PA-C) Uncontrolled type 2 diabetes mellitus with hyperglycemia Cholelithiasis Asthma ARSTA on CPAP Morbid obesity Exposure to COVID-19 virus Diabetes mellitus Dysuria RASTA on CPAP Liver lesion Iron deficiency anemia Diverticulitis Impaired glucose tolerance GERD (gastroesophageal reflux disease) Insomnia Paresthesia Morbid obesity with BMI of 50.0-59.9, adult Arthralgia Edema Depression Active asthma Super obese Eczema Migraines Iron deficiency anemia RASTA (obstructive sleep apnea) Fibromyalgia Surgical History History of tonsillectomy History of tubal ligation History of appendectomy Family History Father Diabetes Alzheimer disease Mother Diabetes Hypertension Maternal Grandmother Breast cancer Maternal Grandfather Prostate cancer Social History Household Members: Children Housing: Apartment Alcohol intake: former Patient Tobacco Use Status: Never used Tobacco e-Cigarette/Vaping Use: Never Used Second Hand Smoke Exposure: No service: No Current occupational status: employed Current occupational exposures/hazards: No Cognitive needs: No Hearing needs: No Vision needs: No Female Reproductive History Menstrual Age of Menarche: 10 Physical Exam Const Orientation/consciousness: patient oriented x3 Neck Neck: Yes no lymphadenopathy Thyroid: Thyroid normal Carotids: no bruits Resp Auscultation: clear to auscultation bilaterally Cardio Rate: regular rate Rhythm: regular rhythm Heart sounds: S1 normal heart sound present and S2 normal heart sound present Peripheral pulses: dorsalis pedis present Neuro General: patient oriented x3, gait normal and no focal motor deficits Extrem Other: Monofilament sensation intact bilaterally. Vibratory sensation intact bilaterally. Skin intact. General: Yes normal to inspection Results Reviewed Results Reviewed: Laboratory Tests 09/30/23 09/30/23 03/18/24 08:07 08:11 08:54 Sodium 137 Potassium 3.9 Chloride 103 Carbon Dioxide 24 Anion Gap 14 BUN 10 Creatinine 0.72 Estimated GFR > 60 Fasting Glucose 121 H Estimat Average Glucose 134 Hemoglobin A1c % 6.3 H Calcium 9.2 AST 12 ALT 9 Triglycerides 206 H Cholesterol 132 LDL Cholesterol, Calc 52 HDL Cholesterol 39 L Urine Creatinine 58.57 Urine Microalbumin < 5.0 Assessment & Plan Assessment & Plan (1) Diabetes mellitus without complication, without long-term current use of insulin: Code(s): E11.9 - Type 2 diabetes mellitus without complications Category: Medical Qualifiers: Diabetes mellitus type: type 2 Qualified Code(s): E11.9 - Type 2 diabetes mellitus without complications Plan: Continue current regimen. Labs ordered. Complete prior to next appointment. Follow up in 3 months. Sooner if needed. Patient understands and agrees with the plan. (2) Essential hypertension: Code(s): I10 - Essential (primary) hypertension Category: Medical Plan: WNL. Continue current regimen (3) Morbid obesity with BMI of 45.0-49.9, adult: Code(s): E66.01 - Morbid (severe) obesity due to excess calories; Z68.42 - Body mass index [BMI] 45.0-49.9, adult Category: Medical Plan: She has lost 10 lb in the last few months. Congratulated her on her success. Encouraged her to continue with the diet and lifestyle modifications and further weight reduction. Orders: Orders Basic Metabolic Panel 3 Months E11.9 - Type 2 diabetes mellitus without complications, E66.01 - Morbid (severe) obesity due to excess calories, I10 - Essential (primary) hypertension, Z68.42 - Body mass index [BMI] 45.0-49.9, adult Hemoglobin A1c 3 Months E11.9 - Type 2 diabetes mellitus without complications, E66.01 - Morbid (severe) obesity due to excess calories, I10 - Essential (primary) hypertension, Z68.42 - Body mass index [BMI] 45.0-49.9, adult Coding Level of Care Code Est Pt Level 4 (15382) Complex EM visit Add On G2211 Diagnoses Type 2 diabetes mellitus without complication, without long-term current use of insulin E11.9 Diabetes mellitus type: type 2 Essential hypertension I10 Morbid obesity with BMI of 45.0-49.9, adult E66.01; Z68.42
[2024-03-20 10:26] LABS: Glucose, Whole Blood 214 mg/dL (60-115)
== END 2024-03-20 10:38 | disposition home or self-care (01) ==
PROVIDERS: PCP Internal Medicine; Visit Provider Physician Assistant
DX: E11.9 Type 2 diabetes mellitus without complications (principal); I10 Essential (primary) hypertension; E66.01 Morbid (severe) obesity due to excess calories; Z68.42 Body mass index [BMI] 45.0-49.9, adult
CPT/HCPCS: 99214; G2211

== ENCOUNTER → 2024-03-20 09:12 | Outpatient (BNVA) | payer OTHER, SELFPAY | PROVIDERS: PCP Internal Medicine; Visit Provider Physician Assistant | DX: E11.9 Type 2 diabetes mellitus without complications (principal); I10 Essential (primary) hypertension; E66.01 Morbid (severe) obesity due to excess calories; Z68.42 Body mass index [BMI] 45.0-49.9, adult | CPT/HCPCS: 82947; 99212 ==

== ENCOUNTER 2024-04-10 03:46 | Emergency (ER) | payer OTHER, SELFPAY ==
--- NOTE | 2024-04-10 | ECG_ITS ---
Test Reason : ABD PAIN Blood Pressure : / mmHG Vent. Rate : 082 BPM Atrial Rate : 082 BPM P-R Int : 138 ms QRS Dur : 082 ms QT Int : 376 ms P-R-T Axes : 065 029 018 degrees QTc Int : 439 ms Normal sinus rhythm Normal ECG When compared with ECG of 28-JUN-2022 09:13, No significant change was found Referred By: Generic ED Physician Electronically Signed By:JOSSELYN FORTUNE
--- NOTE | ~2024-04-10 | CT_ITS ---
EXAMINATION: CT ABDOMEN AND PELVIS WITHOUT CONTRAST CLINICAL INFORMATION: Abdominal distention. COMPARISON: March 13, 2021 TECHNIQUE: Multidetector volumetric imaging was performed from the superior aspect of the liver through the pubic symphysis. Sagittal and coronal reformatted images were obtained on the technologist's workstation. This CT examination was performed using dose optimization techniques as appropriate, variously including the following: *Automated exposure control *Adjustment of mA and/or kV according to patient size (this includes techniques or standardized protocols for targeted exams where dose is matched to indication/reason for exam; i.e. extremities or head) *Use of iterative reconstruction technique DLP: 915 mGy-cm FINDINGS: LUNG BASES: The visualized lung bases are unremarkable. LIVER, GALLBLADDER, AND BILIARY TREE: The noncontrast liver is enlarged and decreased in attenuation. No biliary ductal dilatation is present. The gallbladder is unremarkable with no evidence of radiopaque gallstones, gallbladder wall thickening, or obvious pericholecystic inflammatory changes. PANCREAS: Unremarkable. SPLEEN: Unremarkable. ADRENAL GLANDS: 1.4 cm left adrenal myelolipoma. No follow-up imaging is recommended. KIDNEYS AND URETERS: The kidneys are symmetric in size. No hydronephrosis, hydroureter, or calculi seen. No perinephric stranding. BLADDER: Unremarkable. GASTROINTESTINAL TRACT: Small and large bowel loops are of normal caliber. No small bowel obstruction. ABDOMINAL WALL: Small fat-containing umbilical hernia. LYMPH NODES: No bulky lymphadenopathy. VASCULAR: Normal caliber abdominal aorta. PELVIC VISCERA: Fibroid uterus. Intrauterine device appears possibly low lying. OSSEOUS STRUCTURES: Degenerative disc disease at L5-S1. CT/CT abdomen pelvis wo IV con IMPRESSION: Possible low lying or malpositioned intrauterine device. Enlarged fibroid uterus. Consider pelvic ultrasound. Hepatic steatosis and hepatomegaly. Electronically signed by: Sb Frias MD 04/10/2024 11:11 AM EDT
[2024-04-10 03:58] VITALS: BP 160/80; PULSE 84; O2SAT 98
[2024-04-10 04:00] VITALS: BMI 47.8
[2024-04-10 04:02] VITALS: BP 103/53; PULSE 81; RESP 16; TEMP 36.6; O2SAT 97
[2024-04-10 04:42] LABS: Hematocrit 30.6 % (37.0-47.0); Mean Corpuscular HGB Conc 29.4 g/dl (31.0-35.0); Mean Corpuscular Hemoglobin 22.4 pg (27.0-33.0); Mean Corpuscular Volume 76.1 fL (80.0-98.0); Platelet Count 380 X10*3/uL (160-400); Red Blood Count 4.02 X10*6/uL (4.20-5.50); Red Cell Distribution Width 18.9 % (11.0-16.0); White Blood Count 13.1 X10*3/uL (4.8-10.8)
[2024-04-10 04:55] LABS: IDNOW Serial# 08D9AD1C; IDNOW Serial# 152EDE1D; Influenza A Negative (Negative); Influenza B2 Negative (Negative)
[2024-04-10 04:56] LABS: COVID-19 Test Negative (Negative)
[2024-04-10 05:03] LABS: Alanine Aminotransferase 11 U/L (0-31); Albumin Level 3.8 g/dL (3.5-5.0); Alkaline Phosphatase 104 U/L (39-117); Anion Gap 13 (12-20); Aspartate Amino Transferase 17 U/L (5-31); Bilirubin Total 0.2 mg/dL (0.0-1.0); Blood Urea Nitrogen 8 mg/dL (9-16); Calcium 8.5 mg/dL (8.4-10.2); Carbon Dioxide 23 mmol/L (22-29); Chloride 106 mmol/L (96-108); Creatinine Clr Calc Pharmacy 128.4; Estimated Glomerular Filt Rate > 60; Glucose Random 156 mg/dL (60-115); Lipase 28 U/L (8-78); Potassium 3.6 mmol/L (3.3-5.1); Sodium 138 mmol/L (135-145); Total Protein 6.9 g/dL (6.5-8.0)
[2024-04-10 05:05] LABS: HCG Quantitative < 2 mIU/mL
[2024-04-10 06:22] LABS: Appearance Urine Clear; Color Urine Yellow; Glucose Urine UA >=1000 mg/dL (Negative); Leukocyte Esterase Urine Negative (Negative); Nitrite Urine Negative (Negative); PH 5.5 (5.0-9.0); UMIC TRIGGER UACC YES; Urine Blood Negative (Negative); Urine Ketones Negative (Negative); Urine Protein Negative (Neg-Trace)
[2024-04-10 06:23] VITALS: BP 107/43; PULSE 83; RESP 16; TEMP 37.2; O2SAT 98
[2024-04-10 06:27] LABS: Bacteria Urine None Seen (None Seen); Hyaline Casts Urine 0-2 /LPF (0-2); RBC Urine 0-2 /HPF (0-2); Squamous Epithelial Cell Urine 0-2 /HPF (0-2); WBC Urine 0-5 /HPF (0-5)
--- NOTE | 2024-04-10 06:45 | ED.NAVMDI ---
HPI - Nausea/Vomiting/Diarrhea General Chief complaint: Abdominal Pain Stated complaint: Abdominal pain, back pain, sweating Time Seen by Provider: 04/10/24 06:29 Source: patient and EMS Mode of arrival: EMS Limitations: no limitations History of Present Illness ED Provider: Michael Nelson PA-C HPI Narrative: 43 yo female with history of obesity, RASTA, DOWNEY, fibromyalgia, iron deficiency anemia who presents to the ER via EMS from home for evaluation of abdominal pain, nausea, and fecal incontinence. Patient reportedly woke up with back and belly pain, having nausea and an episode of diarrhea, reportedly in her sleep and did not know what was happening. She states she did not have the sensation she was going to have a BM. She reports several episodes of this over the last few years with unknown etiology. She has seen GI for this in the past. She reports multiple episodes of watery stools yesterday as well as today in the toilet after the incontinence episode in bed. MD elicited complaint: nausea, diarrhea and abdominal pain Description of diarrhea: watery Associated nausea: Yes Associated abdominal pain: Yes Location of pain: diffuse Radiation: diffuse Pain consistency: intermittent Severity: severe Pain scale (0-10): 9 Quality: cramping Exacerbating factors: none Relieving factors: none Associated symptoms: denies other symptoms Related Data Home Medications ?Medication ?Instructions ?Recorded ?Confirmed duloxetine 60 mg capsule,delayed 60 mg PO DAILY 08/26/20 12/30/23 release blood-glucose meter (ReliOn 03/15/22 12/30/23 All-In-One Meter kit) lancets 26 gauge 03/15/22 12/30/23 estazolam 2 mg tablet 2 mg PO BEDTIME 09/13/22 12/30/23 Previous Rx's ?Medication ?Instructions ?Recorded lancets 28 gauge (FreeStyle #100 ea 07/15/21 Lancets) blood sugar diagnostic (ReliOn #100 ea 04/06/22 Prime Test Strips) vitamin A acetate 3,000 mcg 10,000 unit sublingual DAILY #90 07/04/22 (10,000 unit) sublingual tablet tabs cholecalciferol (vitamin D3) 25 25 mcg PO DAILY 90 days #90 caps 06/23/23 mcg (1,000 unit) capsule empagliflozin 25 mg tablet 25 mg PO DAILY 90 days #90 tabs 08/29/23 (Jardiance) albuterol sulfate 90 mcg/actuation 2 puff inhalation Q6H PRN 09/21/23 aerosol inhaler (Ventolin HFA) shortness of breath or wheezing #8.5 grams bupropion HCl 150 mg 24 hr tablet, 150 mg PO QAM 90 days #90 tabs 09/21/23 extended release cetirizine 10 mg tablet (Zyrtec) 10 mg PO DAILY 90 days #90 tabs 09/21/23 lisinopril 5 mg tablet 5 mg PO DAILY 90 days #90 tabs 09/21/23 fluticasone propionate 50 1 spray intranasal DAILY #9.9 mL 12/03/23 mcg/actuation nasal spray,suspension (Flonase Allergy Relief) metformin 1,000 mg tablet 1,000 mg PO BID 90 days #180 tabs 12/18/23 dulaglutide 0.75 mg/0.5 mL 0.75 mg (0.5 mL) subcut QWEEK #2 mL 01/03/24 subcutaneous pen injector (Georama) blood sugar diagnostic (FreeStyle #100 ea 03/11/24 Lite Strips) blood-glucose meter (FreeStyle #1 ea 03/11/24 Lite Meter kit) lancets 28 gauge (FreeStyle #100 ea 03/11/24 Lancets) Allergies Allergy/AdvReac Type Severity Reaction Status Date / Time horse dander [HORSE DANDER] Allergy Intermediate Rash Verified 04/10/24 04:04 mold [MOLD] Allergy Intermediate rash Verified 04/10/24 04:04 pollen extracts [POLLEN] Allergy Intermediate Rash Verified 04/10/24 04:04 trazodone AdvReac Intermediate dry mouth, Verified 04/10/24 04:04 sleepwalking GRASS Allergy Intermediate Rash Uncoded 04/10/24 04:04 Review of Systems Review of Systems: Yes all other systems are reviewed and are negative Gastrointestinal: Gastrointestinal: Reports nausea PMFSH Past Medical History Medical History (Updated 04/10/24 @ 11:13 by NERI Jiang) Uncontrolled type 2 diabetes mellitus with hyperglycemia Cholelithiasis Asthma RASTA on CPAP Morbid obesity Exposure to COVID-19 virus Diabetes mellitus Dysuria RASTA on CPAP Liver lesion Iron deficiency anemia Diverticulitis Impaired glucose tolerance GERD (gastroesophageal reflux disease) Insomnia Paresthesia Morbid obesity with BMI of 50.0-59.9, adult Arthralgia Edema Depression Active asthma Super obese Eczema Migraines Iron deficiency anemia RASTA (obstructive sleep apnea) Fibromyalgia Surgical History History of tonsillectomy History of tubal ligation History of appendectomy Family History Family History Father Diabetes Alzheimer disease Mother Diabetes Hypertension Maternal Grandmother Breast cancer Maternal Grandfather Prostate cancer Social History Social History Household Members: Children Housing: Apartment Alcohol intake: never Patient Tobacco Use Status: Never used Tobacco Smoked in Last 30 Days: No e-Cigarette/Vaping Use: Never Used Second Hand Smoke Exposure: No Use of substances other than those prescribed or required for medical reasons: No Any prior treatment program specific to substance use: No Advance Directives: Yes Advance Directives on File: Yes Advance Directives Date on File: 11/27/22 Do you have a plan to hurt others: No Plan Patient : No service: No Current occupational status: employed Current occupational exposures/hazards: No Cognitive needs: No Hearing needs: No Vision needs: No Physical Exam Vital Signs: Vital Signs: Last Vital Signs Temp 97.9 F 04/10/24 09:03 Pulse 91 04/10/24 09:03 Resp 16 04/10/24 09:03 BP 117/58 L 04/10/24 09:03 Pulse Ox 94 04/10/24 09:03 O2 Del Method Room Air 04/10/24 09:03 BMI result Body Mass Index 47.8 Appearance: Alert. Oriented X3. No acute distress. Head: normocephalic, atraumatic. Eyes: Pupils equal, round and reactive to light. ENT: Pharynx normal. No tonsillar swelling or exudate. Neck: Normal inspection. Neck supple. CVS: Normal heart rate and rhythm. Pulses normal. Respiratory: No respiratory distress. Breath sounds normal. Abdomen: Softly distended wtih diffuse tenderness, normal active +BS x4 DHEERAJ: Normal external inspection, normal rectal tone, no stool in the rectal vault Skin: Skin warm and dry. Normal skin color. Normal skin turgor. No rashes. Extremities: No lower extremity edema. No joint swelling. Neuro/psych: Oriented X 3. No motor deficit. No sensory deficit. CN II-XII intact. Normal speech and cognition. Medications Administered Discontinued Medications Generic Name Dose Route Start Last Admin Trade Name Isabella PRN Reason Stop Dose Admin Ketorolac Tromethamine 15 mg 04/10/24 07:42 04/10/24 09:09 Ketorolac Tromethamine 15 Mg/Ml Vial IM 04/10/24 07:43 15 mg ONCE ONE Administration Ondansetron HCl 4 mg 04/10/24 07:13 04/10/24 07:42 Ondansetron Odt 4 Mg Tab.Rapdis TRANSLINGU 04/10/24 07:14 4 mg ONCE ONE Administration Medical Decision Making Medical Decision Making MDM Narrative: 43 yo female with history of obesity, RASTA, DOWNEY, fibromyalgia, iron deficiency anemia who presents to the ER via EMS from home for evaluation of abdominal pain, nausea, and fecal incontinence it occurred last night. Upon further questioning patient reports that this has been happening intermittently for the last 2 years. She reports fecal incontinence episodes 5-6 times per month, when she gets loose watery stools. She states every time she eats she needs to run to the bathroom within 10 minutes because she has loose bowel movements. She denies any numbness or tingling to her lower extremities. No spinal cord injuries. Lab work shows a mild leukocytosis of 13,000. Lab work otherwise unremarkable. Urinalysis negative for infection. She does have some abdominal tenderness and distention so CT scan was done. Stool studies were also ordered but she has not had any bowel movements here. Rectal tone was normal. 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 CT scan showing no acute abdominal process, she does have a low-lying IUD, no pelvic complaints, pelvic pain, uterine bleeding. She has an OBGYN she can follow-up with for this. At this time comfortable discharge home with josiah Nogueira and outpatient follow-up with Dr. Arteaga from GI for further evaluation and treatment. Patient agrees with plan stable for discharge home Differential Diagnosis Differential Diagnoses: The differential diagnosis associated with the presentation includes Gastroenteritis, idiopathic fecal incontinence, overflow fecal incontinence, decreased rectal compliance, rectal prolapse, low suspicion for cauda equina or spinal cord injury Admission/Observation Consideration of admission/observation: Escalation of care including admission/observation considered Lab Data MDM Lab Attestation statement: I reviewed the patient's lab results. Leukocytosis, stable anemia, mild hyperglycemia 04/10/24 04:35 04/10/24 04:35 Labs: Lab Results 04/10/24 04/10/24 Range/Units 04:35 06:14 WBC 13.1 H (4.8-10.8) X10*3/uL RBC 4.02 L (4.20-5.50) X10*6/uL Hgb 9.0 L (12.0-16.0) g/dl Hct 30.6 L (37.0-47.0) % MCV 76.1 L (80.0-98.0) fL MCH 22.4 L (27.0-33.0) pg MCHC 29.4 L (31.0-35.0) g/dl RDW 18.9 H (11.0-16.0) % Plt Count 380 (160-400) X10*3/uL MPV 9.0 L (9.4-12.3) fL Absolute Nucleated RBC 0.000 (0.0-0.012) X10*3/uL Nucleated RBC % (auto) 0.0 (0.0-0.2) /100WBC Sodium 138 (135-145) mmol/L Potassium 3.6 (3.3-5.1) mmol/L Chloride 106 (96-108) mmol/L Carbon Dioxide 23 (22-29) mmol/L Anion Gap 13 (12-20) BUN 8 L (9-16) mg/dL Creatinine 0.71 (0.5-1.4) mg/dL Estim Creat Clear Calc 128.4 Estimated GFR > 60 Random Glucose 156 H (60-115) mg/dL Calcium 8.5 D (8.4-10.2) mg/dL Magnesium 2.0 (1.6-2.6) mg/dL Total Bilirubin 0.2 (0.0-1.0) mg/dL AST 17 (5-31) U/L ALT 11 (0-31) U/L Alkaline Phosphatase 104 (39-117) U/L Total Protein 6.9 (6.5-8.0) g/dL Albumin 3.8 (3.5-5.0) g/dL Lipase 28 (8-78) U/L Beta HCG, Quant < 2 mIU/mL Urine Color Yellow Urine Appearance Clear Urine pH 5.5 (5.0-9.0) Ur Specific [place] 1.010 (1.005-1.025) Urine Protein Negative (Neg-Trace) mg/dL Urine Glucose (UA) >=1000 H (Negative) mg/dL Urine Ketones Negative (Negative) mg/dL Urine Blood Negative (Negative) Urine Nitrite Negative (Negative) Ur Leukocyte Esterase Negative (Negative) Urine RBC 0-2 (0-2) /HPF Urine WBC 0-5 (0-5) /HPF Ur Squamous Epith Cells 0-2 (0-2) /HPF Urine Bacteria None Seen (None Seen) Hyaline Casts 0-2 (0-2) /LPF COVID-19 (ERIK) Negative (Negative) COVID-19 Clin Com See Note Influenza Type A (SELINA) Negative (Negative) Influenza Type B (SELINA) Negative (Negative) Influenza A & B Note See Note Independent Interpretation I performed an independent interpretation of an: CT Scan Interpretation: IUD in place in the uterus, no evidence of perforation, no air-fluid levels to suggest bowel obstruction Radiology Impression Discussion of test interpretation with radiology: I have reviewed the radiologist's reading. Radiologist Impression: CT/CT abdomen pelvis wo IV con IMPRESSION: Possible low lying or malpositioned intrauterine device. Enlarged fibroid uterus. Consider pelvic ultrasound. Hepatic steatosis and hepatomegaly. Independent Historian Clinical information obtained from an independent historian. History obtained from or confirmed by: EMS External Record Review External record reviewed: Office record, Outpatient record, Prior outpatient labs and Prior outpatient radiology Prescription Management I considered prescription management with: Pain Medication and Antibiotic Chronic Conditions Patient?s care impacted by: Diabetes, Hypertension and Other (obesity) Critical Care Time Critical Care Time Critical Care Time: No Discharge Plan Discharge Clinical Impression: Diarrhea Qualifiers: Diarrhea type: unspecified type Qualified Code(s): R19.7 - Diarrhea, unspecified Patient Disposition: Home, Self-Care Instructions: Acute Diarrhea (ED) Additional Instructions: You lab workup today was unremarkable. Your urine test was negative for infection. You most likely have a viral GI bug also known as gastroenteritis. Treatment is supportive care, symptoms usually resolve on their own in 48-72 hours. Recommend rest and plenty of oral hydration. Stick to a bland diet like soup and toast while you are not feeling well. Take the prescribed medication as needed for nausea. Recommend over the counter Pepto Bismol or Imodium for upset stomach and diarrhea. Follow up with Gastroenterology for further evaluation. Call for an apppointment. CT scan showed a low laying IUD. Recommend following up with [facility]. If you develop new or worsening symptoms call 911 or come back to the ER for further evaluation. Prescriptions: No Action (DME) lancets [FreeStyle Lancets] 28 gauge misc See Rx Instructions .Route Qty: 100 3RF Rx Instructions: Use 1 lancet once a day (DME) ReliOn Prime Test Strips Strip See Rx Instructions .Route Qty: 100 1RF Rx Instructions: As directed vitamin A acetate 10,000 unit tablet, sublingual 10,000 unit sublingual DAILY Qty: 90 1RF cholecalciferol (vitamin D3) 25 mcg (1,000 unit) capsule 25 mcg PO DAILY 90 Days Qty: 90 1RF Jardiance 25 mg tablet 25 mg PO DAILY 90 Days Qty: 90 2RF lisinopril 5 mg tablet 5 mg PO DAILY 90 Days Qty: 90 1RF cetirizine [Zyrtec] 10 mg tablet 10 mg PO DAILY 90 Days Qty: 90 1RF albuterol sulfate [Ventolin HFA] 90 mcg/actuation HFA aerosol inhaler 2 puff inhalation Q6H PRN (Reason: shortness of breath or wheezing) Qty: 8.5 2RF bupropion HCl 150 mg tablet extended release 24 hr 150 mg PO QAM 90 Days Qty: 90 1RF metformin 1,000 mg tablet 1,000 mg PO BID 90 Days Qty: 180 1RF (DME) FreeStyle Lite Strips Strip See Rx Instructions .ROUTE .MEDSUPPLY Qty: 100 3RF Rx Instructions: use daily As directed to check blood sugars for diabetes (DME) lancets [FreeStyle Lancets] 28 gauge misc See Rx Instructions .ROUTE .MEDSUPPLY Qty: 100 3RF Rx Instructions: Use daily As directed to check blood sugar (DME) blood-glucose meter [FreeStyle Lite Meter] Kit See Rx Instructions .ROUTE .MEDSUPPLY Qty: 1 0RF Rx Instructions: Use daily As directed to check blood glucose duloxetine 60 mg capsule,delayed release(DR/EC) 60 mg PO DAILY fluticasone propionate [Flonase Allergy Relief] 50 mcg/actuation spray,suspension 1 spray intranasal DAILY Qty: 9.9 1RF Rx Instructions: administer into each nostril estazolam 2 mg tablet 2 mg PO BEDTIME (DME) blood-glucose meter [ReliOn All-In-One Meter] Kit See Rx Instructions .Route Rx Instructions: As directed (DME) lancets 26 gauge misc See Rx Instructions .Route Rx Instructions: As directed Trulicity 0.75 mg/0.5 mL pen injector 0.75 mg subcut QWEEK Qty: 2 3RF Referrals: [facility] [place] [facility] [Provider Group] (fecal incontinence) Maribell West MD [Primary Care Provider] - Print Language: Cymro
[2024-04-10] MEDS: Ondansetron ODT 4 MG TAB.RAPDIS TRANSLINGU (07:42)
[2024-04-10 09:03] VITALS: BP 117/58; PULSE 91; RESP 16; TEMP 36.6; O2SAT 94
[2024-04-10] MEDS: Ketorolac Tromethamine 15 MG/ML VIAL IM (09:09)
[2024-04-10 11:55] VITALS: BP 125/68; PULSE 87; RESP 18; TEMP 36.7; O2SAT 97
== END 2024-04-10 11:55 | disposition home or self-care (01) ==
PROVIDERS: Emergency Provider Emergency Medicine; PCP Internal Medicine
DX: R19.7 Diarrhea, unspecified (principal); R10.9 Unspecified abdominal pain; E11.9 Type 2 diabetes mellitus without complications; I10 Essential (primary) hypertension; Z79.84 Long term (current) use of oral hypoglycemic drugs; Z79.85 Long-term (current) use of injectable non-insulin antidiabetic drugs
CPT/HCPCS: 36415; 74176; 80053; 81001; 83690; 83735; 84702; 85027; 87502; 87635; 93005; 96372; 99284; 99285; J1885

== ENCOUNTER 2024-04-15 07:48 | Outpatient (AMB) | payer OTHER, SELFPAY ==
[2024-04-15 07:59] VITALS: BP 130/70; BMI 47.8
--- NOTE | 2024-04-15 07:59 | MHC.PC.OV ---
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 Accompanied by: Self / Same As Patient Allergies horse dander [HORSE DANDER] Allergy (Intermediate, Verified 04/15/24 08:08) Rash mold [MOLD] Allergy (Intermediate, Verified 04/15/24 08:08) rash pollen extracts [POLLEN] Allergy (Intermediate, Verified 04/15/24 08:08) Rash trazodone Adverse Reaction (Intermediate, Verified 04/15/24 08:08) dry mouth, sleepwalking GRASS Allergy (Intermediate, Uncoded 04/15/24 08:08) Rash Medication List - Last Reconciled 04/15/24 by Maribell Davalos MD albuterol sulfate 90 mcg/actuation (Ventolin HFA) 2 puffs inhalation Q6H PRN blood sugar diagnostic (FreeStyle Lite Strips) use daily As directed to check blood sugars for diabetes blood sugar diagnostic (ReliOn Prime Test Strips) As directed blood-glucose meter (FreeStyle Lite Meter kit) Use daily As directed to check blood glucose blood-glucose meter (ReliOn All-In-One Meter kit) As directed bupropion HCl XL 150 mg PO QAM 90 days cetirizine (Zyrtec) 10 mg PO DAILY 90 days cholecalciferol (vitamin D3) 25 mcg PO DAILY 90 days dulaglutide (Trulicity) 0.75 mg (0.5 mL) subcut QWEEK duloxetine 60 mg PO DAILY empagliflozin (Jardiance) 25 mg PO DAILY 90 days estazolam 2 mg PO BEDTIME fluticasone propionate 50 mcg/actuation (Flonase Allergy Relief) 1 spray intranasal DAILY lancets (FreeStyle Lancets) Use 1 lancet once a day lancets (FreeStyle Lancets) Use daily As directed to check blood sugar lancets As directed lisinopril 5 mg PO DAILY 90 days metformin 1,000 mg PO BID 90 days vitamin A acetate 10,000 units sublingual DAILY Tobacco use date assessed: 12/03/23 Dental Screening Dental Screen Date: 04/15/24 Did you have a dental visit in the last 12 months?: Yes Did you have a dental problem in the last 6 months where you did not have access to dental care?: No Was dental information given to patient?: Patient has dentist HPI HPI Comments History of Present Illness Details This is a 43-year-old female with diabetes mellitus type 2, mild recurrent major depression, hypertension and morbid obesity that comes today for follow-up on conditions. Last A1c was within goal. Depression stable and has psychiatrist. Blood pressure well controlled. She is morbidly obese with a BMI of 47.8 and declines weight loss surgery. Advised to do diet and exercise to reach BMI goal less than 30. She has been on metformin and Trulicity as well as Jardiance for over 90 days. I will change Trulicity to Ozempic. She said she has diarrhea 2 hours after having Trulicity. Went to ER recently due to an episode of bowel incontinence. She complains of diarrhea after eating gluten such as bread, pasta and flour. And will test her for celiac disease. [facility] Medical History (Updated 04/15/24 @ 08:28 by Maribell Davalos MD) Uncontrolled type 2 diabetes mellitus with hyperglycemia Cholelithiasis Asthma RASTA on CPAP Morbid obesity Exposure to COVID-19 virus Diabetes mellitus Dysuria RASTA on CPAP Liver lesion Iron deficiency anemia Diverticulitis Impaired glucose tolerance GERD (gastroesophageal reflux disease) Insomnia Paresthesia Morbid obesity with BMI of 50.0-59.9, adult Arthralgia Edema Depression Active asthma Super obese Eczema Migraines Iron deficiency anemia RASTA (obstructive sleep apnea) Fibromyalgia Surgical History History of tonsillectomy History of tubal ligation History of appendectomy Family History Father Diabetes Alzheimer disease Mother Diabetes Hypertension Maternal Grandmother Breast cancer Maternal Grandfather Prostate cancer Social History Household Members: Children Housing: Apartment Alcohol intake: never Patient Tobacco Use Status: Never used Tobacco e-Cigarette/Vaping Use: Never Used Second Hand Smoke Exposure: No Advance Directives Date on File: 11/27/22 service: No Current occupational status: unemployed Cognitive needs: No Hearing needs: No Vision needs: No Female Reproductive History Menstrual Age of Menarche: 10 Questionnaire Thrive Questionnaire Date Thrive assessed: 12/03/23 Are you currently unemployed and looking for a job?: I choose not to answer this question GENEVIEVE-7 AMB Questionnaire GENEVIEVE-7 Date GENEVIEVE - 7 assessed: 12/03/23 Source: Developed by Drs. Dhaval Pacheco, Shireen Pulido, Thor Rodriguez and colleagues, with an educational shirlene from [employer]. Review of Systems Const All systems reviewed & are unremarkable except as noted in HPI and below Card Denies chest pain at rest, Denies chest pain with activity, Denies edema, Denies irregular heart rhythm, Denies claudication, Denies dyspnea, Denies dyspnea on exertion, Denies orthopnea, Denies paroxysmal nocturnal dyspnea and Denies slow heart rate Resp Denies cough, Denies dyspnea and Denies dyspnea on exertion GI Denies abdominal pain, Denies change in bowel habits, Denies excessive flatus, Reports diarrhea, Denies nausea and Denies vomiting Denies urinary incontinence, Denies urinary hesitancy and Denies urinary urgency Musc Denies abnormal gait, Denies atrophy, Denies deformity and Denies limited range of motion Skin/Breast Denies bleeding lesions, Denies changing lesions and Denies rash Neuro Denies abnormal gait and Denies lack of coordination Physical exam (Primary Care) Vital Signs: Last Vital Signs BP 130/70 04/15/24 07:59 BMI result Body Mass Index 47.8 BMI Assessment/Plan discussion: High BMI High, discussed plan: lifestyle, weight reduction, dietary and physical activity Tobacco/Smoking Status: Tobacco use Status Tobacco use date assessed 12/03/23 04/15/24 08:03 Patient Tobacco Use Status Never used Tobacco 04/15/24 08:03 e-Cigarette/Vaping Use Never Used 04/15/24 08:03 Thrive Assessment: Date of Thrive Assessment Date Thrive assessed 12/03/23 04/15/24 08:03 Resp Effort & Inspection: normal respiratory effort Auscultation: clear to auscultation bilaterally Cardio Jugular venous distension: no JVD Rate: regular rate Rhythm: regular rhythm Heart sounds: S1 normal heart sound present and S2 normal heart sound present Extrem General: Yes full ROM Assessment and Plan Assessment & Plan (1) Mild recurrent major depression: Code(s): F33.0 - Major depressive disorder, recurrent, mild Plan: Continue duloxetine. Follow-up with psychiatry. (2) Morbid obesity with BMI of 45.0-49.9, adult: Code(s): E66.01 - Morbid (severe) obesity due to excess calories; Z68.42 - Body mass index [BMI] 45.0-49.9, adult Plan: Start diet and exercise. BMI goal is less than 30. (3) Essential hypertension: Code(s): I10 - Essential (primary) hypertension Plan: Continue lisinopril. Blood pressure goal is equal or less than 130/80. (4) Diabetes mellitus without complication, without long-term current use of insulin: Code(s): E11.9 - Type 2 diabetes mellitus without complications Qualifiers: Diabetes mellitus type: type 2 Qualified Code(s): E11.9 - Type 2 diabetes mellitus without complications Plan: Continue metformin and Jardiance. Change Trulicity to Ozempic. A1c goal is equal or less than 7%. Orders: Orders Lipid Panel Today E78.5 - Hyperlipidemia, unspecified Comprehensive [place]. Panel Fast Today E11.9 - Type 2 diabetes mellitus without complications Celiac Disease Panel Today D64.9 - Anemia, unspecified Medications: New semaglutide (Ozempic) for 4 weeks 0.25 mg (0.368 mL) subcut QWEEK 4 weeks 1.472 mL 0RF E11.9 - Type 2 diabetes mellitus without complications Coding Level of Care Code Est Pt Level 4 (81640) Complex EM visit Add On G2211 Diagnoses Mild recurrent major depression F33.0 Morbid obesity with BMI of 45.0-49.9, adult E66.01; Z68.42 Essential hypertension I10 Type 2 diabetes mellitus without complication, without long-term current use of insulin E11.9 Diabetes mellitus type: type 2 Time Spent (min) 23
== END 2024-04-15 08:26 | disposition home or self-care (01) ==
PROVIDERS: PCP Internal Medicine; Visit Provider Internal Medicine
DX: F33.0 Major depressive disorder, recurrent, mild (principal); E66.01 Morbid (severe) obesity due to excess calories; Z68.42 Body mass index [BMI] 45.0-49.9, adult; I10 Essential (primary) hypertension; E11.9 Type 2 diabetes mellitus without complications

== ENCOUNTER → 2024-04-15 07:48 | Outpatient (BNVA) | payer OTHER, SELFPAY | PROVIDERS: PCP Internal Medicine; Visit Provider Internal Medicine | DX: E11.9 Type 2 diabetes mellitus without complications (principal); E66.01 Morbid (severe) obesity due to excess calories; Z68.42 Body mass index [BMI] 45.0-49.9, adult; F33.0 Major depressive disorder, recurrent, mild; Z79.85 Long-term (current) use of injectable non-insulin antidiabetic drugs | CPT/HCPCS: 99212 ==

== ENCOUNTER 2024-05-29 07:02 | Outpatient (REF) | payer OTHER, SELFPAY ==
[2024-05-29 08:54] LABS: Alanine Aminotransferase 10 U/L (0-31); Albumin Level 3.9 g/dL (3.5-5.0); Anion Gap 14 (12-20); Aspartate Amino Transferase 25 U/L (5-31); Bilirubin Total 0.3 mg/dL (0.0-1.0); Blood Urea Nitrogen 8 mg/dL (9-16); Calcium 8.7 mg/dL (8.4-10.2); Carbon Dioxide 24 mmol/L (22-29); Chloride 105 mmol/L (96-108); Cholesterol 128 mg/dL (<200); Estimated Glomerular Filt Rate > 60; Glucose Fasting 150 mg/dL (60-99); HDL Cholesterol 39 mg/dL (>40); LDL Cholesterol Calculated 62 mg/dL (<100); Potassium 4.3 mmol/L (3.3-5.1); Sodium 139 mmol/L (135-145); Triglycerides 136 mg/dL (<150)
[2024-05-29 09:05] LABS: Alkaline Phosphatase 115 U/L (39-117)
[2024-06-03 07:29] LABS: Immunoglobulin A 86 mg/dL (47-310); Transglutaminase IgA <1.0 U/mL
== END 2024-05-29 07:03 | disposition home or self-care (01) ==
LOC: HO.LAB 07:02
PROVIDERS: PCP Internal Medicine; Visit Provider Internal Medicine
DX: E78.5 Hyperlipidemia, unspecified (principal); I10 Essential (primary) hypertension; D64.9 Anemia, unspecified; E55.9 Vitamin D deficiency, unspecified
CPT/HCPCS: 36415; 80053; 80061; 82043; 82306; 82570; 82784; 86364

== ENCOUNTER 2024-07-28 08:54 | Outpatient (AMB) | payer OTHER, SELFPAY ==
[2024-07-28 09:06] VITALS: BP 122/70; BMI 45.0
--- NOTE | 2024-07-28 09:06 | A.OFFPC_ITS ---
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 Accompanied by: Self / Same As Patient Allergies horse dander [HORSE DANDER] Allergy (Intermediate, Verified 07/28/24 09:17) Rash mold [MOLD] Allergy (Intermediate, Verified 07/28/24 09:17) rash pollen extracts [POLLEN] Allergy (Intermediate, Verified 07/28/24 09:17) Rash trazodone Adverse Reaction (Intermediate, Verified 07/28/24 09:17) dry mouth, sleepwalking GRASS Allergy (Intermediate, Uncoded 07/28/24 09:17) Rash Medication List - Last Reconciled 07/28/24 by Maribell Davalos MD albuterol sulfate 90 mcg/actuation (Ventolin HFA) 2 puffs inhalation Q6H PRN blood sugar diagnostic (FreeStyle Lite Strips) use daily As directed to check blood sugars for diabetes blood sugar diagnostic (ReliOn Prime Test Strips) As directed blood-glucose meter (FreeStyle Lite Meter kit) Use daily As directed to check blood glucose blood-glucose meter (ReliOn All-In-One Meter kit) As directed bupropion HCl XL 150 mg PO QAM 90 days cetirizine (Zyrtec) 10 mg PO DAILY 90 days cholecalciferol (vitamin D3) 25 mcg PO DAILY 90 days dulaglutide (Trulicity) 0.75 mg (0.5 mL) subcut QWEEK duloxetine 60 mg PO DAILY empagliflozin (Jardiance) 25 mg PO DAILY 90 days estazolam 2 mg PO BEDTIME fluticasone propionate 50 mcg/actuation (Flonase Allergy Relief) 1 spray intranasal DAILY lancets (FreeStyle Lancets) Use 1 lancet once a day lancets (FreeStyle Lancets) Use daily As directed to check blood sugar lancets As directed lisinopril 5 mg PO DAILY 90 days metformin 1,000 mg PO BID 90 days semaglutide (Ozempic) 0.5 mg (0.736 mL) subcut QWEEK 4 weeks semaglutide (Ozempic) 0.5 mg (0.736 mL) subcut QWEEK 4 weeks semaglutide (Ozempic) 0.25 mg (0.368 mL) subcut QWEEK 4 weeks vitamin A acetate 10,000 units sublingual DAILY Tobacco use date assessed: 12/03/23 Dental Screening Dental Screen Date: 04/15/24 HPI HPI Comments History of Present Illness Details The patient is a 43-year-old female presenting for her physical exam. She has been managing her diabetes with Metformin at a frequency of twice daily. The patient previously was on a lower dose of Ozempic, increased from 0.25 mg to 0.5 mg, and plans to start 1 mg. The patient's past laboratory results in May indicated normal renal function and liver tests, with an LDL level of 62, and blood glucose level of 150. Additionally, the patient has a history of Major Depressive Disorder, for which she takes Bupropion 150 mg and Duloxetine 60 mg. Insomnia is managed with 2 mg Estazolam, although she mentions discontinuing its use. She reported allergies to horse dander, mold, pollen, and trazodone. Her past medical history includes hypertension treated with Lisinopril 5 mg. Furthermore, she requires the pneumonia vaccine, following a previous dose in 2018. She currently complains of nasal congestion and dry cough that started few days ago. Reports no sick contacts. Will be tested for COVID, RSV and flu. No fever. - Pending pneumonia vaccination update. - Diabetes management regimen: Metformin and incremental Ozempic dosing. - Depression management with Bupropion a nd Duloxetine. - Hypertension management and periodic m onitoring of blood pressure. - Previous normal renal function, liver function tests, and LDL levels discussed. [facility] Medical History Uncontrolled type 2 diabetes mellitus with hyperglycemia Cholelithiasis Asthma RASTA on CPAP Morbid obesity Exposure to COVID-19 virus Diabetes mellitus Dysuria RASTA on CPAP Liver lesion Iron deficiency anemia Diverticulitis Impaired glucose tolerance GERD (gastroesophageal reflux disease) Insomnia Paresthesia Morbid obesity with BMI of 50.0-59.9, adult Arthralgia Edema Depression Active asthma Super obese Eczema Migraines Iron deficiency anemia RASTA (obstructive sleep apnea) Fibromyalgia Surgical History History of tonsillectomy History of tubal ligation History of appendectomy Family History Father Diabetes Alzheimer disease Mother Diabetes Hypertension Maternal Grandmother Breast cancer Maternal Grandfather Prostate cancer Social History Household Members: Children Housing: Apartment Alcohol intake: never Patient Tobacco Use Status: Never used Tobacco e-Cigarette/Vaping Use: Never Used Second Hand Smoke Exposure: No Advance Directives Date on File: 11/27/22 service: No Current occupational status: unemployed Cognitive needs: No Hearing needs: No Vision needs: No Female Reproductive History Menstrual Age of Menarche: 10 Questionnaire PHQ-9 Over the last 2 weeks, how often have you been bothered by any of the following problems? 1. Little interest or pleasure in doing things: not at all 2. Feeling down, depressed, or hopeless: not at all 3. Trouble falling or staying asleep, or sleeping too much: nearly every day 4. Feeling tired or having little energy: several days 5. Poor appetite or overeating: not at all 6. Feeling bad about yourself - or that you are a failure or have let yourself or your family down: not at all 7. Trouble concentrating on things, such as reading the newspaper or watching television: not at all 8. Moving or speaking so slowly that other people could have noticed. Or the opposite - being so fidgety or restless that you have been moving around a lot more than usual: not at all 9. Thoughts that you would be better off or of hurting yourself in some way: not at all Total score: 4 Depression Screening Interpretation: Positive Depression Screening Follow-up: Existing condition, In treatment, Community Mental Health Worker F/U and Follow- up Visit Requested Depression Screening Done: Yes 03510 - PHQ-9 Billing: Yes Source: Developed by Drs. Dhaval Pacheco, Shireen Pulido, Thor Rodriguez and colleagues, with an educational shirlene from [employer]. Thrive Questionnaire Date Thrive assessed: 12/03/23 I am a: Patient What is your living situation today?: I have a steady place to live Within the past 12 months, did the food you bought not last and you didn't have the money to get more?: Sometimes True Within the past 12 months, did you worry whether your food would run out before you got money to buy more?: Never true Do you have trouble paying for medicines?: No Do you have trouble getting transportation to medical appointments?: No Do you have trouble paying your heating and electricity bill?: No Do you have trouble taking care of your child, family member or friend?: No Do you have trouble with day-to-day activities such as bathing, preparing meals, shopping, managing finances, etc.?: No Are you interested in more education?: No Please select the resources that you would like help with: None Currently or been in a relationship where the following occur: I choose not to answer THRIVE Score: 1 AUDIT C Alcohol Use Questionnaire (AUDIT-C) 1. How often do you have a drink containing alcohol?: Never Total Score: 0 Score Reviewed/Action Taken: No GENEVIEVE-7 AMB Questionnaire GENEVIEVE-7 Date GENEVIEVE - 7 assessed: 12/03/23 Feeling nervous, anxious, or on edge: 0 = Not at all Not being able to stop or control worryin = Not at all Worrying too much about different things: 0 = Not at all Trouble relaxin = Several days Being so restless that it is hard to sit still: 1 = Several days Becoming easily annoyed or irritable: 0 = Not at all Feeling afraid as if something awful might happen: 0 = Not at all Total GENEVIEVE-7 score (0-4 normal; 5-9 mild; 10-14 moderate; 15-21 severe): 2 Source: Developed by Drs. Dhaval Pacheco, Shireen Pulido, Thor Rodriguez and colleagues, with an educational shirlene from [employer]. GENEVIEVE-7 Assessment Billing GENEVIEVE-7 Assessment Tool: GENEVIEVE-7 Assessment 06064 Review of Systems Const All systems reviewed & are unremarkable except as noted in HPI and below Card Denies chest pain at rest, Denies chest pain with activity, Denies edema, Denies irregular heart rhythm, Denies claudication, Reports dyspnea, Reports dyspnea on exertion, Denies orthopnea, Denies paroxysmal nocturnal dyspnea and Denies slow heart rate Resp Reports cough, Reports dyspnea and Reports dyspnea on exertion Skin/Breast Denies bleeding lesions, Denies changing lesions and Denies rash Neuro Denies behavioral changes and Denies lack of coordination Psych Denies behavioral changes Physical exam (Primary Care) Vital Signs: Last Vital Signs BP 122/70 07/28/24 09:06 BMI result Body Mass Index 45.0 BMI Assessment/Plan discussion: High BMI High, discussed plan: lifestyle, weight reduction, dietary and physical activity Tobacco/Smoking Status: Tobacco use Status Tobacco use date assessed 12/03/23 07/28/24 09:09 Patient Tobacco Use Status Never used Tobacco 07/28/24 09:09 e-Cigarette/Vaping Use Never Used 07/28/24 09:09 PHQ-9: PHQ-9 Score PHQ-9: Total score 4 07/28/24 09:37 Depression Screening Interpretation: Positive Depression Screening Follow-up: Existing condition, In treatment, Community Mental Health Worker F/U and Follow- up Visit Requested Thrive Assessment: Date of Thrive Assessment Date Thrive assessed 12/03/23 07/28/24 09:09 Currently or been in a relationship where the following occur: I choose not to answer HENMT Head: Yes normal to inspection, Yes normocephalic and Yes atraumatic Ears: external ears normal Eyes General: appearance normal, both eyes and all related structures Eyelids: Yes eyelids normal Conjunctivae: conjunctivae normal Neck Neck: Yes normal visual inspection and Yes supple Resp Effort & Inspection: normal respiratory effort Auscultation: clear to auscultation bilaterally Cardio Jugular venous distension: no JVD Rate: regular rate Rhythm: regular rhythm Heart sounds: S1 normal heart sound present and S2 normal heart sound present GI Inspection: Yes normal to inspection Palpation (GI): Soft to palpation and nontender Auscultation: normal bowel sounds Skin General skin exam: no rashes or lesions noted Neuro General: no focal motor deficits Extrem General: Yes full ROM Psych Appearance: grossly normal Office Procedures Flu Questionnaire Does the patient have a severe egg allergy?: No Results AMB Hemoglobin A1c AMB Hemoglobin A1c 6.7 % Last Edit by ANAND Knapp on 07/28/24 09:1 9 Immunizations Fluarix Triv [id number] (PF) 45 mcg (15 mcg x 3)/0.5 mL IM syringe Performing Provider: Maribell Davalos MD [facility] Documented (not given) by: ANAND Knapp on 07/28/24 09:09 Reason Not Given: Patient Refused pneumoc 20-cindy conj-dip cr(PF) 0.5 mL IM syringe Performing Provider: Maribell Davalos MD [facility] Administered by: ANAND Knapp on 07/28/24 09:38 Dose Route Admin Location Dispensed Lot Number Expiration Date NDC Fan Blade Aligner 0.5 mL IM Left Deltoid 0.5 mL [id number] 10/27/25 [employer] VIS Given Date VIS Provided VIS Publication Date 07/28/24 Single Vaccine 21 Eligibility Eligibility Date Funding Source Not [facility] Eligible 07/28/24 Private Results Reviewed Results Reviewed: Laboratory Last Values Hgb A1c (Clinic) 6.7 % (4.0-6.0) H 07/28/24 09:02 Coding Level of Care Code Est Pt Level 3 (18880) Est Pt Prev Care 40-64y(59249) Diagnoses Physical exam Z00.00 Type 2 diabetes mellitus without complication, without long-term current use of insulin E11.9 Diabetes mellitus type: type 2 Morbid obesity with BMI of 45.0-49.9, adult E66.01; Z68.42 Mild recurrent major depression F33.0 URI (upper respiratory infection) J06.9 Additional Codes GENEVIEVE-7 Assessment Billing - GENEVIEVE-7 Assessment Tool: GENEVIEVE-7 Assessment 01255 ([id number]) PHQ-9 - 00707 - PHQ-9 Billing: Yes ([id number]) Time Spent (min) 35 Assessment & Plan Assessment & Plan (1) Physical exam: Code(s): Z00.00 - Encounter for general adult medical examination without abnormal findings Category: Medical (2) Diabetes mellitus without complication, without long-term current use of insulin: Code(s): E11.9 - Type 2 diabetes mellitus without complications Category: Medical Qualifiers: Diabetes mellitus type: type 2 Qualified Code(s): E11.9 - Type 2 diabetes mellitus without complications (3) Morbid obesity with BMI of 45.0-49.9, adult: Code(s): E66.01 - Morbid (severe) obesity due to excess calories; Z68.42 - Body mass index [BMI] 45.0-49.9, adult Category: Medical (4) Mild recurrent major depression: Code(s): F33.0 - Major depressive disorder, recurrent, mild Category: Medical (5) URI (upper respiratory infection): Code(s): J06.9 - Acute upper respiratory infection, unspecified Category: Medical Plan - Continue current diabetes management with Metformin and Ozempic, increasing the dose to 1 mg. - Reinforce adherence to hypertension management with Lisinopril 5 mg. - Ensure depression control continues with Bupropion and Duloxetine. - Administer pneumonia vaccine. - Follow up with a professor of rhetoric regarding anemia and any further management needed. - Albuterol to be used for respiratory relief as needed. Patient was informed and verbally consented to the use of an ambient scribe for clinic note documentation during this visit. I discussed with the patient the importance of maintaining control over her Type 2 Diabetes Mellitus and adjusting the Ozempic dose to 1 mg for optimal glycemic control. We reviewed her history of depression and the current treatment with Bupropion and Duloxetine, emphasizing the need for continued adherence to this regimen. The patient is advised to maintain regular blood pressure monitoring while on Lisinopril and remain vigilant for any symptoms of hypo/hyperglycemia. We also highlighted the relevance of receiving the pneumonia vaccine due to her previous dose in 2019 and her ongoing diabetes. I clarified that the laboratory results showed normal renal function, liver function, and acceptable LDL levels, providing reassurance regarding her current management plan's effectiveness. Orders: Orders Influenza [id number] Immunization 07/28/24 Z23 - Encounter for immunization AMB Hemoglobin A1c 07/28/24 E11.9 - Type 2 diabetes mellitus without complications SARS-CoV2/FLU/RSV 07/28/24 R09.89 - Other specified symptoms and signs involving the circulatory and respiratory systems Comprehensive [place]. Panel Fast 4 Months E11.9 - Type 2 diabetes mellitus without complications MM tomosynthesis screening BI 07/28/24 Z12.31 - Encounter for screening mammogram for malignant neoplasm of breast Pneumococcal 20 Immunization 07/28/24 Z23 - Encounter for immunization Vitamin D 25-OH Total 4 Months E55.9 - Vitamin D deficiency, unspecified Lipid Panel 4 Months E78.5 - Hyperlipidemia, unspecified Microalbumin, Random (w Creat) 4 Months R80.9 - Proteinuria, unspecified Medications: New semaglutide (Ozempic) 1 mg (0.75 mL) subcut QWEEK 4 weeks 3 mL 0RF E11.9 - Type 2 diabetes mellitus without complications guaifenesin ER (Mucinex) 600 mg PO Q12H 5 days PRN 10 tabs 0RF congestion Discontinued semaglutide (Ozempic) Discontinued Reason: Patient Completed Course 0.5 mg (0.736 mL) subcut QWEEK 4 weeks 2.944 mL 0RF semaglutide (Ozempic) Discontinued Reason: Patient Completed Course 0.5 mg (0.736 mL) subcut QWEEK 4 weeks 2.944 mL 0RF dulaglutide (Trulicity) Discontinued Reason: Patient Completed Course 0.75 mg (0.5 mL) subcut QWEEK 2 mL 3RF semaglutide (Ozempic) for 4 weeks Discontinued Reason: Patient Completed Course 0.25 mg (0.368 mL) subcut QWEEK 4 weeks 1.472 mL 0RF E11.9 - Type 2 diabetes mellitus without complications Patient Instructions: - Continue Metformin twice daily and start on 1 mg of Ozempic as discussed. - Take Albuterol as needed for shortness of breath. - Attend follow-up appointments with hematology as scheduled. - Adhere to prescribed regimens for depression and hypertension. - Return for the pneumonia vaccine as advised. - Monitor blood glucose and blood pressure regularly and report significant changes. - Seek medical attention if experiencing unusual symptoms or if health deteriorates.
== END 2024-07-28 09:39 | disposition home or self-care (01) ==
PROVIDERS: PCP Internal Medicine; Visit Provider Internal Medicine
DX: Z00.00 Encounter for general adult medical examination without abnormal findings (principal); E11.9 Type 2 diabetes mellitus without complications; E66.01 Morbid (severe) obesity due to excess calories; Z68.42 Body mass index [BMI] 45.0-49.9, adult; F33.0 Major depressive disorder, recurrent, mild; J06.9 Acute upper respiratory infection, unspecified

== ENCOUNTER 2024-07-28 08:54 | Outpatient (REF) | payer OTHER, SELFPAY ==
[2024-07-28 11:36] LABS: Influenza A PCR NEGATIVE (Negative); Influenza B PCR NEGATIVE (Negative); Resp Syncy Virus RNA Qual PCR POSITIVE (Negative); SARS COV2 PCR INHOUSE NEGATIVE (Negative)
== END 2024-07-28 08:55 | disposition home or self-care (01) ==
LOC: HO.LAB 08:54
PROVIDERS: PCP Internal Medicine; Visit Provider Internal Medicine
DX: Z00.00 Encounter for general adult medical examination without abnormal findings (principal); Z23 Encounter for immunization; R09.89 Other specified symptoms and signs involving the circulatory and respiratory systems; E11.9 Type 2 diabetes mellitus without complications; E66.01 Morbid (severe) obesity due to excess calories; Z68.42 Body mass index [BMI] 45.0-49.9, adult; F33.0 Major depressive disorder, recurrent, mild; J06.9 Acute upper respiratory infection, unspecified; Z71.3 Dietary counseling and surveillance
CPT/HCPCS: 0241U; 83036; 90471; 90472; 90677; 96127; 99212; 99396

== ENCOUNTER 2024-09-08 13:21 | Outpatient (AMB) | payer OTHER, SELFPAY ==
--- NOTE | 2024-09-08 13:26 | MHC.PC.OV ---
Vital Signs 09/08/24 13:27 Height 5 ft 3 in Weight 251 lb 4 oz BMI 44.5 BP 156/84 H Blood Pressure Location Lt brachial Position Sitting Pulse 82 Pulse Source Pulse Oximeter Pulse Oximetry (%) 97 Oxygen Delivery Method Room Air Intake Visit Reasons: numbness legs Subsystems Engineer Required: No Accompanied by: Self / Same As Patient Allergies horse dander [HORSE DANDER] Allergy (Intermediate, Verified 09/09/24 08:38) Rash mold [MOLD] Allergy (Intermediate, Verified 09/09/24 08:38) rash pollen extracts [POLLEN] Allergy (Intermediate, Verified 09/09/24 08:38) Rash trazodone Adverse Reaction (Intermediate, Verified 09/09/24 08:38) dry mouth, sleepwalking GRASS Allergy (Intermediate, Uncoded 09/09/24 08:38) Rash Medication List - Last Reconciled 09/09/24 by DELMI Dial albuterol sulfate 90 mcg/actuation (Ventolin HFA) 2 puffs inhalation Q6H PRN blood sugar diagnostic (FreeStyle Lite Strips) use daily As directed to check blood sugars for diabetes blood sugar diagnostic (ReliOn Prime Test Strips) As directed blood-glucose meter (FreeStyle Lite Meter kit) Use daily As directed to check blood glucose blood-glucose meter (ReliOn All-In-One Meter kit) As directed bupropion HCl XL 150 mg PO QAM 90 days cetirizine (Zyrtec) 10 mg PO DAILY 90 days cholecalciferol (vitamin D3) 25 mcg PO DAILY 90 days duloxetine 60 mg PO DAILY empagliflozin (Jardiance) 25 mg PO DAILY 90 days estazolam 2 mg PO BEDTIME fluticasone propionate 50 mcg/actuation (Flonase Allergy Relief) 1 spray intranasal DAILY guaifenesin ER (Mucinex) 600 mg PO Q12H PRN 5 days lancets (FreeStyle Lancets) Use 1 lancet once a day lancets (FreeStyle Lancets) Use daily As directed to check blood sugar lancets As directed lisinopril 5 mg PO DAILY 90 days meloxicam 15 mg PO DAILY metformin 1,000 mg PO BID 90 days methylprednisolone (Medrol (Madhu)) PO PER PKG DIR for 6 days semaglutide (Ozempic) 1 mg (0.75 mL) subcut QWEEK 4 weeks vitamin A acetate 10,000 units sublingual DAILY Tobacco use date assessed: 09/08/24 Dental Screening Dental Screen Date: 09/08/24 Did you have a dental visit in the last 12 months?: Yes Did you have a dental problem in the last 6 months where you did not have access to dental care?: No Was dental information given to patient?: Patient has dentist HPI numbness legs HPI Details Patient is a 39-year-old female with significant past medical history of diabetes, hypertension, morbid obesity, paresthesia, arthralgia and fibromyalgia The patient is presenting today with complaints of left lower back pain that radiates to left buttocks down to the back of left thigh Reports that she has a pins and needle sensation and his sharp pain Patient reports that it started on Saturday night. He denies any recent injury. She reports that Saturday morning she felt like she could not get out of bed She tried the heating pad that seems to be working a little She reports that she had this same pain about 6 years ago Concerns for sciatica nerve impingement: slr on right leg to 60 degrees with stiffness in the hip and slr to left leg to 40 degrees with pain down the back of left leg . [facility] Medical History Uncontrolled type 2 diabetes mellitus with hyperglycemia Cholelithiasis Asthma RASTA on CPAP Morbid obesity Exposure to COVID-19 virus Diabetes mellitus Dysuria RASTA on CPAP Liver lesion Iron deficiency anemia Diverticulitis Impaired glucose tolerance GERD (gastroesophageal reflux disease) Insomnia Paresthesia Morbid obesity with BMI of 50.0-59.9, adult Arthralgia Edema Depression Active asthma Super obese Eczema Migraines Iron deficiency anemia RASTA (obstructive sleep apnea) Fibromyalgia Surgical History History of tonsillectomy History of tubal ligation History of appendectomy Family History Father Diabetes Alzheimer disease Mother Diabetes Hypertension Maternal Grandmother Breast cancer Maternal Grandfather Prostate cancer Social History Household Members: Children Housing: Apartment Alcohol intake: never Patient Tobacco Use Status: Never used Tobacco e-Cigarette/Vaping Use: Never Used Second Hand Smoke Exposure: No Advance Directives Date on File: 11/27/22 service: No Current occupational status: unemployed Cognitive needs: No Hearing needs: No Vision needs: No Female Reproductive History Menstrual Age of Menarche: 10 Questionnaire PHQ-9 Over the last 2 weeks, how often have you been bothered by any of the following problems? 1. Little interest or pleasure in doing things: not at all 2. Feeling down, depressed, or hopeless: not at all 3. Trouble falling or staying asleep, or sleeping too much: nearly every day 4. Feeling tired or having little energy: several days 5. Poor appetite or overeating: not at all 6. Feeling bad about yourself - or that you are a failure or have let yourself or your family down: not at all 7. Trouble concentrating on things, such as reading the newspaper or watching television: not at all 8. Moving or speaking so slowly that other people could have noticed. Or the opposite - being so fidgety or restless that you have been moving around a lot more than usual: not at all 9. Thoughts that you would be better off or of hurting yourself in some way: not at all Total score: 4 Depression Screening Interpretation: Positive Depression Screening Follow-up: Existing condition, In treatment, Community Mental Health Worker F/U and Follow-up Visit Requested Depression Screening Done: Yes 88804 - PHQ-9 Billing: Yes Source: Developed by Drs. Dhaval Pacheco, Shireen Pulido, Thor Rodriguez and colleagues, with an educational shirlene from [employer]. Thrive Questionnaire Date Thrive assessed: 09/08/24 I am a: Patient What is your living situation today?: I have a steady place to live Within the past 12 months, did the food you bought not last and you didn't have the money to get more?: Sometimes True Within the past 12 months, did you worry whether your food would run out before you got money to buy more?: Never true Do you have trouble paying for medicines?: No Do you have trouble getting transportation to medical appointments?: No Do you have trouble paying your heating and electricity bill?: No Do you have trouble taking care of your child, family member or friend?: No Do you have trouble with day-to-day activities such as bathing, preparing meals, shopping, managing finances, etc.?: No Are you currently unemployed and looking for a job?: No Are you interested in more education?: No Please select the resources that you would like help with: None Currently or been in a relationship where the following occur: I choose not to answer THRIVE Score: 1 AUDIT C Alcohol Use Questionnaire (AUDIT-C) 1. How often do you have a drink containing alcohol?: Never 3. How often do you have six or more drinks on one occasion?: Never Total Score: 0 Score Reviewed/Action Taken: No GENEVIEVE-7 AMB Questionnaire GENEVIEVE-7 Date GENEVIEVE - 7 assessed: 09/08/24 Feeling nervous, anxious, or on edge: 0 = Not at all Not being able to stop or control worryin = Not at all Worrying too much about different things: 0 = Not at all Trouble relaxin = Several days Being so restless that it is hard to sit still: 1 = Several days Becoming easily annoyed or irritable: 0 = Not at all Feeling afraid as if something awful might happen: 0 = Not at all Total GENEVIEVE-7 score (0-4 normal; 5-9 mild; 10-14 moderate; 15-21 severe): 2 Source: Developed by Drs. Dhaval Pacheco, Shireen Pulido, Thor Rodriguez and colleagues, with an educational shirlene from [employer]. GENEVIEVE-7 Assessment Billing GENEVIEVE-7 Assessment Tool: GENEVIEVE-7 Assessment 81599 Review of Systems Const Details: Denies chills, Denies fatigue, Denies fever(s), Denies headache(s) and Denies weakness HEENT Denies change in vision, Denies dizziness, Denies headache(s), Denies hearing loss, Denies nasal congestion, Denies sinus pain, Denies sinus pressure and Denies sore throat Card Denies chest pain, Denies lightheadedness, Denies dyspnea and Denies other (palpitations) Resp Denies cough, Denies dyspnea and Denies wheezing GI Denies abdominal pain, Denies melena, Denies hematochezia, Denies change in bowel habits, Denies dyspepsia and Denies nausea Denies hematuria and Denies dysuria Musc See HPI Skin/Breast Denies rash, Denies unusual bruising and Denies wounds Neuro Denies abnormal gait, Denies dizziness, Denies headache(s), Denies memory loss, +numbness down the back of her left leg, Denies Sensory deficit (Neuro), + tingling down the back of her left leg and Denies weakness Physical exam (Primary Care) Vital Signs: Last Vital Signs Pulse 82 09/08/24 13:27 BP 156/84 H 09/08/24 13:27 Pulse Ox 97 09/08/24 13:27 Oxygen Delivery Method Room Air 09/08/24 13:27 BMI result Body Mass Index 44.5 Tobacco/Smoking Status: Tobacco use Status Tobacco use date assessed 09/08/24 09/08/24 13:31 Patient Tobacco Use Status Never used Tobacco 09/08/24 13:31 e-Cigarette/Vaping Use Never Used 09/08/24 13:31 PHQ-9: PHQ-9 Score PHQ-9: Total score 4 09/08/24 14:20 Depression Screening Interpretation: Positive Depression Screening Follow-up: Existing condition, In treatment, Community Mental Health Worker F/U and Follow-up Visit Requested Thrive Assessment: Date of Thrive Assessment Date Thrive assessed 09/08/24 09/08/24 13:31 Currently or been in a relationship where the following occur: I choose not to answer Const Other: General: no acute distress, well developed, alert and awake Nutritional Appearance: well nourished Orientation/consciousness: patient oriented x3 HENMT Head: Yes normocephalic and Yes atraumatic Ears: hearing grossly normal bilaterally and TM's normal bilaterally General nose exam: Normal external nose present and Normal nares present Mouth: Normal oral and palatal mucosa present and moist mucous membranes Eyes Pupils: Equal, round and reactive pupils present and Pupil accommodation reflex normal EOM: EOMs intact bilaterally Neck Neck: Yes normal visual inspection, Yes no lymphadenopathy Thyroid: Thyroid normal Resp Effort & Inspection: normal respiratory effort Auscultation: clear to auscultation bilaterally Cardio Rate: regular rate Rhythm: regular rhythm Heart sounds: S1 normal heart sound present, S2 normal heart sound present, no gallops, no murmurs and no rubs GI Palpation (GI): No Abdominal aortic bruit present, Soft to palpation, nontender, No hepatosplenomegaly present and No Rebound tenderness present Auscultation: normal bowel sounds General: Yes no CVA tenderness Back/Spine/Pelvis Back: no CVA tenderness Cervical Spine: cervical ROM normal and No Cervical spine tenderness Thoracic/Lumbar Spine: thoraco-lumbar ROM normal, No pain with thoraco-lumbar ROM, No thoracic spinal tenderness and No lumbar spinal tenderness OTHER: slr on right leg to 60 degrees with stiffness in the hip and slr to left leg to 40 degrees with pain down the back of left leg. Skin General: warm and dry. Normal skin color. Normal skin turgor Lesions: no lesions Nails: normal Neuro General: patient oriented x3, gait normal Cranial nerves: Yes Equal, round and reactive pupils present Cognition (Neuro): normal cognition Gait exam (Neuro): Slow antalgic gait Motor exam (neuro): 5/5 motor strength present throughout Sensory Exam: No Sensory deficit (Neuro) Deep tendon reflexes (DTR's): Right patellar reflex intensity grade: 2+ and Left patellar reflex intensity grade: 2+ Extrem General: Yes normal to inspection, No edema and No calf tenderness Psych Appearance: grossly normal Affect: normal affect Attitude: cooperative Thought process: Normal thought process present Coding Level of Care Code Est Pt Level 4 (45941) Diagnoses Low back pain radiating to left lower extremity M54.50; M79.605 Paresthesia R20.2 Type 2 diabetes mellitus without complication, without long-term current use of insulin E11.9 Diabetes mellitus type: type 2 Morbid obesity with BMI of 45.0-49.9, adult E66.01; Z68.42 Essential hypertension I10 Fibromyalgia M79.7 Additional Codes GENEVIEVE-7 Assessment Billing - GENEVIEVE-7 Assessment Tool: GENEVIEVE-7 Assessment [id number] ([id number]) PHQ-9 - 00429 - PHQ-9 Billing: Yes ([id number]) Time Spent (min) 32 Assessment & Plan Assessment & Plan (1) Low back pain radiating to left lower extremity: Code(s): M54.50 - Low back pain, unspecified; M79.605 - Pain in left leg Category: Medical Plan: Start meloxicam 15 mg daily and Solu-Medrol Dosepak Continue duloxetine 60 mg daily May consider PT therapy if pain persists (2) Paresthesia: Code(s): R20.2 - Paresthesia of skin Category: Medical Plan: Patient has a history of paresthesia, unclear this is completely new Meloxicam 15 mg daily and Solu-Medrol Dosepak ordered Discussed with patient if her pain and paresthesia persist to contact office (3) Diabetes mellitus without complication, without long-term current use of insulin: Code(s): E11.9 - Type 2 diabetes mellitus without complications Category: Medical Qualifiers: Diabetes mellitus type: type 2 Qualified Code(s): E11.9 - Type 2 diabetes mellitus without complications Plan: Reinforced low sugar/carbohydrate diet and activity as tolerated Continue Ozempic 1 mg Q weekly, metformin a 1000 mg b.i.d. and Jardiance 25 mg daily Monitor blood sugar regularly Follow up with Endocrine as scheduled (4) Morbid obesity with BMI of 45.0-49.9, adult: Code(s): E66.01 - Morbid (severe) obesity due to excess calories; Z68.42 - Body mass index [BMI] 45.0-49.9, adult Category: Medical Plan: Discussed dietary modification and activity as tolerated (5) Essential hypertension: Code(s): I10 - Essential (primary) hypertension Category: Medical Plan: Blood pressure elevated in office. Patient reports that she is in a lot of pain Reinforced low-sodium diet continue lisinopril 5 mg daily (6) Fibromyalgia: Code(s): M79.7 - Fibromyalgia Category: Medical Plan: Continue duloxetine 60 mg daily Encourage activity as tolerated Medications: New methylprednisolone (Medrol (Madhu)) PO PER PKG DIR for 6 days 21 ea 0RF meloxicam 15 mg PO DAILY 30 tabs 1RF
[2024-09-08 13:27] VITALS: BP 156/84; PULSE 82; O2SAT 97; BMI 44.5
== END 2024-09-08 14:37 | disposition home or self-care (01) ==
PROVIDERS: PCP Internal Medicine
DX: E11.9 Type 2 diabetes mellitus without complications (principal); E66.01 Morbid (severe) obesity due to excess calories; Z68.42 Body mass index [BMI] 45.0-49.9, adult; M54.50 Low back pain, unspecified; M79.605 Pain in left leg; R20.2 Paresthesia of skin; I10 Essential (primary) hypertension; M79.7 Fibromyalgia

== ENCOUNTER → 2024-09-08 13:21 | Outpatient (BNVA) | payer OTHER, SELFPAY | PROVIDERS: PCP Internal Medicine | DX: M54.50 Low back pain, unspecified (principal); M79.605 Pain in left leg; R20.2 Paresthesia of skin; E11.9 Type 2 diabetes mellitus without complications; E66.01 Morbid (severe) obesity due to excess calories; Z68.42 Body mass index [BMI] 45.0-49.9, adult; I10 Essential (primary) hypertension; M79.7 Fibromyalgia; Z71.3 Dietary counseling and surveillance | CPT/HCPCS: 96127; 99212 ==

== ENCOUNTER 2024-10-05 18:28 | Emergency (ER) | payer OTHER, SELFPAY ==
[2024-10-05 18:41] VITALS: BP 138/58; PULSE 95; RESP 18; TEMP 36.6; O2SAT 99; BMI 43.4
--- NOTE | 2024-10-05 18:49 | ED_ITS ---
HPI - Female Genitourinary General Chief complaint: Urogenital-Female Stated complaint: difficulty urinating Time Seen by Provider: 10/05/24 23:25 Source: patient Mode of arrival: ambulatory Limitations: no limitations History of Present Illness ED Provider: Dr. Veronica Gastelum HPI Narrative: Patient comes to the emergency room complaining of dysuria for 2 days. Patient denies flank pain fever or chills. When I spoke with the patient, labs had already resolved. Patient has a hemoglobin of 6.6. Patient states that she has chronic fatigue, always feels tired but now she has noted that when she goes up the stairs to her bedroom at home, she feels more short of breath. No chest pain. Patient reports that she has history of very heavy menstrual periods. Patient has had an IUD, which was inserted approximately 2 years ago. Patient states that there is no change. Patient also known to have uterine fibroids. Patient is currently menstruating. Related Data Home Medications ?Medication ?Instructions ?Recorded ?Confirmed duloxetine 60 mg capsule,delayed 60 mg PO DAILY 08/26/20 09/09/24 release blood-glucose meter (ReliOn 03/15/22 09/09/24 All-In-One Meter kit) lancets 26 gauge 03/15/22 09/09/24 estazolam 2 mg tablet 2 mg PO BEDTIME 09/13/22 09/09/24 Previous Rx's ?Medication ?Instructions ?Recorded lancets 28 gauge (FreeStyle #100 ea 07/15/21 Lancets) blood sugar diagnostic (ReliOn #100 ea 04/06/22 Prime Test Strips) vitamin A acetate 3,000 mcg 10,000 unit sublingual DAILY #90 07/04/22 (10,000 unit) sublingual tablet tabs cholecalciferol (vitamin D3) 25 25 mcg PO DAILY 90 days #90 caps 06/23/23 mcg (1,000 unit) capsule empagliflozin 25 mg tablet 25 mg PO DAILY 90 days #90 tabs 08/29/23 (Jardiance) albuterol sulfate 90 mcg/actuation 2 puff inhalation Q6H PRN 09/21/23 aerosol inhaler (Ventolin HFA) shortness of breath or wheezing #8.5 grams cetirizine 10 mg tablet (Zyrtec) 10 mg PO DAILY 90 days #90 tabs 09/21/23 fluticasone propionate 50 1 spray intranasal DAILY #9.9 mL 12/03/23 mcg/actuation nasal spray,suspension (Flonase Allergy Relief) blood sugar diagnostic (FreeStyle #100 ea 03/11/24 Lite Strips) blood-glucose meter (FreeStyle #1 ea 03/11/24 Lite Meter kit) lancets 28 gauge (FreeStyle #100 ea 03/11/24 Lancets) lisinopril 5 mg tablet 5 mg PO DAILY 90 days #90 tabs 05/04/24 bupropion HCl 150 mg 24 hr tablet, 150 mg PO QAM 90 days #90 tabs 06/03/24 extended release metformin 1,000 mg tablet 1,000 mg PO BID 90 days #180 tabs 06/11/24 guaifenesin 600 mg tablet, 600 mg PO Q12H PRN congestion 5 07/28/24 extended release 12 hr (Mucinex) days #10 tabs meloxicam 15 mg tablet 15 mg PO DAILY #30 tabs 09/08/24 methylprednisolone 4 mg tablets in See Rx Instructions PO PER PKG DIR 09/08/24 a dose pack (Medrol (Madhu)) #21 ea semaglutide 1 mg/dose (4 mg/3 mL) 1 mg (0.75 mL) subcut QWEEK 4 10/02/24 subcutaneous pen injector (Ozempic) weeks #3 mL Allergies Allergy/AdvReac Type Severity Reaction Status Date / Time horse dander [HORSE DANDER] Allergy Intermediate Rash Verified 10/05/24 18:43 mold [MOLD] Allergy Intermediate rash Verified 10/05/24 18:43 pollen extracts [POLLEN] Allergy Intermediate Rash Verified 10/05/24 18:43 trazodone AdvReac Intermediate dry mouth, Verified 10/05/24 18:43 sleepwalking GRASS Allergy Intermediate Rash Uncoded 09/09/24 08:38 Review of Systems 2 Review of Systems: Constitutional : No Weight loss, No Fever, No Chills, No Night Sweats, complaining of chronic fatigue ENT/Mouth : No Hearing loss, No Ear Pain, No Nasal Congestion, No Sinus Pain, No Hoarseness, No sore throat, No Rhinorrhea, No Swallowing Difficulty Eyes: No Eye Pain, No Swelling, No Redness, No Foreign Body, No Discharge, No Vision Changes Cardiovascular : No Chest Pain, No SOB, complaining of Dyspnea on Exertion, No Orthopnea, No Edema, No Palpitations Respiratory : No Cough, No Sputum, No Wheezing, No Smoke Exposure, No Dyspnea Gastrointestinal : No Nausea, No Vomiting, No Diarrhea, No Constipation, No abdominal Pain, No Hematochezia, No Melena Genitourinary : Complaining of menorrhagia No Dysuria, No Urinary Frequency, No Hematuria, No Urinary Incontinence, No Urgency, No Flank Pain, No Urinary Flow Changes, No Hesitancy Musculoskeletal : No joint pain, No Myalgias, No Joint Swelling Skin : No Skin Lesions, No rash Neuro : No Weakness, No Numbness, No Paresthesias, No Loss of Consciousness, No Dizziness, No Headache Psych : No Anxiety/Panic, No Depression, No SI/HI/AH/VH, No Social Issues, Heme/Lymph: No Bruising, No Bleeding,No Lymphadenopathy Endocrine : No Polyuria, No Polydipsia, No Temperature Intolerance PMFSH Past Medical History Medical History Uncontrolled type 2 diabetes mellitus with hyperglycemia Cholelithiasis Asthma RASTA on CPAP Morbid obesity Exposure to COVID-19 virus Diabetes mellitus Dysuria RASTA on CPAP Liver lesion Iron deficiency anemia Diverticulitis Impaired glucose tolerance GERD (gastroesophageal reflux disease) Insomnia Paresthesia Morbid obesity with BMI of 50.0-59.9, adult Arthralgia Edema Depression Active asthma Super obese Eczema Migraines Iron deficiency anemia RASTA (obstructive sleep apnea) Fibromyalgia Surgical History History of tonsillectomy History of tubal ligation History of appendectomy Family History Family History Father Diabetes Alzheimer disease Mother Diabetes Hypertension Maternal Grandmother Breast cancer Maternal Grandfather Prostate cancer Social History Social History Household Members: Children Housing: Apartment Alcohol intake: never Patient Tobacco Use Status: Never used Tobacco Smoked in Last 30 Days: No e-Cigarette/Vaping Use: Never Used Second Hand Smoke Exposure: No Use of substances other than those prescribed or required for medical reasons: No Advance Directives: Yes Advance Directives on File: Yes Advance Directives Date on File: 11/27/22 Do you have a plan to hurt others: No Plan Patient : No service: No Current occupational status: unemployed Cognitive needs: No Hearing needs: No Vision needs: No Physical Exam 2 Vital Signs: Vital Signs: Last Vital Signs Temp 98.3 F 10/06/24 01:10 Pulse 83 10/06/24 01:10 Resp 15 10/06/24 01:10 BP 115/53 L 10/06/24 01:10 Pulse Ox 98 10/06/24 00:33 O2 Del Method Room Air 10/06/24 00:33 BMI result Body Mass Index 43.4 Const: Other: Appearance: Alert. Oriented X3. No acute distress. Eyes: Pupils equal, round and reactive to light. ENT: Pharynx normal. Neck: Normal inspection. Neck supple. No lymph nodes noted. No crepitus CVS: Normal heart rate and rhythm. Pulses normal. Normal S1 and S2 Respiratory: No respiratory distress. Breath sounds normal. No Wheezing. No rales Abdomen: Soft and nontender. No rigidity. No distention. No CVA tenderness Skin: Skin warm and dry. Pale skin color. Normal skin turgor. Extremities: No lower extremity edema. No Lacerations. No Rash Neuro: Oriented X 3. No motor deficit. No sensory deficit. Moving all extremities. No slurred speech. CN 2 through 12 grossly intact Psych: calm, cooperative, normal affect Course Course Course Narrative: This is a Rapid Medical Examination (RME) performed by Trisha Bennett PA-C in triage. Full HPI, ROS, assessment and treatment plan per primary provider in the Main ED. 44 yo female here for eval of dysuria x2 days. no hematuria, abd pain, flank pain, N/V. Plan: labs, UA Medical Decision Making Medical Decision Making MDM Narrative: My interpretation of labs: Patient's white blood cell count 11.3 which is chronic for the patient. Patient is known to have chronic anemia but this time is 6.6. Patient states this is the 1st time that it has been this low. Hematocrit 23.8, platelets 408. I discussed with the patient that since she is symptomatic, complaining of fatigue, shortness of breath with exertion, she would benefit from a blood transfusion. Patient has never had transfusions in the past. I discussed with the patient the risks versus benefits of a blood transfusion, patient agreeable to proceed with a blood transfusion. Patient signed the consent Patient would benefit from at least 2 units of blood. I discussed with the patient that she needs to address the menorrhagia again with her OBGYN. Otherwise, she is going to continuously have anemia. We will proceed with a blood transfusion. Patient agrees with plan 02:20: Patient is tolerating well a blood transfusion. Patient may be discharged home after the 2nd unit. Patient will follow-up with her PCP and OBGYN, patient agrees with plan Differential Diagnosis Differential Diagnoses: The differential diagnosis associated with the presentation includes (Iron deficiency anemia, blood loss anemia) Admission/Observation Consideration of admission/observation: Escalation of care including admission/observation considered (Given patient's labs, observation was considered) Lab Data MDM Lab Attestation statement: I reviewed the patient's lab results. 10/05/24 19:10 10/05/24 19:10 Labs: Lab Results 10/05/24 10/05/24 Range/Units 19:10 20:36 WBC 11.3 H (4.8-10.8) X10*3/uL RBC 3.60 L (4.20-5.50) X10*6/uL Hgb 6.6 L* D (12.0-16.0) g/dl Hct 23.8 L D (37.0-47.0) % MCV 66.1 L (80.0-98.0) fL MCH 18.3 L (27.0-33.0) pg MCHC 27.7 L (31.0-35.0) g/dl RDW 20.0 H (11.0-16.0) % Plt Count 408 H (160-400) X10*3/uL MPV 8.8 L (9.4-12.3) fL Immature Gran % (Auto) 0.8 H (0.0-0.4) % Neut % (Auto) 77.0 H (45-73) % Lymph % (Auto) 14.3 L (20-40) % [place] % (Auto) 5.8 (2-11) % Eos % (Auto) 1.9 (0-4) % Baso % (Auto) 0.2 (0-2) % Lymph # (Auto) 1.6 (1.2-4.9) X10*3/uL [place] # (Auto) 0.7 (0.1-1.2) X10*3/uL Eos # (Auto) 0.2 (0.0-0.4) X10*3/uL Baso # (Auto) 0.0 (0.0-0.2) X10*3/uL Abs Immat Gran (auto) 0.09 H (0.00-0.03) X10*3/uL Absolute Neuts (auto) 8.7 H (2.0-8.3) x10*3/uL Absolute Nucleated RBC 0.000 (0.0-0.012) X10*3/uL Nucleated RBC % (auto) 0.0 (0.0-0.2) /100WBC Sodium 140 (135-145) mmol/L Potassium 3.8 (3.3-5.1) mmol/L Chloride 108 (96-108) mmol/L Carbon Dioxide 25 (22-29) mmol/L Anion Gap 11 L (12-20) BUN 10 (9-16) mg/dL Creatinine 0.73 (0.5-1.4) mg/dL Estim Creat Clear Calc 116.5 Estimated GFR > 60 Random Glucose 167 H (60-115) mg/dL Calcium 8.5 (8.4-10.2) mg/dL Total Bilirubin 0.2 (0.0-1.0) mg/dL AST 13 (5-31) U/L ALT 8 (0-31) U/L Alkaline Phosphatase 88 (39-117) U/L Total Protein 6.7 (6.5-8.0) g/dL Albumin 3.6 (3.5-5.0) g/dL Urine Color Yellow Urine Appearance Clear Urine pH 5.5 (5.0-9.0) Ur Specific [place] 1.020 (1.005-1.025) Urine Protein Negative (Neg-Trace) mg/dL Urine Glucose (UA) Negative (Negative) mg/dL Urine Ketones Negative (Negative) mg/dL Urine Blood Moderate (2+) H (Negative) Urine Nitrite Negative (Negative) Ur Leukocyte Esterase Negative (Negative) Urine RBC 3-5 H (0-2) /HPF Urine WBC 0-5 (0-5) /HPF Ur Squamous Epith Cells 0-2 (0-2) /HPF Urine Bacteria None Seen (None Seen) Hyaline Casts 0-2 (0-2) /LPF Blood Type O Positive Antibody Screen NEGATIVE Crossmatch See Detail Critical Care Time Critical Care Time Critical Care Time: Yes Total Critical Care Time: 60 Attestation: I have personally provided critical care time. Time includes review of lab data, radiology results, discussion with consultants, and monitoring for potential decompensation. Intervention performed as documented. Discharge Plan Discharge Clinical Impression: Anemia Patient Disposition: Home, Self-Care Instructions: Anemia (ED) Additional Instructions: Please follow-up with your primary care physician tomorrow. If you have any worsening or new symptoms, please return to the emergency room or call 911 Prescriptions: No Action (DME) lancets [FreeStyle Lancets] 28 gauge misc See Rx Instructions .Route Qty: 100 3RF Rx Instructions: Use 1 lancet once a day (DME) ReliOn Prime Test Strips Strip See Rx Instructions .Route Qty: 100 1RF Rx Instructions: As directed vitamin A acetate 10,000 unit tablet, sublingual 10,000 unit sublingual DAILY Qty: 90 1RF cholecalciferol (vitamin D3) 25 mcg (1,000 unit) capsule 25 mcg PO DAILY 90 Days Qty: 90 1RF Jardiance 25 mg tablet 25 mg PO DAILY 90 Days Qty: 90 2RF cetirizine [Zyrtec] 10 mg tablet 10 mg PO DAILY 90 Days Qty: 90 1RF albuterol sulfate [Ventolin HFA] 90 mcg/actuation HFA aerosol inhaler 2 puff inhalation Q6H PRN (Reason: shortness of breath or wheezing) Qty: 8.5 2RF (DME) FreeStyle Lite Strips Strip See Rx Instructions .ROUTE .MEDSUPPLY Qty: 100 3RF Rx Instructions: use daily As directed to check blood sugars for diabetes (DME) lancets [FreeStyle Lancets] 28 gauge misc See Rx Instructions .ROUTE .MEDSUPPLY Qty: 100 3RF Rx Instructions: Use daily As directed to check blood sugar (DME) blood-glucose meter [FreeStyle Lite Meter] Kit See Rx Instructions .ROUTE .MEDSUPPLY Qty: 1 0RF Rx Instructions: Use daily As directed to check blood glucose lisinopril 5 mg tablet 5 mg PO DAILY 90 Days Qty: 90 1RF bupropion HCl 150 mg tablet extended release 24 hr 150 mg PO QAM 90 Days Qty: 90 1RF metformin 1,000 mg tablet 1,000 mg PO BID 90 Days Qty: 180 1RF Ozempic 1 mg/dose (4 mg/3 mL) pen injector 1 mg subcut QWEEK 28 Days Qty: 3 0RF duloxetine 60 mg capsule,delayed release(DR/EC) 60 mg PO DAILY fluticasone propionate [Flonase Allergy Relief] 50 mcg/actuation spray,suspension 1 spray intranasal DAILY Qty: 9.9 1RF Rx Instructions: administer into each nostril estazolam 2 mg tablet 2 mg PO BEDTIME (DME) blood-glucose meter [ReliOn All-In-One Meter] Kit See Rx Instructions .Route Rx Instructions: As directed (DME) lancets 26 gauge misc See Rx Instructions .Route Rx Instructions: As directed guaifenesin [Mucinex] 600 mg tablet extended release 12hr 600 mg PO Q12H PRN (Reason: congestion) 5 Days Qty: 10 0RF methylprednisolone [Medrol (Madhu)] 4 mg tablets,dose pack See Rx Instructions PO PER PKG DIR Qty: 21 0RF Rx Instructions: PO PER PKG DIR for 6 days meloxicam 15 mg tablet 15 mg PO DAILY Qty: 30 1RF Print Language: [place]
[2024-10-05 19:14] LABS: MANUAL DIFF FLAG NO
[2024-10-05 19:15] LABS: Basophils Percent Auto 0.2 % (0-2); Eosinophils Absolute Auto 0.2 X10*3/uL (0.0-0.4); Eosinophils Percent Auto 1.9 % (0-4); Hematocrit 23.8 % (37.0-47.0); Imm Gran Abs Auto 0.09 X10*3/uL (0.00-0.03); Imm Gran Pct Auto 0.8 % (0.0-0.4); Lymphocytes Absolute Auto 1.6 X10*3/uL (1.2-4.9); Lymphocytes Percent Auto 14.3 % (20-40); Mean Corpuscular HGB Conc 27.7 g/dl (31.0-35.0); Mean Corpuscular Hemoglobin 18.3 pg (27.0-33.0); Mean Corpuscular Volume 66.1 fL (80.0-98.0); Mean Platelet Volume 8.8 fL (9.4-12.3); Monocytes Absolute Auto 0.7 X10*3/uL (0.1-1.2); Monocytes Percent Auto 5.8 % (2-11); Neutrophils Absolute Auto 8.7 x10*3/uL (2.0-8.3); Platelet Count 408 X10*3/uL (160-400); White Blood Count 11.3 X10*3/uL (4.8-10.8)
[2024-10-05 19:18] LABS: Hemoglobin 6.6 g/dl (12.0-16.0)
--- NOTE | 2024-10-05 19:34 | PC.NURSE ---
critical hgb reported to ISAAC Salgado and Charge nurse Otto
[2024-10-05 19:39] LABS: Alanine Aminotransferase 8 U/L (0-31); Albumin Level 3.6 g/dL (3.5-5.0); Alkaline Phosphatase 88 U/L (39-117); Anion Gap 11 (12-20); Aspartate Amino Transferase 13 U/L (5-31); Bilirubin Total 0.2 mg/dL (0.0-1.0); Blood Urea Nitrogen 10 mg/dL (9-16); Calcium 8.5 mg/dL (8.4-10.2); Carbon Dioxide 25 mmol/L (22-29); Chloride 108 mmol/L (96-108); Creatinine Clr Calc Pharmacy 116.5; Estimated Glomerular Filt Rate > 60; Glucose Random 167 mg/dL (60-115); Potassium 3.8 mmol/L (3.3-5.1); Sodium 140 mmol/L (135-145); Total Protein 6.7 g/dL (6.5-8.0)
--- NOTE | 2024-10-05 19:50 | PC.NURSE ---
pt placed into ED bed 1. changed into gown. MD Gastelum aware of Hgb.
[2024-10-05 20:00] VITALS: BP 124/61; PULSE 89; O2SAT 98
[2024-10-05 20:46] LABS: Appearance Urine Clear; Color Urine Yellow; Glucose Urine UA Negative (Negative); Leukocyte Esterase Urine Negative (Negative); Nitrite Urine Negative (Negative); PH 5.5 (5.0-9.0); UMIC TRIGGER UACC YES; Urine Blood Moderate (2+) (Negative); Urine Ketones Negative (Negative); Urine Protein Negative (Neg-Trace)
[2024-10-05 20:55] LABS: Bacteria Urine None Seen (None Seen); Hyaline Casts Urine 0-2 /LPF (0-2); Squamous Epithelial Cell Urine 0-2 /HPF (0-2); WBC Urine 0-5 /HPF (0-5)
[2024-10-05 21:44] VITALS: BP 127/61; PULSE 85; RESP 16; TEMP 36.6; O2SAT 100
[2024-10-06] VITALS (10 sets, daily range): BP systolic 94–127; BP diastolic 50–64; PULSE 82–90; RESP 15–20; TEMP 36.4–36.9; O2SAT 96–98
--- NOTE | 2024-10-06 01:33 | PC.NURSE ---
pt tolerating transfusion well. 20g IV bilateral forearms
== END 2024-10-06 07:20 | disposition home or self-care (01) ==
PROVIDERS: Physician Assistant Medical; Emergency Provider Emergency Medicine; PCP Internal Medicine
DX: D64.9 Anemia, unspecified (principal); R53.83 Other fatigue; R06.02 Shortness of breath; E11.9 Type 2 diabetes mellitus without complications; J45.909 Unspecified asthma, uncomplicated; Z79.899 Other long term (current) drug therapy
CPT/HCPCS: 36415; 36430; 80053; 81001; 85025; 86850; 86900; 86901; 86923; 99284; 99285; P9016

== ENCOUNTER 2024-10-29 08:04 | Outpatient (AMB) | payer OTHER, SELFPAY ==
--- NOTE | 2024-10-29 08:06 | A.OFFVIS_ITS ---
Vital Signs 10/29/24 08:07 Height 5 ft 3 in Weight 245 lb BMI 43.4 BP 112/64 Intake Visit Reasons: IUD Check Intake Note: pt c/o heavy longer periods with Mirena inserted 05/03/23 Sql Data Architect Required: Yes Sql Data Architect Language: Geriatric Social Work Professor Name: Angelina [id number] Information Interpreted: non-clinical & clinical Rn Imcu: Rn Imcu Present (Guerita) Allergies horse dander [HORSE DANDER] Allergy (Intermediate, Verified 10/29/24 08:07) Rash mold [MOLD] Allergy (Intermediate, Verified 10/29/24 08:07) rash pollen extracts [POLLEN] Allergy (Intermediate, Verified 10/29/24 08:07) Rash trazodone Adverse Reaction (Intermediate, Verified 10/29/24 08:07) dry mouth, sleepwalking GRASS Allergy (Intermediate, Uncoded 09/09/24 08:38) Rash Is last menstrual period known: Yes Last menstrual period: 10/26/24 HPI Comments Details: Patient is here for a follow up on her menses. Seen in the ED for HMB 10/05/24, had 2uPRBC. Reports heavy bleeding now. She denies any shortness of breath, dizziness or lightheadedness. Unable to tolerate oral iron supplements and required iron infusions in the past. CT scan March 2024 revealed a low- lying IUD position. She started heavy menstrual bleeding shortly after that time. [facility] Medical History (Updated 10/29/24 @ 11:41 by Domitila Cruz CNM) IUD (intrauterine device) in place Uncontrolled type 2 diabetes mellitus with hyperglycemia Cholelithiasis Asthma RASTA on CPAP Morbid obesity Exposure to COVID-19 virus Diabetes mellitus Dysuria RASTA on CPAP Liver lesion Iron deficiency anemia Diverticulitis Impaired glucose tolerance GERD (gastroesophageal reflux disease) Insomnia Paresthesia Morbid obesity with BMI of 50.0-59.9, adult Arthralgia Edema Depression Active asthma Super obese Eczema Migraines Iron deficiency anemia RASTA (obstructive sleep apnea) Fibromyalgia Surgical History History of tonsillectomy History of tubal ligation History of appendectomy Family History Father Diabetes Alzheimer disease Mother Diabetes Hypertension Maternal Grandmother Breast cancer Maternal Grandfather Prostate cancer Social History Household Members: Children Housing: Apartment Alcohol intake: never Patient Tobacco Use Status: Never used Tobacco e-Cigarette/Vaping Use: Never Used Second Hand Smoke Exposure: No Advance Directives Date on File: 11/27/22 service: No Current occupational status: unemployed Cognitive needs: No Hearing needs: No Vision needs: No Female Reproductive History Menstrual Age of Menarche: 10 Date of last menstrual period: 10/26/24 Review of Systems Const All systems reviewed & are unremarkable except as noted in HPI and below Physical Exam Vital Signs: Last Vital Signs BP 112/64 10/29/24 08:07 BMI result Body Mass Index 43.4 Const General: cooperative, healthy appearing and no acute distress Orientation/consciousness: patient oriented x3 GI Inspection: Yes normal to inspection Palpation (GI): Soft to palpation and Other GI palpation findings present (Nontender) Rectal Exam - Female: visual inspection normal General: Yes bladder normal to palpation External Female Exam: normal appearance of the urethra Speculum Exam - Vagina: normal appearance of the vagina, normal palpation, normal vaginal discharge and vaginal bleeding (Moderate with clots) Speculum Exam - Cervix: normal appearance of the cervix, normal palpation and Other cervical findings present (IUD tip palpable at the os) Bimanual exam- vagina & uterus: normal bimanual exam, normal palpation, uterine size normal, bladder normal to palpation, normal palpation, uterine shape normal and non-tender Bimanual Exam- Adnexa, other: normal adnexae OB/external & speculum: vaginal bleeding (Moderate with clots) Neuro General: patient oriented x3 Office Procedures IUD Insert/Removal Details Details: The patient is here today for a Mirena IUD removal/ reinsertion. She was counseled on the side effects including: menstrual cycle changes, pain, infection, bleeding, or expulsion. A urine test was completed and was negative. Discussed: Current recommendations for pap smears per ASCCP guidelines. Breast awareness and periodic breast exams. Maintain a healthy lifestyle including a well balanced diet and routine exercise. Patient verbalizes understanding and agrees to the plan of care. She was given opportunity to ask questions and all questions were answered to the best of my ability. RTO in one year for annual sheep sorter examination. This note is constructed using voice recognition software. While every effort has been made to ensure accuracy, manager operations and procurement errors may have been included. She was consented for the IUD insertion and has signed the consent form. All questions were answered. The patient was placed in the dorsal lithotomy position. A speculum was inserted vaginally and the cervix and strings were visualized at the os. A ring forcep was utilized, and the patient was asked to give a deep cough while the strings were grasped and gently tugged at the same time, removing the IUD device intact. A single toothed tenaculum was applied to the cervix for stabilization, and the uterus was sounded to 9cm. The device was inserted and released with a gentle motion. Bleeding from the tenaculum sites and the procedure were minimal. The strings were trimmed to 3cm. All of the equipment was removed and the bimanual was normal, no tip was palpable at the cervical os. The patient tolerated the procedure well and left the office in good condition. Post IUD Insertion Care: There may be some post insertion bleeding for several days that is usually light and can turn to a light brown or pink in color. Mild cramping may occur. Nothing in the vagina including: tampons, douching or intimacy for several days. You may take an over the counter mild analgesia like Tylenol or Advil (if no allergies), per the manufacturers recommendations on dosing and frequency. Follow the directions completely. Call the office if any: fever (over 100.4), flu like symptoms, abdominal pain, worsening cramping not resolved with over the counter medications, foul smelling vaginal odor, signs of infected appearing discharge, or heavy bleeding. Use a condom for a back up method if indicated for 7 days. Always use a condom for STI prevention; IUD's are not protective against STD's. Return to the office in 4 weeks for IUD recheck. This note is constructed using voice recognition software. While every effort has been made to ensure accuracy, manager operations and procurement errors may have been included. [id number] Insertion Procedure code (CPT) selection complete Office Meds Mirena 21 mcg/24 hr (up to 8 years) 52 mg intrauterine device Performing Provider: Domitila Cruz CNM Performing Location: [facility] Administered by: ANAND Calixto on 10/29/24 09:03 Dose Route Admin Location Dispensed Lot Number Expiration Date NDC Machine Welt Butter 1 device intrauterine 1 device [id number] 12/26/26 85714-924-63 [employer] Results AMB Urinalysis, Automated UA Leukoctes 0.5 Valentin/uL Last Edit by ANAND Calixto on 10/29/24 08:3 1 UA Nitrite Negative Last Edit by ANAND Calixto on 10/29/24 08:31 UA Urobilinogen 0 mg/dL Last Edit by ANAND Calixto on 10/29/24 08:3 1 UA Protein 1 mg/dL Last Edit by ANAND Calixto on 10/29/24 08:31 UA pH 5.5 Last Edit by ANAND Calixto on 10/29/24 08:31 UA Blood 3 Michi/uL Last Edit by ANAND Calixto on 10/29/24 08:31 UA Specific [place] 1.020 Last Edit by ANAND Calixto on 10/29/24 08:31 UA Ketone Negative Last Edit by ANAND Calixto on 10/29/24 08:31 UA Bilirubin 0 mg/dL Last Edit by ANAND Calixto on 10/29/24 08:31 UA Glucose 3 mg/dL Last Edit by ANAND Calixto on 10/29/24 08:31 AMB Test Urine AMB Test Urine Negative Last Edit by ANAND Calixto on 10/29/24 08:31 Results Reviewed Results Reviewed: Laboratory Last Values Urine pH (Auto) 5.5 10/29/24 08:29 Specific [place] (Auto) 1.020 10/29/24 08:29 Urine Protein (Auto) 1 mg/dL 10/29/24 08:29 Glucose (UA)(Auto) 3 mg/dL 10/29/24 08:29 Urine Ketones (Auto) Negative 10/29/24 08:29 Urine Blood (Auto) 3 Michi/uL 10/29/24 08:29 Urine Nitrite (Auto) Negative 10/29/24 08:29 Urine Bilirubin (Auto) 0 mg/dL 10/29/24 08:29 Urine Urobilinogen (Auto) 0 mg/dL 10/29/24 08:29 Leukocyte Esterase (Auto) 0.5 Valentin/uL 10/29/24 08:29 Tst Clinic Negative 10/29/24 08:29 Assessment & Plan Assessment & Plan (1) Menometrorrhagia: Code(s): N92.1 - Excessive and frequent menstruation with irregular cycle Category: Medical Plan: Plan stat CBC, follow up pending results for plan of care. Total time I personally spent on visit and management today: ?15 minutes. Time spent included review of pertinent office notes in the electronic health record; review of laboratory and imaging results; review of personal family medical history; performing physical exam; discussing diagnosis and plan of care with the patient; documenting the encounter in the EMR. (2) Remove/insert IUD: Code(s): Z30.433 - Encounter for removal and reinsertion of intrauterine contraceptive device Plan: See procedure notes. (3) Anemia: Code(s): D64.9 - Anemia, unspecified Category: Medical Qualifiers: Anemia type: unspecified type Qualified Code(s): D64.9 - Anemia, unspecified Plan: Plan referral to Hematology for iron infusions. Plan IUD replaced. See procedure notes. GC chlamydia and BV panel obtained. UPT negative. The patient expressed understanding and agreement with the plan of care. All of her questions and concerns were addressed to the best of my ability. This note is constructed using voice recognition software. While every effort has been made to ensure accuracy, manager operations and procurement errors may have been included. Orders: Orders AMB Urinalysis Automated Today Z13.9 - Encounter for screening, unspecified Complete Blood Count no Diff Today N92.1 - Excessive and frequent menstruation with irregular cycle AMB IUD Insertion/Removal - Practice Supplied Today N92.1 - Excessive and frequent menstruation with irregular cycle, Z30.430 - Encounter for insertion of intrauterine contraceptive device AMB HCG Urine Test Today N93.9 - Abnormal uterine and vaginal bleeding, unspecified Bacterial Vaginosis Panel Today N92.1 - Excessive and frequent menstruation with irregular cycle CT NG by PCR Today N92.1 - Excessive and frequent menstruation with irregular cycle Referrals Hematology & Oncology Referral D64.9 - Anemia, unspecified Coding Level of Care Code Est Pt Level 2 (41203) Procedure Only Diagnoses Menometrorrhagia N92.1 Remove/insert IUD Z30.433 Anemia, unspecified type D64.9 Anemia type: unspecified type CPT Codes Details - CPT: 78828-VZU Insertion ([id number])
[2024-10-29 08:07] VITALS: BP 112/64; BMI 43.4
== END 2024-10-29 09:08 | disposition home or self-care (01) ==
LOC: HO.HWS 08:05
PROVIDERS: PCP Internal Medicine; Visit Provider Advanced Practice Midwife
DX: N92.1 Excessive and frequent menstruation with irregular cycle (principal); D64.9 Anemia, unspecified; N93.9 Abnormal uterine and vaginal bleeding, unspecified; Z30.433 Encounter for removal and reinsertion of intrauterine contraceptive device
CPT/HCPCS: 58300; 58301; 99213

== ENCOUNTER 2024-10-29 08:04 | Outpatient (REF) | payer OTHER, SELFPAY | END 2024-10-29 08:05 | disposition home or self-care (01) | LOC: HO.LAB 08:04 | PROVIDERS: PCP Internal Medicine; Visit Provider Advanced Practice Midwife | DX: Z30.433 Encounter for removal and reinsertion of intrauterine contraceptive device (principal); T83.32XA Displacement of intrauterine contraceptive device, initial encounter; N92.1 Excessive and frequent menstruation with irregular cycle; N93.9 Abnormal uterine and vaginal bleeding, unspecified; D64.9 Anemia, unspecified | CPT/HCPCS: 58300; 58301; 81003; 81025; 99212; J7298 ==

== ENCOUNTER 2024-10-29 08:56 | Outpatient (REF) | payer OTHER, SELFPAY ==
[2024-10-29 09:49] LABS: Hematocrit 29.6 % (37.0-47.0); Hemoglobin 8.6 g/dl (12.0-16.0); Mean Corpuscular HGB Conc 29.1 g/dl (31.0-35.0); Mean Corpuscular Hemoglobin 20.7 pg (27.0-33.0); Mean Corpuscular Volume 71.2 fL (80.0-98.0); Mean Platelet Volume 8.8 fL (9.4-12.3); Platelet Count 386 X10*3/uL (160-400); Red Blood Count 4.16 X10*6/uL (4.20-5.50); Red Cell Distribution Width 22.6 % (11.0-16.0); White Blood Count 12.5 X10*3/uL (4.8-10.8)
[2024-10-30 02:39] LABS: CT PCR NOT DETECTED (Not Detect.); NG PCR NOT DETECTED (Not Detect.)
[2024-10-30 11:55] LABS: Bacterial Vaginosis PCR NEGATIVE (Negative); Candida Group PCR NOT DETECTED (Not Detect); Candida glab krusei PCR NOT DETECTED (Not Detect); Trichomonas vaginalis PCR NOT DETECTED (Not Detect)
== END 2024-10-29 08:57 | disposition home or self-care (01) ==
LOC: HO.LNP 08:56
PROVIDERS: Visit Provider Advanced Practice Midwife
DX: N92.1 Excessive and frequent menstruation with irregular cycle (principal)
CPT/HCPCS: 81515; 85027; 87491; 87591

== ENCOUNTER 2025-01-27 11:58 | Outpatient (REF) | payer OTHER, SELFPAY ==
[2025-01-27 13:46] LABS: Hematocrit 27.9 % (37.0-47.0); Hemoglobin 8.1 g/dl (12.0-16.0); Mean Corpuscular HGB Conc 29.0 g/dl (31.0-35.0); Mean Corpuscular Hemoglobin 21.4 pg (27.0-33.0); Mean Corpuscular Volume 73.6 fL (80.0-98.0); NRBC Abs Auto 0.000 X10*3/uL (0.0-0.012); NRBC Pct Auto 0.0 /100WBC (0.0-0.2); Platelet Count 397 X10*3/uL (160-400); Red Blood Count 3.79 X10*6/uL (4.20-5.50); White Blood Count 12.8 X10*3/uL (4.8-10.8)
[2025-01-27 14:34] LABS: Thyroid Stimulating Hormone 0.63 uIU/mL (0.32-4.0)
[2025-01-27 20:48] LABS: Bacterial Vaginosis PCR NEGATIVE (Negative); Candida Group PCR NOT DETECTED (Not Detect); Candida glab krusei PCR NOT DETECTED (Not Detect); Trichomonas vaginalis PCR NOT DETECTED (Not Detect)
[2025-01-27 22:38] LABS: CT PCR NOT DETECTED (Not Detect.); NG PCR NOT DETECTED (Not Detect.)
== END 2025-01-27 11:59 | disposition home or self-care (01) ==
LOC: HO.LAB 11:58
PROVIDERS: PCP Internal Medicine; Visit Provider Advanced Practice Midwife
DX: Z30.431 Encounter for routine checking of intrauterine contraceptive device (principal); N92.1 Excessive and frequent menstruation with irregular cycle
CPT/HCPCS: 36415; 81025; 81515; 84443; 85027; 87491; 87591; 99212

== ENCOUNTER 2025-01-27 11:58 | Outpatient (AMB) | payer OTHER, SELFPAY ==
[2025-01-27 12:01] VITALS: BP 118/68; BMI 43.9
--- NOTE | 2025-01-27 12:01 | A.OFFVIS_ITS ---
Vital Signs 01/27/25 12:01 Height 5 ft 3 in Weight 248 lb BMI 43.9 BP 118/68 Blood Pressure Location Rt brachial Position Sitting Intake Visit Reasons: IUD check Oral Communication Instructor: Oral Communication Instructor Present (rossy) Allergies horse dander (HORSE DANDER) Allergy (Intermediate, Verified 10/29/24 08:07) Rash mold (MOLD) Allergy (Intermediate, Verified 10/29/24 08:07) rash pollen extracts (POLLEN) Allergy (Intermediate, Verified 10/29/24 08:07) Rash trazodone Adverse Reaction (Intermediate, Verified 10/29/24 08:07) dry mouth, sleepwalking GRASS Allergy (Intermediate, Uncoded 09/09/24 08:38) Rash Do you need a note to return to daycare/school/sports/work: No HPI Comments Details: Patient is here today with a history of prolonged bleeding in November (20 days). She reports random pelvic cramping. History of anemia followed at Hematology. [facility] Medical History IUD surveillance Irregular bleeding IUD (intrauterine device) in place Uncontrolled type 2 diabetes mellitus with hyperglycemia Cholelithiasis Asthma RASTA on CPAP Morbid obesity Exposure to COVID-19 virus Diabetes mellitus Dysuria RASTA on CPAP Liver lesion Iron deficiency anemia Diverticulitis Impaired glucose tolerance GERD (gastroesophageal reflux disease) Insomnia Paresthesia Morbid obesity with BMI of 50.0-59.9, adult Arthralgia Edema Depression Active asthma Super obese Eczema Migraines Iron deficiency anemia RASTA (obstructive sleep apnea) Fibromyalgia Surgical History History of tonsillectomy History of tubal ligation History of appendectomy Family History Father Diabetes Alzheimer disease Mother Diabetes Hypertension Maternal Grandmother Breast cancer Maternal Grandfather Prostate cancer Social History Household Members: Children Housing: Apartment Alcohol intake: never Patient Tobacco Use Status: Never used Tobacco e-Cigarette/Vaping Use: Never Used Second Hand Smoke Exposure: No Advance Directives Date on File: 11/27/22 service: No Current occupational status: unemployed Cognitive needs: No Hearing needs: No Vision needs: No Female Reproductive History Menstrual Age of Menarche: 10 Review of Systems Const All systems reviewed & are unremarkable except as noted in HPI and below Physical Exam Vital Signs: Last Vital Signs BP 118/68 01/27/25 12:01 BMI result Body Mass Index 43.9 Const General: cooperative, healthy appearing and no acute distress Orientation/consciousness: patient oriented x3 GI Inspection: Yes normal to inspection Palpation (GI): Soft to palpation and Other GI palpation findings present (Nontender) Rectal Exam - Female: visual inspection normal General: Yes bladder normal to palpation External Female Exam: normal appearance of the urethra Speculum Exam - Vagina: normal appearance of the vagina, normal palpation, normal vaginal discharge and vaginal bleeding (Small amount) Speculum Exam - Cervix: normal appearance of the cervix, normal palpation and Other cervical findings present (IUD strings present at the os) Bimanual exam- vagina & uterus: normal bimanual exam, normal palpation, uterine size normal, bladder normal to palpation, normal palpation, uterine shape normal and non-tender Bimanual Exam- Adnexa, other: normal adnexae OB/external & speculum: vaginal bleeding (Small amount) Neuro General: patient oriented x3 Results AMB Test Urine AMB Test Urine Negative Last Edit by Rossy Posada LPN on 12:43 Results Reviewed Results Reviewed: Laboratory Last Values Tst Clinic Negative 01/27/25 12:42 Assessment & Plan Assessment & Plan (1) Irregular bleeding: Code(s): N92.6 - Irregular menstruation, unspecified Category: Medical Plan: See notes below. (2) IUD surveillance: Code(s): Z30.431 - Encounter for routine checking of intrauterine contraceptive device Category: Medical Plan Plan chlamydia and BV panel. UPT is negative. Pelvic ultrasound ordered. CBC and TSH ordered. Advised to hydrate well and to call if there is any symptoms of shortness of breath, lightheaded dizziness feeling of syncope to be seen in the emergency room immediately. Await results for final plan of care. Follow up in person for test results. The patient expressed understanding and agreement with the plan of care. All of her questions and concerns were addressed to the best of my ability. This note is constructed using voice recognition software. While every effort has been made to ensure accuracy, court recorder errors may have been included. Orders: Orders US pelvic and transvaginal Today N92.6 - Irregular menstruation, unspecified, Z30.431 - Encounter for routine checking of intrauterine contraceptive device CT NG by PCR Vag/Cerv Today N92.6 - Irregular menstruation, unspecified Complete Blood Count no Diff Today N92.6 - Irregular menstruation, unspecified Thyroid Stimulating Hormone Today N92.1 - Excessive and frequent menstruation with irregular cycle Bacterial Vaginosis Panel Today N92.6 - Irregular menstruation, unspecified AMB HCG Urine Test Today N92.6 - Irregular menstruation, unspecified Coding Level of Care Code Est Pt Level 3 (63408) Diagnoses Irregular bleeding N92.6 IUD surveillance Z30.431
== END 2025-01-27 12:29 | disposition home or self-care (01) ==
LOC: HO.HWS 11:58
PROVIDERS: PCP Internal Medicine; Visit Provider Advanced Practice Midwife
DX: N92.6 Irregular menstruation, unspecified (principal); Z30.431 Encounter for routine checking of intrauterine contraceptive device
CPT/HCPCS: 99213

== ENCOUNTER 2025-02-23 13:55 | Outpatient (REF) | payer OTHER, SELFPAY ==
--- NOTE | ~2025-02-23 | US_ITS ---
CLINICAL HISTORY: N92.6 - Irregular menstruation, unspecified Transabdominal and transvaginal pelvic ultrasound Comparison: 04/24/2023, CT 04/10/2024 Findings: Uterus 13.2 x 7.3 x 12.0 cm. Endometrium not visualized. Multiple uterine fibroids are identified. Largest measures 4.3 x 5.6 cm. This has increased in size since previous study. New 3.5 x 3.1 cm fibroid noted. Remaining fibroids are unchanged. No significant free fluid. IUD in lower uterine segment near cervix. This is unchanged from prior CT. Right ovary is not visualized. Left ovary 2.5 x 1.1 x 1.8 cm. No focal abnormality. Impression: Multiple uterine fibroids as above No other significant abnormality This document has been electronically signed by: David Salinas MD on 02/23/2025 21:22:55
== END 2025-02-23 13:56 | disposition home or self-care (01) ==
LOC: HO.HMGCX 13:55
PROVIDERS: PCP Internal Medicine; Visit Provider Advanced Practice Midwife
DX: N92.6 Irregular menstruation, unspecified (principal); Z30.431 Encounter for routine checking of intrauterine contraceptive device
CPT/HCPCS: 76830; 76856

== ENCOUNTER → 2025-02-23 14:03 | Outpatient (BNV) | payer OTHER, SELFPAY | PROVIDERS: PCP Internal Medicine; Visit Provider Radiology Diagnostic Radiology | DX: D25.9 Leiomyoma of uterus, unspecified (principal) | CPT/HCPCS: 76830; 76856 ==

== ENCOUNTER 2025-03-10 13:53 | Outpatient (AMB) | payer OTHER, SELFPAY ==
--- NOTE | 2025-03-10 13:54 | A.OFFVIS_ITS ---
Intake Visit Reasons: Ultrasound follow up Logging Assistant Required: Yes Logging Assistant Language: Windows Migration Technician Services: Logging Assistant Present (in office) Logging Assistant Name: ANAND Urbano Information Interpreted: non-clinical & clinical Allergies horse dander (HORSE DANDER) Allergy (Intermediate, Verified 10/29/24 08:07) Rash mold (MOLD) Allergy (Intermediate, Verified 10/29/24 08:07) rash pollen extracts (POLLEN) Allergy (Intermediate, Verified 10/29/24 08:07) Rash trazodone Adverse Reaction (Intermediate, Verified 10/29/24 08:07) dry mouth, sleepwalking GRASS Allergy (Intermediate, Uncoded 09/09/24 08:38) Rash HPI Comments Details: Tele Health Video Visit Total time I personally spent on visit and management today: 26 minutes. Time spent included review of pertinent office notes in the electronic health record; review of laboratory and imaging results; review of personal family medical history; discussing diagnosis and plan of care with the patient; documenting the encounter in the EMR. Patient presents to discuss: Ultrasound findings, history of fibroids. Menses heavier at times 3/5-6d. She does not feel any changes with her IUD strings. IUD replaced 10/2024 due to low lying (was in placed for two years). COUNT INCLUDES THE [facility] Medical History IUD surveillance Irregular bleeding IUD (intrauterine device) in place Uncontrolled type 2 diabetes mellitus with hyperglycemia Cholelithiasis Asthma RASTA on CPAP Morbid obesity Exposure to COVID-19 virus Diabetes mellitus Dysuria RASTA on CPAP Liver lesion Iron deficiency anemia Diverticulitis Impaired glucose tolerance GERD (gastroesophageal reflux disease) Insomnia Paresthesia Morbid obesity with BMI of 50.0-59.9, adult Arthralgia Edema Depression Active asthma Super obese Eczema Migraines Iron deficiency anemia RASTA (obstructive sleep apnea) Fibromyalgia Surgical History History of tonsillectomy History of tubal ligation History of appendectomy Family History Father Diabetes Alzheimer disease Mother Diabetes Hypertension Maternal Grandmother Breast cancer Maternal Grandfather Prostate cancer Social History Household Members: Children Housing: Apartment Alcohol intake: never Patient Tobacco Use Status: Never used Tobacco e-Cigarette/Vaping Use: Never Used Second Hand Smoke Exposure: No Advance Directives Date on File: 11/27/22 service: No Current occupational status: unemployed Cognitive needs: No Hearing needs: No Vision needs: No Female Reproductive History Menstrual Age of Menarche: 10 Telehealth Telehealth Telehealth Platform: [employer] Location of provider rendering services: practice address Location of patient: address on file Patient Identification confirmed using: Name, : Yes Telehealth method: video Patient verbally consented to treatment: Yes Patient verbally consented to billing insurance company: Yes Patient informed of any privacy concerns related to visit: Yes Results Reviewed Results Reviewed: [facility] [place] [id number] Ultrasound Report Signed Patient: Miryam Salazar MR#: [id number] : 1980 Acct:[id number] Age/Sex: 44 / F ADM Date: 02/23/25 [facility] Attending Dr: Domitila Cruz CNM Ordering Physician: Domitila Cruz CNM Date of Service: 02/23/25 Procedure(s): US pelvic and transvaginal Accession Number(s): [id number] cc: Domitila Cruz CNM; Maribell West MD~ CLINICAL HISTORY: N92.6 - Irregular menstruation, unspecified Transabdominal and transvaginal pelvic ultrasound Comparison: 04/24/2023, CT 04/10/2024 Findings: Uterus 13.2 x 7.3 x 12.0 cm. Endometrium not visualized. Multiple uterine fibroids are identified. Largest measures 4.3 x 5.6 cm. This has increased in size since previous study. New 3.5 x 3.1 cm fibroid noted. Remaining fibroids are unchanged. No significant free fluid. IUD in lower uterine segment near cervix. This is unchanged from prior CT. Right ovary is not visualized. Left ovary 2.5 x 1.1 x 1.8 cm. No focal abnormality. Impression: Multiple uterine fibroids as above No other significant abnormality This document has been electronically signed by: David Salinas MD on 02/23/2025 21:22:55 Dictated By: David Salinas MD Signed By: <Electronically signed by David Salinas MD in OV> 02/23/252122 DD/ 21 TD/TT: 02/23/252121 Tank Setter Helper: Assessment & Plan Assessment & Plan (1) Anemia: Code(s): D64.9 - Anemia, unspecified Category: Medical Qualifiers: Anemia type: unspecified type Qualified Code(s): D64.9 - Anemia, unspecified Plan: CBC ordered, advised to go to the lab and obtain blood work. (2) Fibroids: Code(s): D21.9 - Benign neoplasm of connective and other soft tissue, unspecified Category: Medical Plan: Discussed ultrasound findings-enlarging fibroid 5.6 cm, and new fibroid noted 3.5 cm. IUD in lower uterine segment. Reviewed medical management, interventional procedures, and surgical options. She desires a future Mirena reinsertion. Due to the history of IUDs x2 being displaced due to the enlarging fibroid IUD placement may not be best option due to obstruction. Plan Recommended consult with the empty to discuss fibroid/AUB/Mirena IUD/all other options. The patient expressed understanding and agreement with the plan of care. All of her questions and concerns were addressed to the best of my ability. This note is constructed using voice recognition software. While every effort has been made to ensure accuracy, hull molder errors may have been included. Orders: Orders Complete Blood Count no Diff Today D64.9 - Anemia, unspecified, N93.9 - Abnormal uterine and vaginal bleeding, unspecified Coding Level of Care Code Tele Est Pt Level 3 (72575) Diagnoses Anemia, unspecified type D64.9 Anemia type: unspecified type Fibroids D21.9
== END 2025-03-10 15:27 | disposition home or self-care (01) ==
LOC: HO.HWS 13:53
PROVIDERS: PCP Internal Medicine; Visit Provider Advanced Practice Midwife
DX: D64.9 Anemia, unspecified (principal); D21.9 Benign neoplasm of connective and other soft tissue, unspecified
CPT/HCPCS: 99213

== ENCOUNTER 2025-03-15 07:46 | Outpatient (REF) | payer OTHER, SELFPAY ==
[2025-03-15 08:49] LABS: Hematocrit 26.9 % (37.0-47.0); Hemoglobin 7.5 g/dl (12.0-16.0); Mean Corpuscular HGB Conc 27.9 g/dl (31.0-35.0); Mean Corpuscular Hemoglobin 19.3 pg (27.0-33.0); Mean Corpuscular Volume 69.3 fL (80.0-98.0); NRBC Abs Auto 0.000 X10*3/uL (0.0-0.012); NRBC Pct Auto 0.0 /100WBC (0.0-0.2); Platelet Count 356 X10*3/uL (160-400); Red Blood Count 3.88 X10*6/uL (4.20-5.50); White Blood Count 11.3 X10*3/uL (4.8-10.8)
== END 2025-03-15 07:47 | disposition home or self-care (01) ==
LOC: HO.LAB 07:46
PROVIDERS: PCP Internal Medicine; Visit Provider Obstetrics & Gynecology
DX: T83.32XA Displacement of intrauterine contraceptive device, initial encounter (principal); Z12.31 Encounter for screening mammogram for malignant neoplasm of breast; N93.9 Abnormal uterine and vaginal bleeding, unspecified; D25.9 Leiomyoma of uterus, unspecified; Z98.51 Tubal ligation status
CPT/HCPCS: 36415; 58100; 58301; 81025; 85027; 99212

== ENCOUNTER 2025-03-15 09:55 | Outpatient (AMB) | payer OTHER, SELFPAY ==
--- NOTE | 2025-03-15 10:01 | A.OFFVIS_ITS ---
Intake Visit Reasons: IUD removal Medical Equipment Technician Required: Yes Medical Equipment Technician Language: Semiconductor Processor Services: Medical Equipment Technician Present (in person) Medical Equipment Technician Name: ANAND Urbano Information Interpreted: non-clinical & clinical Flow Specialist: Flow Specialist Present (ANAND Villa ) Accompanied by: Self / Same As Patient Allergies horse dander (HORSE DANDER) Allergy (Intermediate, Verified 03/15/25 10:02) Rash mold (MOLD) Allergy (Intermediate, Verified 03/15/25 10:02) rash pollen extracts (POLLEN) Allergy (Intermediate, Verified 03/15/25 10:02) Rash trazodone Adverse Reaction (Intermediate, Verified 03/15/25 10:02) dry mouth, sleepwalking GRASS Allergy (Intermediate, Uncoded 09/09/24 08:38) Rash HPI Comments Details: 02/23/2025 pelvic ultrasound showed the following: Uterus 13.2 x 7.3 x 12.0 cm. Endometrium not visualized. Multiple uterine fibroids are identified. Largest measures 4.3 x 5.6 cm. This has increased in size since previous study. New 3.5 x 3.1 cm fibroid noted. Remaining fibroids are unchanged. No significant free fluid. IUD in lower uterine segment near cervix. This is unchanged from prior CT. Right ovary is not visualized. Left ovary 2.5 x 1.1 x 1.8 cm. No focal abnormality. Today H&H 7.5/26.9 Last co testing in 08/18 was negative Last EMB was in 04/20 Last mammogram was BI-RADS 3 in 07/19 no mammogram done since then [facility] Medical History Abnormal uterine bleeding (AUB) IUD surveillance Irregular bleeding IUD (intrauterine device) in place Uncontrolled type 2 diabetes mellitus with hyperglycemia Cholelithiasis Asthma RASTA on CPAP Morbid obesity Exposure to COVID-19 virus Diabetes mellitus Dysuria RASTA on CPAP Liver lesion Iron deficiency anemia Diverticulitis Impaired glucose tolerance GERD (gastroesophageal reflux disease) Insomnia Paresthesia Morbid obesity with BMI of 50.0-59.9, adult Arthralgia Edema Depression Active asthma Super obese Eczema Migraines Iron deficiency anemia RASTA (obstructive sleep apnea) Fibromyalgia Surgical History History of tonsillectomy History of tubal ligation History of appendectomy Family History Father Diabetes Alzheimer disease Mother Diabetes Hypertension Maternal Grandmother Breast cancer Maternal Grandfather Prostate cancer Social History Household Members: Children Housing: Apartment Alcohol intake: never Patient Tobacco Use Status: Never used Tobacco e-Cigarette/Vaping Use: Never Used Second Hand Smoke Exposure: No Advance Directives Date on File: 11/27/22 service: No Current occupational status: unemployed Cognitive needs: No Hearing needs: No Vision needs: No Female Reproductive History Menstrual Age of Menarche: 10 Review of Systems Const All systems reviewed & are unremarkable except as noted in HPI and below Physical Exam General: Yes no CVA tenderness External Female Exam: normal external appearance and normal appearance of the urethra Speculum Exam - Vagina: normal appearance of the vagina, normal palpation, no lesions and no masses Speculum Exam - Cervix: normal appearance of the cervix, normal palpation, no lesions, no masses and nontender Bimanual exam- vagina & uterus: normal bimanual exam, normal palpation, uterine size normal, normal palpation, uterine shape normal, No Cervical tenderness present and non-tender Bimanual Exam- Adnexa, other: normal adnexae Back/Spine/Pelvis Back: no CVA tenderness Office Procedures Endometrial Biopsy Details: The patient was counseled regarding the indication and benefits of endometrial sampling to rule out endometrial pathology including not limited to endometrial hyperplasia or endometrial cancer and others; The alternatives (Either do nothing vs. hysteroscopy D&C) & the risks were discussed with the patient including but not limited: pain, uterine perforation, bleeding, infection, possible injury to bladder, bowel, ureter, possible need for blood transfusion with all its possible risks. The patient verbalized understanding all questions answered and signed consent. Urine test done in the office was negative The patient was placed into the dorsal lithotomy position; a speculum was inserted in the vagina. Using aseptic technique for the procedure, the cervix was cleansed with Betadine. The anterior lip of the cervix was grasped with a single tooth tenaculum. The uterus was sounded to 7 cm with a 4 mm Pipelle was used. Tissues samples were obtained and placed in formalin, in a patient labeled container and sent to the pathology department. At the end of the procedure, there was minimal bleeding noted The patient tolerated the procedure well and was discharged in good condition with the following instructions: Nothing in the vagina until the bleeding stops. No sex until the bleeding stops, to call if any of the following occurs: fever (>100.4), flu-like symptoms, abdominal pain, heavy bleeding, four smelling vaginal discharge. The patient was instructed to schedule a Follow up appointment in 2 weeks to discuss pathology results of the biopsy and treatment options. This note was generated with a voice recognition program. Some errors may have been overlooked during the review of this note. Sometimes these errors may affect the content or meaning of a given sentence. 12713-Azghqsonksq Biopsy IUD Insert/Removal Details Details: Counseling/Consent: After discussing with the patient the risks of the procedure including bleeding, infection, scar tissue formation, , possible injury to blood vessels or nerves, chronic arm pain, blood transfusion, and irregular unpredictable bleeding Alternative options were discussed with the patient including but not limited: Do nothing. The patient signed the consent and agreed with the plan; all questions answered. Urine test was done in the office and was negative Preop dx: Malpositioned IUD for removal Op: IUD removal Post op dx: same EBL= 10 cc Procedure: The patient was put in the dorsal lithotomy position a speculum was inserted in the vagina the IUD thread identified. Using a Cesilia clamp the thread was grasped and the IUD pulled out with no complications. The patient tolerated the procedure well and was advised to use a different method for contraception. Discharge instructions: Instructions were given to the pt to call if temp>100.4, abdominal pain heavy vaginal bleeding, n/v occur. The patient verbalized understanding and all questions answered. This note was generated with a voice recognition program. Some errors may have been overlooked during the review of this note. Sometimes these errors may affect the content or meaning of a given sentence. 10636-RFY Removal Procedure code (CPT) selection complete Assessment & Plan Assessment & Plan (1) Abnormal uterine bleeding (AUB): Comment: Anemia Code(s): N93.9 - Abnormal uterine and vaginal bleeding, unspecified Category: Medical Plan: Iron sulfate 325 mg p.o. t.i.d. Screening mammogram ordered, explained to the patient importance of having screening mammogram negative with progesterone treatment because of the small increase in the risk of breast cancer with progesterone long-term use. Since the patient had BI-RADS 3 in 07/19 with no follow-up mammogram, instructions given the patient to have her screening mammogram done as soon as possible. Co testing done GC/CT collected EMB done Provera 10 mg p.o. q.d. started Instructions given the patient to call or go to emergency room in case vaginal bleeding and to schedule a 2 week follow-up appointment (2) Malpositioned IUD: Code(s): T83.32XA - Displacement of intrauterine contraceptive device, initial encounter Category: Medical Plan: Discussed with the patient the results of the pelvic ultrasound was malpositioned IUD, recommended IUD removal, see procedure note (3) Uterine myoma: Code(s): D25.9 - Leiomyoma of uterus, unspecified Category: Medical Plan: Discussed with the patient the findings on pelvic ultrasound & the risk of myosarcoma; in addition reviewed with the patient that malignancy and pre malignancy cannot be ruled out without hysterectomy for pathological evaluation ; furthermore, explained to the patient the limitation of pelvic ultrasound and endometrial biopsy in the setting. Discussed with the patient the typical symptoms that are caused by myomas including but not limited to pelvic pain, pressure symptoms, abnormal uterine bleeding. In addition discussed with the patient options of treatment for myomas including: Serial ultrasounds periodically to follow-up on the size of the myoma while targeting the treatment against fibroids related symptoms ( control pills, Mirena IUD, progesterone treatment, GnRH agonist/antagonist, uterine artery embolization or endometrial ablation) versus surgical treatment including hysterectomy . All pros and cons, risks and benefits of all options were discussed with the patient. The patient decided to proceed with the definitive surgical management, hysterectomy. Discussed with the patient the different types of hysterectomies including, vaginal, laparoscopic assisted vaginal, robotic assisted laparoscopic,& abdominal with BSO. All pros, cons, r/b of each approach were discussed the patient including evidence that morbidity is less and recovery is shorter with minimally invasive approaches to hysterectomy. Discussed with the patient the lack of availability of the robot Genabilityinci robot and/or minimally invasive land development manager specialist at [facility]. Will refer to [facility] minimally invasive senior lead developer surgery. Instructed the patient to call our office back in case a referral appointment is not scheduled, missed or canceled so that we will assist on rescheduling another appointment, the patient verbalized understanding agreed with the plan. Orders: Orders MM tomosynthesis screening BI Today Z12.31 - Encounter for screening mammogram for malignant neoplasm of breast AMB Endometrial Biopsy Today N93.9 - Abnormal uterine and vaginal bleeding, unspecified Medications: New medroxyprogesterone (Provera) start Provera 1 tablet daily 10 mg PO DAILY 90 tabs 1RF 90 days Coding Level of Care Code Est Pt Level 3 (64995) Procedure Only Diagnoses Abnormal uterine bleeding (AUB) N93.9 Malpositioned IUD T83.32XA Uterine myoma D25.9 CPT Codes Endometrial Biopsy - CPT: 94755-Nniktnjdoyr Biopsy ([id number]) Details - CPT: 17579-DZT Removal ([id number])
== END 2025-03-15 10:38 | disposition home or self-care (01) ==
LOC: HO.HWS 09:56
PROVIDERS: PCP Internal Medicine; Visit Provider Obstetrics & Gynecology
DX: N93.9 Abnormal uterine and vaginal bleeding, unspecified (principal); T83.32XA Displacement of intrauterine contraceptive device, initial encounter; D25.9 Leiomyoma of uterus, unspecified; Z32.02 Encounter for pregnancy test, result negative; Z30.432 Encounter for removal of intrauterine contraceptive device
CPT/HCPCS: 58100; 58301; 99213

== ENCOUNTER 2025-03-15 11:24 | Outpatient (REF) | payer OTHER, SELFPAY ==
[2025-03-15 17:17] LABS: CT PCR NOT DETECTED (Not Detect.); NG PCR NOT DETECTED (Not Detect.)
== END 2025-03-15 11:25 | disposition home or self-care (01) ==
LOC: HO.LNP 11:24
PROVIDERS: Visit Provider Obstetrics & Gynecology
DX: Z11.3 Encounter for screening for infections with a predominantly sexual mode of transmission (principal); Z11.8 Encounter for screening for other infectious and parasitic diseases; Z11.51 Encounter for screening for human papillomavirus (HPV); N93.9 Abnormal uterine and vaginal bleeding, unspecified; D64.9 Anemia, unspecified
CPT/HCPCS: 87491; 87591; 87626; 88175; 88305

== ENCOUNTER 2025-04-12 07:25 | Outpatient (AMB) | payer OTHER, SELFPAY ==
--- NOTE | 2025-04-12 07:27 | A.OFFVIS_ITS ---
Vital Signs 04/12/25 07:31 Height 5 ft 3 in Weight 248 lb BMI 43.9 BP 114/66 Intake Visit Reasons: EMB results Key Carrier Required: Yes Key Carrier Language: Bean Snapper Services: Key Carrier Present (in person) Key Carrier Name: Clare MICHEL Information Interpreted: non-clinical & clinical Accompanied by: Self / Same As Patient Allergies horse dander (HORSE DANDER) Allergy (Intermediate, Verified 04/12/25 07:32) Rash mold (MOLD) Allergy (Intermediate, Verified 04/12/25 07:32) rash pollen extracts (POLLEN) Allergy (Intermediate, Verified 04/12/25 07:32) Rash trazodone Adverse Reaction (Intermediate, Verified 04/12/25 07:32) dry mouth, sleepwalking GRASS Allergy (Intermediate, Uncoded 04/12/25 07:32) Rash Is last menstrual period known: Yes Last menstrual period: 03/25/25 HPI Comments Details: The patient is presenting for follow-up to discuss the results of her abnormal uterine bleeding workup and options of treatment. The following workup was done.: H&H= 7.5/26.9 TSH, GC and chlamydia were negative. Endometrial biopsy pathology showed the following: Endometrium, biopsy: Benign inactive endometrium, and benign endocervical glandular mucosa with focal decidualized stroma consistent with progestin effect; no atypia or carcinoma Co testing was done was negative. Mammogram was BI-RADS 3 in 2021, the recommendation was to repeat in six- months, no mammo since then , next apt in 5 days Pelvic ultrasound showed the following: Uterus 13.2 x 7.3 x 12.0 cm. Endometrium not visualized. Multiple uterine fibroids are identified. Largest measures 4.3 x 5.6 cm. This has increased in size since previous study. New 3.5 x 3.1 cm fibroid noted. Remaining fibroids are unchanged. No significant free fluid. IUD in lower uterine segment near cervix. This is unchanged from prior CT. Right ovary is not visualized. Left ovary 2.5 x 1.1 x 1.8 cm. No focal abnormality. The patient was prescribed Provera 10 mg p.o. q.d. after IUD removal last visit since then bleeding has completely resolved and is taking iron sulfate 325 mg p.o. q.d.. In addition the patient was refer to [facility] minimally invasive Gynecological surgery, the patient did not receive a call yet for an appointment [facility] Medical History (Updated 04/12/25 @ 08:00 by Matt Thomas MD) Abnormal uterine bleeding (AUB) Irregular bleeding Uncontrolled type 2 diabetes mellitus with hyperglycemia Cholelithiasis Asthma RASTA on CPAP Morbid obesity Exposure to COVID-19 virus Diabetes mellitus Dysuria RASTA on CPAP Liver lesion Iron deficiency anemia Diverticulitis Impaired glucose tolerance GERD (gastroesophageal reflux disease) Insomnia Paresthesia Morbid obesity with BMI of 50.0-59.9, adult Arthralgia Edema Depression Active asthma Super obese Eczema Migraines Iron deficiency anemia RASTA (obstructive sleep apnea) Fibromyalgia Surgical History History of tonsillectomy History of tubal ligation History of appendectomy Family History Father Diabetes Alzheimer disease Mother Diabetes Hypertension Maternal Grandmother Breast cancer Maternal Grandfather Prostate cancer Social History Household Members: Children Housing: Apartment Alcohol intake: never Patient Tobacco Use Status: Never used Tobacco e-Cigarette/Vaping Use: Never Used Second Hand Smoke Exposure: No Advance Directives Date on File: 11/27/22 service: No Current occupational status: unemployed Cognitive needs: No Hearing needs: No Vision needs: No Female Reproductive History Menstrual Age of Menarche: 10 Date of last menstrual period: 03/25/25 control method: permanent sterilization Review of Systems Const All systems reviewed & are unremarkable except as noted in HPI and below Reports as per HPI and Reports no additional complaints GI Reports no additional complaints Reports no additional complaints Physical Exam Vital Signs: Last Vital Signs BP 114/66 04/12/25 07:31 BMI result Body Mass Index 43.9 Assessment & Plan Assessment & Plan (1) Abnormal uterine bleeding (AUB): Comment: Anemia Myoma Code(s): N93.9 - Abnormal uterine and vaginal bleeding, unspecified Category: Medical Plan: Recommended the patient to keep taking Provera 10 mg p.o. q.d., not to miss her next appointment for screening mammogram, iron sulfate 325 mg p.o. t.i.d., call or go to emergency room in case of vaginal bleeding. Instructed the patient to call our office back in case a referral appointment is not scheduled, missed or canceled so that we will assist on rescheduling another appointment, the patient verbalized understanding agreed with the plan. Coding Level of Care Code Est Pt Level 3 (56764) Diagnoses Abnormal uterine bleeding (AUB) N93.9
[2025-04-12 07:31] VITALS: BP 114/66; BMI 43.9
== END 2025-04-12 08:10 | disposition home or self-care (01) ==
LOC: HO.HWS 07:25
PROVIDERS: PCP Internal Medicine; Visit Provider Obstetrics & Gynecology
DX: N93.9 Abnormal uterine and vaginal bleeding, unspecified (principal)
CPT/HCPCS: 99213

== ENCOUNTER → 2025-04-12 07:25 | Outpatient (BNVA) | payer OTHER, SELFPAY | PROVIDERS: PCP Internal Medicine; Visit Provider Obstetrics & Gynecology | DX: Z71.2 Person consulting for explanation of examination or test findings (principal); N93.9 Abnormal uterine and vaginal bleeding, unspecified | CPT/HCPCS: 99212 ==

== ENCOUNTER 2025-04-13 16:18 | Outpatient (AMB) | payer OTHER, SELFPAY ==
[2025-04-13 16:22] VITALS: BP 118/74; PULSE 83; O2SAT 97; BMI 45.4
--- NOTE | 2025-04-13 16:22 | A.OFFPC_ITS ---
Vital Signs 04/13/25 16:22 Height 5 ft 3 in Weight 256 lb 8 oz BMI 45.4 BP 118/74 Blood Pressure Location Lt brachial Position Sitting Pulse 83 Pulse Source Pulse Oximeter Pulse Oximetry (%) 97 Oxygen Delivery Method Room Air Intake Visit Reasons: 4 mnth f/u + A1C needed Field Staff Required: No Accompanied by: Self / Same As Patient Allergies horse dander (HORSE DANDER) Allergy (Intermediate, Verified 04/13/25 16:48) Rash mold (MOLD) Allergy (Intermediate, Verified 04/13/25 16:48) rash pollen extracts (POLLEN) Allergy (Intermediate, Verified 04/13/25 16:48) Rash trazodone Adverse Reaction (Intermediate, Verified 04/13/25 16:48) dry mouth, sleepwalking GRASS Allergy (Intermediate, Uncoded 04/13/25 16:48) Rash Medication List - Last Reconciled 04/13/25 by Maribell Davalos MD albuterol sulfate 90 mcg/actuation (Ventolin HFA) 2 puffs inhalation Q6H PRN blood sugar diagnostic (FreeStyle Lite Strips) use daily As directed to check blood sugars for diabetes blood sugar diagnostic (ReliOn Prime Test Strips) As directed blood-glucose meter (FreeStyle Lite Meter kit) Use daily As directed to check blood glucose blood-glucose meter (ReliOn All-In-One Meter kit) As directed bupropion HCl XL 150 mg PO QAM 90 days cetirizine (Zyrtec) 10 mg PO DAILY 90 days cholecalciferol (vitamin D3) 25 mcg PO DAILY 90 days duloxetine 60 mg PO DAILY empagliflozin (Jardiance) 25 mg PO DAILY 90 days ferrous sulfate (iron) 325 mg PO BID fluticasone propionate 50 mcg/actuation (Flonase Allergy Relief) 1 spray intranasal DAILY lancets (FreeStyle Lancets) Use 1 lancet once a day lancets (FreeStyle Lancets) Use daily As directed to check blood sugar lancets As directed lisinopril 5 mg PO DAILY 90 days medroxyprogesterone (Provera) 10 mg PO DAILY 90 days meloxicam 15 mg PO DAILY metformin 1,000 mg PO BID 90 days semaglutide (Ozempic) 1 mg (0.75 mL) subcut QWEEK 4 weeks vitamin A acetate 10,000 units sublingual DAILY Tobacco use date assessed: 04/13/25 Dental Screening Dental Screen Date: 04/13/25 Did you have a dental visit in the last 12 months?: Yes Did you have a dental problem in the last 6 months where you did not have access to dental care?: No Was dental information given to patient?: Patient has dentist HPI HPI Comments History of Present Illness Details This is a 44-year-old female with mild recurrent major depression, diabetes mellitus type 2, hypertension and morbid obesity that comes today for follow-up on her conditions. Has a PHQ-9 of 9 and follows with counseling and psychiatry. A1c 6.2% today which is within goal. Blood pressure also within goal being less than 130/80. She is morbidly obese with a BMI of 45.4 and was advised to do diet and exercise to reach BMI goal less than 30. Has anemia follow by Hematology-Oncology. She also complains of dyspnea on exertion and has a murmur with occasional leg swelling and I will order echocardiogram. [facility] Medical History (Updated 04/13/25 @ 21:03 by Maribell Davalos MD) Abnormal uterine bleeding (AUB) Irregular bleeding Uncontrolled type 2 diabetes mellitus with hyperglycemia Cholelithiasis Asthma RASTA on CPAP Morbid obesity Exposure to COVID-19 virus Diabetes mellitus Dysuria RASTA on CPAP Liver lesion Iron deficiency anemia Diverticulitis Impaired glucose tolerance GERD (gastroesophageal reflux disease) Insomnia Paresthesia Morbid obesity with BMI of 50.0-59.9, adult Arthralgia Edema Depression Active asthma Super obese Eczema Migraines Iron deficiency anemia RASTA (obstructive sleep apnea) Fibromyalgia Surgical History History of tonsillectomy History of tubal ligation History of appendectomy Family History Father Diabetes Alzheimer disease Mother Diabetes Hypertension Maternal Grandmother Breast cancer Maternal Grandfather Prostate cancer Social History Household Members: Children Housing: Apartment Alcohol intake: never Patient Tobacco Use Status: Never used Tobacco e-Cigarette/Vaping Use: Never Used Second Hand Smoke Exposure: No Advance Directives Date on File: 11/27/22 service: No Current occupational status: unemployed Cognitive needs: No Hearing needs: No Vision needs: No Female Reproductive History Menstrual Age of Menarche: 10 Questionnaire PHQ-9 Over the last 2 weeks, how often have you been bothered by any of the following problems? 1. Little interest or pleasure in doing things: not at all 2. Feeling down, depressed, or hopeless: several days 3. Trouble falling or staying asleep, or sleeping too much: nearly every day 4. Feeling tired or having little energy: nearly every day 5. Poor appetite or overeating: not at all 6. Feeling bad about yourself - or that you are a failure or have let yourself or your family down: not at all 7. Trouble concentrating on things, such as reading the newspaper or watching television: several days 8. Moving or speaking so slowly that other people could have noticed. Or the opposite - being so fidgety or restless that you have been moving around a lot more than usual: several days 9. Thoughts that you would be better off or of hurting yourself in some way: not at all Total score: 9 Depression Screening Interpretation: Positive Depression Screening Follow-up: Existing condition, In treatment, Community Mental Health Worker F/U and Follow- up Visit Requested Depression Screening Done: Yes 23859 - PHQ-9 Billing: Yes Source: Developed by Drs. Dhaval Pacheco, Shireen Pulido, Thor Rodriguez and colleagues, with an educational shirlene from [employer]. Thrive Questionnaire Date Thrive assessed: 09/08/24 I am a: Patient What is your living situation today?: I have a steady place to live Within the past 12 months, did the food you bought not last and you didn't have the money to get more?: Never true Within the past 12 months, did you worry whether your food would run out before you got money to buy more?: Never true Do you have trouble paying for medicines?: No Do you have trouble getting transportation to medical appointments?: No Do you have trouble paying your heating and electricity bill?: No Do you have trouble taking care of your child, family member or friend?: Yes Do you have trouble with day-to-day activities such as bathing, preparing meals, shopping, managing finances, etc.?: No Are you currently unemployed and looking for a job?: Yes Are you interested in more education?: Yes Please select the resources that you would like help with: Job search/training Currently or been in a relationship where the following occur: I choose not to answer THRIVE Score: 0 AUDIT C Alcohol Use Questionnaire (AUDIT-C) 1. How often do you have a drink containing alcohol?: Never 3. How often do you have six or more drinks on one occasion?: Never Total Score: 0 Score Reviewed/Action Taken: No GENEVIEVE-7 AMB Questionnaire GENEVIEVE-7 Date GENEVIEVE - 7 assessed: 09/08/24 Feeling nervous, anxious, or on edge: 0 = Not at all Not being able to stop or control worryin = Not at all Worrying too much about different things: 1 = Several days Trouble relaxin = Several days Being so restless that it is hard to sit still: 1 = Several days Becoming easily annoyed or irritable: 1 = Several days Feeling afraid as if something awful might happen: 0 = Not at all Total GENEVIEVE-7 score (0-4 normal; 5-9 mild; 10-14 moderate; 15-21 severe): 4 Source: Developed by Drs. Dhaval Pacheco, Shireen Pulido, Thor Rodriguez and colleagues, with an educational shirlene from [employer]. GENEVIEVE-7 Assessment Billing GENEVIEVE-7 Assessment Tool: GENEVIEVE-7 Assessment 70212 Review of Systems Const All systems reviewed & are unremarkable except as noted in HPI and below Card Denies chest pain at rest, Denies chest pain with activity, Denies edema, Denies irregular heart rhythm, Denies claudication, Denies dyspnea, Denies dyspnea on e xertion, Denies orthopnea, Denies paroxysmal nocturnal dyspnea and Denies slow heart rate Resp Denies cough, Denies dyspnea and Denies dyspnea on exertion GI Denies abdominal pain, Denies change in bowel habits, Denies excessive flatus, Denies nausea and Denies vomiting Denies urinary incontinence, Denies urinary hesitancy and Denies urinary urgency Physical exam (Primary Care) Vital Signs: Last Vital Signs Pulse 83 04/13/25 16:22 BP 118/74 04/13/25 16:22 Pulse Ox 97 04/13/25 16:22 Oxygen Delivery Method Room Air 04/13/25 16:22 BMI result Body Mass Index 45.4 BMI Assessment/Plan discussion: High BMI High, discussed plan: lifestyle, weight reduction, dietary and physical activity Tobacco/Smoking Status: Tobacco use Status Tobacco use date assessed 04/13/25 04/13/25 16:23 Patient Tobacco Use Status Never used Tobacco 04/13/25 16:23 e-Cigarette/Vaping Use Never Used 04/13/25 16:23 PHQ-9: PHQ-9 Score PHQ-9: Total score 9 04/13/25 17:02 Depression Screening Interpretation: Positive Depression Screening Follow-up: Existing condition, In treatment, Community Mental Health Worker F/U and Follow- up Visit Requested Thrive Assessment: Date of Thrive Assessment Date Thrive assessed 09/08/24 04/13/25 16:23 Currently or been in a relationship where the following occur: I choose not to answer Resp Effort & Inspection: normal respiratory effort Auscultation: clear to auscultation bilaterally Cardio Jugular venous distension: no JVD Rate: regular rate Rhythm: regular rhythm Heart sounds: Murmur heart sound present Extrem General: Yes full ROM Results AMB Hemoglobin A1c AMB Hemoglobin A1c 6.2 % Last Edit by ANAND Galicia on 04/13/25 17 :13 Results Reviewed Results Reviewed: Laboratory Last Values Hgb A1c (Clinic) 6.2 % (4.0-6.0) H 04/13/25 17:02 Coding Level of Care Code Est Pt Level 4 (30865) Complex EM visit Add On G2211 Diagnoses Type 2 diabetes mellitus without complication, without long-term current use of insulin E11.9 Diabetes mellitus type: type 2 Mild recurrent major depression F33.0 Essential hypertension I10 Morbid obesity with BMI of 45.0-49.9, adult E66.01; Z68.42 Additional Codes GENEVIEVE-7 Assessment Billing - GENEVIEVE-7 Assessment Tool: GENEVIEVE-7 Assessment [id number] ([id number]) PHQ-9 - 69527 - PHQ-9 Billing: Yes ([id number]) Time Spent (min) 24 Assessment & Plan Assessment & Plan (1) Diabetes mellitus without complication, without long-term current use of insulin: Code(s): E11.9 - Type 2 diabetes mellitus without complications Category: Medical Qualifiers: Diabetes mellitus type: type 2 Qualified Code(s): E11.9 - Type 2 diabetes mellitus without complications (2) Mild recurrent major depression: Code(s): F33.0 - Major depressive disorder, recurrent, mild Category: Medical (3) Essential hypertension: Code(s): I10 - Essential (primary) hypertension Category: Medical (4) Morbid obesity with BMI of 45.0-49.9, adult: Code(s): E66.01 - Morbid (severe) obesity due to excess calories; Z68.42 - Body mass index [BMI] 45.0-49.9, adult Category: Medical Plan Continue current meds. Follow up with psychiatry. A1c goal is equal or less than 7%. BP goal is equal or less than 130/80. LDL goal is less than 70. Orders: Orders Lipid Panel Today E78.5 - Hyperlipidemia, unspecified Microalbumin, Random (w Creat) Today R80.9 - Proteinuria, unspecified Vitamin B12 and Folate Today E53.8 - Deficiency of other specified B group vitamins Comprehensive [place]. Panel Fast Today E11.9 - Type 2 diabetes mellitus without complications Vitamin D 25-OH Total Today E55.9 - Vitamin D deficiency, unspecified CA echo transthoracic complete Today R01.1 - Cardiac murmur, unspecified, R06.09 - Other forms of dyspnea AMB Hemoglobin A1c Today Z13.9 - Encounter for screening, unspecified Medications: Refilled semaglutide (Ozempic) 1 mg (0.75 mL) subcut QWEEK 3 mL 0RF 4 weeks E11.9 - Type 2 diabetes mellitus without complications
== END 2025-04-13 16:57 | disposition home or self-care (01) ==
LOC: HO.HMCH 16:19
PROVIDERS: PCP Internal Medicine; Visit Provider Internal Medicine
DX: E11.9 Type 2 diabetes mellitus without complications (principal); E66.01 Morbid (severe) obesity due to excess calories; Z68.42 Body mass index [BMI] 45.0-49.9, adult; F33.0 Major depressive disorder, recurrent, mild; I10 Essential (primary) hypertension

== ENCOUNTER → 2025-04-13 16:18 | Outpatient (BNVA) | payer OTHER, SELFPAY | PROVIDERS: PCP Internal Medicine; Visit Provider Internal Medicine | DX: E11.9 Type 2 diabetes mellitus without complications (principal); I10 Essential (primary) hypertension; E66.01 Morbid (severe) obesity due to excess calories; F33.0 Major depressive disorder, recurrent, mild; E78.5 Hyperlipidemia, unspecified; R80.9 Proteinuria, unspecified; E53.8 Deficiency of other specified B group vitamins; E55.9 Vitamin D deficiency, unspecified; R01.1 Cardiac murmur, unspecified; Z68.42 Body mass index [BMI] 45.0-49.9, adult | CPT/HCPCS: 83036; 96127; 99212 ==

== ENCOUNTER 2025-04-26 09:07 | Emergency (ER) | payer OTHER, SELFPAY ==
[2025-04-26] VITALS (7 sets, daily range): BP systolic 106–135; BP diastolic 36–65; PULSE 76–89; RESP 16–23; TEMP 36.7–36.8; O2SAT 98–99; BMI 46.2
--- NOTE | 2025-04-26 09:33 | ED.FEMALEGU ---
HPI - Female Genitourinary General Chief complaint: Vaginal Bleeding Stated complaint: vaginal blood clots Time Seen by Provider: 04/26/25 09:31 Source: patient Mode of arrival: ambulatory Limitations: no limitations History of Present Illness ED Provider: Michael Nelson PA-C HPI Narrative: 44-year-old female with a history of irregular vaginal bleeding s/p IUD now removed, multiple uterine fibroids with acute blood loss anemia requiring transfusion, history of asthma, RASTA, DM, depression, fibromyalgia, diverticulitis who presents to the ER today for evaluation of heavy vaginal bleeding for the last 3 days. She reports the bleeding is associated with passing of large clot, up to 4cm. She reports intense cramping as well. She reports her IUD was recently taken out due to the large fibroids. It was helping her with her bleeding which has worsened since removal. She reports some dizziness associated with some bleeding. No chest pain, shortness of breath. No vaginal discharge aside from blood. Denies chance of . Patient was seen by Dr. William Barr on April 12 in the office to discuss her abnormal uterine bleeding workup and options for treatment of her uterine fibroids. She has had an endometrial biopsy in the past which was benign. She had been prescribed and mg of Provera daily after her IUD was removed during the last visit. She was taking iron as well. She was referred to [facility] for minimally invasive gynecologic surgery. She heard from them last week and has an appointment on June 14. MD elicited complaint: vaginal bleeding Pertinent past history: other (History of large uterine fibroids) Onset (ago): day(s) (3) Location of symptoms: vaginal Severity: severe Female Urogenital Radiation: Non-Radiating Quality of pain: cramping Consistency: intermittent Vaginal discharge: none Vaginal bleeding: heavy, dark red and clots Exacerbating factors: none Relieving factors: none Associated symptoms: other (dizziness) Treatment prior to arrival: none Sexual activity: No Patient : No Date of Last Menstrual Period: 04/23/25 Related Data Home Medications ?Medication ?Instructions ?Recorded ?Confirmed duloxetine 60 mg capsule,delayed 60 mg PO DAILY 08/26/20 04/13/25 release blood-glucose meter (ReliOn 03/15/22 04/13/25 All-In-One Meter kit) lancets 26 gauge 03/15/22 04/13/25 Previous Rx's ?Medication ?Instructions ?Recorded lancets 28 gauge (FreeStyle #100 ea 07/15/21 Lancets) blood sugar diagnostic (ReliOn #100 ea 04/06/22 Prime Test Strips) vitamin A acetate 3,000 mcg 10,000 unit sublingual DAILY #90 07/04/22 (10,000 unit) sublingual tablet tabs cholecalciferol (vitamin D3) 25 25 mcg PO DAILY 90 days #90 caps 06/23/23 mcg (1,000 unit) capsule cetirizine 10 mg tablet (Zyrtec) 10 mg PO DAILY 90 days #90 tabs 09/21/23 fluticasone propionate 50 1 spray intranasal DAILY #9.9 mL 12/03/23 mcg/actuation nasal spray,suspension (Flonase Allergy Relief) blood sugar diagnostic (FreeStyle #100 ea 03/11/24 Lite Strips) blood-glucose meter (FreeStyle #1 ea 03/11/24 Lite Meter kit) lancets 28 gauge (FreeStyle #100 ea 03/11/24 Lancets) meloxicam 15 mg tablet 15 mg PO DAILY #30 tabs 11/07/24 lisinopril 5 mg tablet 5 mg PO DAILY 90 days #90 tabs 11/24/24 metformin 1,000 mg tablet 1,000 mg PO BID 90 days #180 tabs 11/24/24 bupropion HCl 150 mg 24 hr tablet, 150 mg PO QAM 90 days #90 tabs 12/04/24 extended release ferrous sulfate 325 mg (65 mg 325 mg PO BID #60 tabs 02/22/25 iron) tablet (iron) medroxyprogesterone 10 mg tablet 10 mg PO DAILY 90 days #90 tabs 03/15/25 (Provera) albuterol sulfate 90 mcg/actuation 2 puff inhalation Q6H PRN 03/17/25 aerosol inhaler (Ventolin HFA) shortness of breath or wheezing #8.5 grams empagliflozin 25 mg tablet 25 mg PO DAILY 90 days #90 tabs 03/25/25 (Jardiance) semaglutide 1 mg/dose (4 mg/3 mL) 1 mg (0.75 mL) subcut QWEEK 4 04/13/25 subcutaneous pen injector (Ozempic) weeks #3 mL medroxyprogesterone 5 mg tablet 15 mg (3 x 5 mg) PO DAILY #90 tabs 04/26/25 (Provera) Allergies Allergy/AdvReac Type Severity Reaction Status Date / Time horse dander (HORSE DANDER) Allergy Intermediate Rash Verified 04/26/25 09:19 mold (MOLD) Allergy Intermediate rash Verified 04/26/25 09:19 pollen extracts (POLLEN) Allergy Intermediate Rash Verified 04/26/25 09:19 trazodone AdvReac Intermediate dry mouth, Verified 04/26/25 09:19 sleepwalking GRASS Allergy Intermediate Rash Uncoded 04/13/25 16:48 Review of Systems Review of Systems: Yes all other systems are reviewed and are negative [facility] Past Medical History Medical History (Updated 04/26/25 @ 10:42 by NERI Jiang) Abnormal uterine bleeding (AUB) Irregular bleeding Uncontrolled type 2 diabetes mellitus with hyperglycemia Cholelithiasis Asthma RASTA on CPAP Morbid obesity Exposure to COVID-19 virus Diabetes mellitus Dysuria RASTA on CPAP Liver lesion Iron deficiency anemia Diverticulitis Impaired glucose tolerance GERD (gastroesophageal reflux disease) Insomnia Paresthesia Morbid obesity with BMI of 50.0-59.9, adult Arthralgia Edema Depression Active asthma Super obese Eczema Migraines Iron deficiency anemia RASTA (obstructive sleep apnea) Fibromyalgia Surgical History History of tonsillectomy History of tubal ligation History of appendectomy Date of Last Menstrual Period: 04/23/25 Family History Family History Father Diabetes Alzheimer disease Mother Diabetes Hypertension Maternal Grandmother Breast cancer Maternal Grandfather Prostate cancer Social History Social History Household Members: Children Housing: Apartment Alcohol intake: never Patient Tobacco Use Status: Never used Tobacco Smoked in Last 30 Days: No e-Cigarette/Vaping Use: Never Used Second Hand Smoke Exposure: No Substance Use Type: Marijuana Substance Use Frequency: Occasionally Advance Directives: Yes Advance Directives on File: Yes Advance Directives Date on File: 11/27/22 Patient : No service: No Current occupational status: unemployed Cognitive needs: No Hearing needs: No Vision needs: No Physical Exam Exam: Exam: Appearance: Alert. Oriented X3. No acute distress. Head: normocephalic, atraumatic. Eyes: normal inspection, pale conjunctiva ENT: Pharynx normal. No tonsillar swelling or exudate. Neck: Normal inspection. Neck supple. CVS: Normal heart rate and rhythm. Pulses normal. Respiratory: No respiratory distress. Breath sounds normal. Abdomen: Obese, Soft with mild tenderness of suprapubic area, unable to palpate any masses. +BS x4. pelvic deferred Skin: Skin warm and dry. skin color w/ pallor. Normal skin turgor. No rashes. Extremities: No lower extremity edema. No joint swelling. Neuro/psych: Oriented X 3. grossly normal, nonfocal. Normal speech and cognition. Vital Signs: Vital Signs: Last Vital Signs Temp 98.2 F 04/26/25 16:06 Pulse 85 04/26/25 16:06 Resp 23 H 04/26/25 16:06 BP 112/36 L 04/26/25 16:06 Pulse Ox 98 04/26/25 16:06 O2 Del Method Room Air 04/26/25 16:06 BMI result Body Mass Index 46.2 Medical Decision Making Medical Decision Making MDM Narrative: 44-year-old female with a history of chronic anemia due to heavy vaginal bleeding and uterine fibroids, iron deficiency anemia requiring transfusion in September who presents to the ER for evaluation of heavy vaginal bleeding for the last 3 days. It associated with dizziness. She recently saw Dr. Thomas in the office and has plans to follow-up at [facility] for surgical options, but this is not until May. Lab work today shows stable H&H. She is already on Prozac 10 mg daily. Case discussed with Dr. Thomas who came to evaluate the patient. No over vaginal bleeding on exam today. He is recommending 1 unit of PRBC transfusion for symptomatic anemia, increasing the Provera to 15 mg per day. Patient is agreeable with plan. Blood consent obtained. Patient tolerated blood transfusion well. No need to repeat H&H. She will follow up with OBGYN and [facility] for surgical treatment options. Return precautions were discussed. Stable for discharge home Differential Diagnosis Differential Diagnoses: The differential diagnosis associated with the presentation includes Acute on chronic blood-loss anemia, iron deficiency anemia, uterine fibroids, dysfunctional uterine bleeding Admission/Observation Consideration of admission/observation: Escalation of care including admission/observation considered Consult Healthcare Provider Management of the patient was discussed with: Bi Manager Dr. Thomas Lab Data MDM Lab Attestation statement: I reviewed the patient's lab results. Chronic, stable, microcytic anemia, H&H is the same as it was last month. Platelets are normal. Mild hyperglycemia without anion gap 04/26/25 09:37 04/26/25 09:37 Labs: Lab Results 04/26/25 04/26/25 04/26/25 Range/Units 09:37 09:41 11:11 WBC 9.5 (4.8-10.8) X10*3/uL RBC 3.62 L (4.20-5.50) X10*6/uL Hgb 7.4 L (12.0-16.0) g/dl Hct 26.9 L (37.0-47.0) % MCV 74.3 L (80.0-98.0) fL MCH 20.4 L (27.0-33.0) pg MCHC 27.5 L (31.0-35.0) g/dl RDW 23.9 H (11.0-16.0) % Plt Count 317 (160-400) X10*3/uL MPV 9.3 L (9.4-12.3) fL Immature Gran % (Auto) 0.5 H (0.0-0.4) % Neut % (Auto) 76.0 H (45-73) % Lymph % (Auto) 15.0 L (20-40) % Glenn % (Auto) 6.8 (2-11) % Eos % (Auto) 1.4 (0-4) % Baso % (Auto) 0.3 (0-2) % Lymph # (Auto) 1.4 (1.2-4.9) X10*3/uL Glenn # (Auto) 0.7 (0.1-1.2) X10*3/uL Eos # (Auto) 0.1 (0.0-0.4) X10*3/uL Baso # (Auto) 0.0 (0.0-0.2) X10*3/uL Abs Immat Gran (auto) 0.05 H (0.00-0.03) X10*3/uL Absolute Neuts (auto) 7.2 (2.0-8.3) x10*3/uL Absolute Nucleated RBC 0.000 (0.0-0.012) X10*3/uL Nucleated RBC % (auto) 0.0 (0.0-0.2) /100WBC Sodium 141 (135-145) mmol/L Potassium 3.8 (3.3-5.1) mmol/L Chloride 108 (96-108) mmol/L Carbon Dioxide 27 (22-29) mmol/L Anion Gap 10 L (12-20) BUN 9 (9-16) mg/dL Creatinine 0.57 (0.5-1.4) mg/dL Estim Creat Clear Calc 155.0 Estimated GFR > 60 Random Glucose 216 H (60-115) mg/dL Calcium 8.7 (8.4-10.2) mg/dL Total Bilirubin 0.1 (0.0-1.0) mg/dL AST 16 (5-31) U/L ALT 6 (0-31) U/L Alkaline Phosphatase 91 (39-117) U/L Total Protein 6.2 L (6.5-8.0) g/dL Albumin 3.7 (3.5-5.0) g/dL Beta HCG, Quant < 2 mIU/mL Urine Color Yellow Urine Appearance Clear Urine pH 5.5 (5.0-9.0) Ur Specific Gilchrist >= 1.030 H (1.005-1.025) Urine Protein Trace (Neg-Trace) mg/dL Urine Glucose (UA) 500 H (Negative) mg/dL Urine Ketones Trace (Negative) mg/dL Urine Blood Large (3+) H (Negative) Urine Nitrite Negative (Negative) Ur Leukocyte Esterase Trace H (Negative) Urine RBC >20 H (0-2) /HPF Urine WBC 6-10 H (0-5) /HPF Ur Squamous Epith Cells 0-2 (0-2) /HPF Urine Bacteria None Seen (None Seen) Hyaline Casts 0-2 (0-2) /LPF Blood Type O Positive Antibody Screen POSITIVE Antibody Identification Anti-K Antigen Identification K Antigen - NEGATIVE Crossmatch See Detail Crossmatch (AHG) See Detail External Record Review External record reviewed: Office record, Outpatient record and Prior outpatient labs Tests considered The following testing was considered but not selected: Pelvic ultrasound was considered, 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 Time includes review of lab data, radiology results, discussion with consultants, and monitoring for potential decompensation. Intervention performed as documented. Discharge Plan Discharge Clinical Impression: Dysfunctional uterine bleeding, Chronic blood loss anemia Uterine fibroid Qualifiers: Uterine leiomyoma location: unspecified location Qualified Code(s): D25.9 - Leiomyoma of uterus, unspecified Patient Disposition: Home, Self-Care Instructions: Uterine Fibroids (ED), Blood Transfusion (DC) Additional Instructions: You were transfuse 1 unit of packed red blood cells today for your ongoing anemia. Dr. Thomas he would like to increase your Provera to 15 mg per day. Take three 5 mg tablets daily Follow up with [facility] at [facility] If you develop new or worsening symptoms call 911 or come back to the ER for further evaluation. Prescriptions: New medroxyprogesterone [Provera] 5 mg tablet 15 mg PO DAILY Qty: 90 2RF No Action (DME) lancets [FreeStyle Lancets] 28 gauge misc See Rx Instructions .Route Qty: 100 3RF Rx Instructions: Use 1 lancet once a day (DME) ReliOn Prime Test Strips Strip See Rx Instructions .Route Qty: 100 1RF Rx Instructions: As directed vitamin A acetate 10,000 unit tablet, sublingual 10,000 unit sublingual DAILY Qty: 90 1RF cholecalciferol (vitamin D3) 25 mcg (1,000 unit) capsule 25 mcg PO DAILY 90 Days Qty: 90 1RF cetirizine [Zyrtec] 10 mg tablet 10 mg PO DAILY 90 Days Qty: 90 1RF (DME) FreeStyle Lite Strips Strip See Rx Instructions .ROUTE .MEDSUPPLY Qty: 100 3RF Rx Instructions: use daily As directed to check blood sugars for diabetes (DME) lancets [FreeStyle Lancets] 28 gauge misc See Rx Instructions .ROUTE .MEDSUPPLY Qty: 100 3RF Rx Instructions: Use daily As directed to check blood sugar (DME) blood-glucose meter [FreeStyle Lite Meter] Kit See Rx Instructions .ROUTE .MEDSUPPLY Qty: 1 0RF Rx Instructions: Use daily As directed to check blood glucose meloxicam 15 mg tablet 15 mg PO DAILY Qty: 30 1RF lisinopril 5 mg tablet 5 mg PO DAILY 90 Days Qty: 90 1RF metformin 1,000 mg tablet 1,000 mg PO BID 90 Days Qty: 180 1RF bupropion HCl 150 mg tablet extended release 24 hr 150 mg PO QAM 90 Days Qty: 90 1RF albuterol sulfate [Ventolin HFA] 90 mcg/actuation HFA aerosol inhaler 2 puff inhalation Q6H PRN (Reason: shortness of breath or wheezing) Qty: 8.5 2RF Jardiance 25 mg tablet 25 mg PO DAILY 90 Days Qty: 90 2RF ferrous sulfate [iron] 325 mg (65 mg iron) Tablet 325 mg PO BID Qty: 60 1RF duloxetine 60 mg capsule,delayed release(DR/EC) 60 mg PO DAILY fluticasone propionate [Flonase Allergy Relief] 50 mcg/actuation spray,suspension 1 spray intranasal DAILY Qty: 9.9 1RF Rx Instructions: administer into each nostril (DME) blood-glucose meter [ReliOn All-In-One Meter] Kit See Rx Instructions .Route Rx Instructions: As directed (DME) [facility] See Rx Instructions .Route Rx Instructions: As directed Ozempic 1 mg/dose (4 mg/3 mL) pen injector 1 mg subcut QWEEK 28 Days Qty: 3 0RF medroxyprogesterone [Provera] 10 mg tablet 10 mg PO DAILY 90 Days Qty: 90 1RF Rx Instructions: start Provera 1 tablet daily Referrals: [facility] [Provider Group] Maribell West MD [Primary Care Provider, Internal Medicine] Interventions: ED Discharge Assessment Last Done: 04/26/25 16:06 Discharge Date/Time: 04/26/25 16:08 Print Language: Indonesian
[2025-04-26 09:45] LABS: MANUAL DIFF FLAG NO
[2025-04-26 09:49] LABS: Hematocrit 26.9 % (37.0-47.0); Hemoglobin 7.4 g/dl (12.0-16.0); Imm Gran Abs Auto 0.05 X10*3/uL (0.00-0.03); Imm Gran Pct Auto 0.5 % (0.0-0.4); Lymphocytes Absolute Auto 1.4 X10*3/uL (1.2-4.9); Mean Corpuscular HGB Conc 27.5 g/dl (31.0-35.0); Mean Corpuscular Hemoglobin 20.4 pg (27.0-33.0); Mean Corpuscular Volume 74.3 fL (80.0-98.0); NRBC Abs Auto 0.000 X10*3/uL (0.0-0.012); NRBC Pct Auto 0.0 /100WBC (0.0-0.2); Platelet Count 317 X10*3/uL (160-400); Red Blood Count 3.62 X10*6/uL (4.20-5.50); White Blood Count 9.5 X10*3/uL (4.8-10.8)
[2025-04-26 10:22] LABS: Alanine Aminotransferase 6 U/L (0-31); Albumin Level 3.7 g/dL (3.5-5.0); Alkaline Phosphatase 91 U/L (39-117); Anion Gap 10 (12-20); Aspartate Amino Transferase 16 U/L (5-31); Blood Urea Nitrogen 9 mg/dL (9-16); Calcium 8.7 mg/dL (8.4-10.2); Carbon Dioxide 27 mmol/L (22-29); Chloride 108 mmol/L (96-108); Creatinine Clr Calc Pharmacy 155.0; Estimated Glomerular Filt Rate > 60; Potassium 3.8 mmol/L (3.3-5.1); Sodium 141 mmol/L (135-145); Total Protein 6.2 g/dL (6.5-8.0)
--- NOTE | 2025-04-26 10:24 | P.CONOB_ITS ---
STEREOPTICIAN - CN: HPI Data of Consult Consult date: 04/26/25 Primary Care Provider: Maribell Davalos MD Consult Narrative Narrative: I was consulted on Miryam Hutton who is a 44 year old female presenting to the emergency room with 3 day history of heavy vaginal bleeding passage of blood clots The following workup was recent done in the office: 03/15/2025 H&H= 7.5/26.9 TSH, GC and chlamydia were negative. Endometrial biopsy pathology showed the following: Endometrium, biopsy: Benign inactive endometrium, and benign endocervical glandular mucosa with focal decidualized stroma consistent with progestin effect; no atypia or carcinoma Co testing was done was negative. Mammogram was BI-RADS 3 in 2021, the recommendation was to repeat in six- months, no mammo since then , next apt in 5 days Pelvic ultrasound showed the following: Uterus 13.2 x 7.3 x 12.0 cm. Endometrium not visualized. Multiple uterine fibroids are identified. Largest measures 4.3 x 5.6 cm. This has increased in size since previous study. New 3.5 x 3.1 cm fibroid noted. Remaining fibroids are unchanged. No significant free fluid. IUD in lower uterine segment near cervix. This is unchanged from prior CT. Right ovary is not visualized. Left ovary 2.5 x 1.1 x 1.8 cm. No focal abnormality. The patient was prescribed Provera 10 mg p.o. q.d. after IUD removal is taking iron sulfate 325 mg p.o. q.d.. In addition the patient was referred to [facility] minimally invasive Gynecological surgery, and has an appointment scheduled on 06/14/2025. H&H today in the emergency room was 7.4/26.9 similar to H&H on 03/15 HCG less than 2 cc:: CC: [facility] Past Medical History Medical History (Updated 04/27/25 @ 00:00 by Background Daemon) Abnormal uterine bleeding (AUB) Irregular bleeding Uncontrolled type 2 diabetes mellitus with hyperglycemia Cholelithiasis Asthma RASTA on CPAP Morbid obesity Exposure to COVID-19 virus Diabetes mellitus Dysuria RASTA on CPAP Liver lesion Iron deficiency anemia Diverticulitis Impaired glucose tolerance GERD (gastroesophageal reflux disease) Insomnia Paresthesia Morbid obesity with BMI of 50.0-59.9, adult Arthralgia Edema Depression Active asthma Super obese Eczema Migraines Iron deficiency anemia RASTA (obstructive sleep apnea) Fibromyalgia Family History Family History Father Diabetes Alzheimer disease Mother Diabetes Hypertension Maternal Grandmother Breast cancer Maternal Grandfather Prostate cancer Surgical History Surgical History History of tonsillectomy History of tubal ligation History of appendectomy Social History Social History Household Members: Children Housing: Apartment Alcohol intake: never Patient Tobacco Use Status: Never used Tobacco Smoked in Last 30 Days: No e-Cigarette/Vaping Use: Never Used Second Hand Smoke Exposure: No Substance Use Type: Marijuana Substance Use Frequency: Occasionally Advance Directives: Yes Advance Directives on File: Yes Advance Directives Date on File: 11/27/22 Patient : No service: No Current occupational status: unemployed Cognitive needs: No Hearing needs: No Vision needs: No Meds Allergies Allergy/AdvReac Type Severity Reaction Status Date / Time horse dander (HORSE DANDER) Allergy Intermediate Rash Verified 04/26/25 09:19 mold (MOLD) Allergy Intermediate rash Verified 04/26/25 09:19 pollen extracts (POLLEN) Allergy Intermediate Rash Verified 04/26/25 09:19 trazodone AdvReac Intermediate dry mouth, Verified 04/26/25 09:19 sleepwalking GRASS Allergy Intermediate Rash Uncoded 04/13/25 16:48 Home Medications ?Medication ?Instructions ?Recorded ?Confirmed ?Last Taken ?Type duloxetine 60 mg capsule,delayed 60 mg PO DAILY 04/13/25 Unknown History release blood-glucose meter (ReliOn 03/15/22 04/13/25 Unknown History All-In-One Meter kit) lancets 26 gauge 03/15/22 04/13/25 Unknown H istory STEREOPTICIAN Physical Exam Vitals Vital signs: Temp Pulse Resp BP Pulse Ox O2 Del Method 98.0 F 89 18 135/65 98 Room Air 04/26/25 09:19 04/26/25 09:19 04/26/25 09:19 04/26/25 09:19 04/26/25 09:19 04/26/25 09:19 BMI result Body Mass Index 46.2 Female Genitalia (Pelvic) Vulva: No lesions Vagina: Nontender Cervix: Grossly normal Uterus: Enlarged Adnexa/Parametria: Adnexal Tenderness: None, Adnexal Mass: None, Parametrial Tenderness: None and Parametrial Mass: None Additional Comments: Minimal blood per vagina, no evidence of active vaginal bleeding STEREOPTICIAN - Results Labs 04/26/25 09:37 04/26/25 09:37 Labs: Short CBC 04/26/25 Range/Units 09:37 WBC 9.5 (4.8-10.8) X10*3/uL Hgb 7.4 L (12.0-16.0) g/dl Hct 26.9 L (37.0-47.0) % Plt Count 317 (160-400) X10*3/uL BMP 04/26/25 09:37 Sodium 141 Potassium 3.8 Chloride 108 Carbon Dioxide 27 BUN 9 Creatinine 0.57 Calcium 8.7 Liver Function 04/26/25 Range/Units 09:37 Total Bilirubin 0.1 (0.0-1.0) mg/dL AST 16 (5-31) U/L ALT 6 (0-31) U/L Alkaline Phosphatase 91 (39-117) U/L Albumin 3.7 (3.5-5.0) g/dL Assessment and Plan (1) Abnormal uterine bleeding (AUB): Status: Acute Recommend: Transfuse with 1 unit of packed RBCs Increase medroxyprogesterone acetate to 15 mg p.o. q.d., prescription to be given by NERI Priest Continue on Iron sulfate 325 mg p.o. t.i.d. Instructions to be given to patient to call or come back to emergency room in case of persistence of vaginal bleeding Communicated the plan with NERI Priest
--- NOTE | 2025-04-26 10:34 | PC.NURSE ---
Addendum entered by Kanwal Dent RN 04/26/25 10:35: Patient is a 44 yo female who presents with abnormal uterine bleeding with assoc abdominal cramping. Patient was recently worked up by [employer]PER[employer]PER for the same. IUD removed and depo PO initiated. Alert and oriented. Lungs clear bilat. Respirations even and non-labored. Abdomen large, soft, non-tender with positive bowel sounds. c/o abdominal cramping. Positive pedal pulses noted. Original Note: Medical History Abnormal uterine bleeding (AUB) Irregular bleeding Uncontrolled type 2 diabetes mellitus with hyperglycemia Cholelithiasis Asthma RASTA on CPAP Morbid obesity Exposure to COVID-19 virus Diabetes mellitus Dysuria RASTA on CPAP Liver lesion Iron deficiency anemia Diverticulitis Impaired glucose tolerance GERD (gastroesophageal reflux disease) Insomnia Paresthesia Morbid obesity with BMI of 50.0-59.9, adult Arthralgia Edema Depression Active asthma Super obese Eczema Migraines Iron deficiency anemia RASTA (obstructive sleep apnea) Fibromyalgia
--- NOTE | 2025-04-26 11:15 | PC.NURSE ---
DERIVATIVES TRADER provider down to evaluate and perform a pelvic. Decision made to transfuse patient
[2025-04-26 11:19] LABS: Appearance Urine Clear; Glucose Urine UA 500 mg/dL (Negative); PH 5.5 (5.0-9.0); Specific Gravity - Urine >= 1.030 (1.005-1.025); UMIC TRIGGER UA YES
== END 2025-04-26 16:08 | disposition home or self-care (01) ==
PROVIDERS: Physician Assistant; Emergency Provider Emergency Medicine; PCP Internal Medicine
DX: N93.9 Abnormal uterine and vaginal bleeding, unspecified (principal); N93.8 Other specified abnormal uterine and vaginal bleeding; D64.9 Anemia, unspecified; D25.9 Leiomyoma of uterus, unspecified; E66.9 Obesity, unspecified; Z68.42 Body mass index [BMI] 45.0-49.9, adult; G47.33 Obstructive sleep apnea (adult) (pediatric); E11.9 Type 2 diabetes mellitus without complications; Z79.899 Other long term (current) drug therapy
CPT/HCPCS: 36415; 36430; 80053; 81001; 84702; 85025; 86850; 86870; 86900; 86901; 86902; 86905; 86920; 86922; 99284; 99285; P9016

== ENCOUNTER → 2025-04-26 10:02 | Outpatient (BNV) | payer OTHER, SELFPAY | PROVIDERS: Emergency Provider Emergency Medicine; PCP Internal Medicine; Visit Provider Obstetrics & Gynecology | DX: N93.9 Abnormal uterine and vaginal bleeding, unspecified (principal) | CPT/HCPCS: 99283 ==

== ENCOUNTER → 2025-05-28 09:39 | Outpatient (REF) | payer OTHER, SELFPAY ==
--- NOTE | 2025-05-28 09:41 | CA_ITS ---
Transthoracic Echocardiogram Patient (Last, First, Middle): Miryam Salazar, Gender: F Date of : 1980 Age: 44 Procedure Date: 05/28/2025 Procedure Type: Transthoracic Echocardiogram Location: OP Height: 160.02 cm Weight: 112.49 kg BSA: 2.12 m2 Heart Rate: bpm BP: 118 / 64 mmHg Director Stage: TO Referring MD: Maribell Davalos MD Symptoms: R01.1 - Cardiac murmur, unspecified Study Quality: Fair/Contrast ECG Rhythm: Sinus Conclusions: - The left ventricular systolic function is normal. The calculated ejection fraction is 56% by biplane method. - No obvious valvular pathology seen on this study. Findings Procedure Information Contrast agent, definity, is being given per protocol without apparent complications. Left Ventricle Normal left ventricular cavity size. There is normal left ventricular wall thickness. The left ventricular systolic function is normal. The calculated ejection fraction is 56% by biplane method. There is no evidence of regional wall motion abnormalities. Diastolic function is normal for age. Right Ventricle Normal right ventricular cavity size and systolic function. Atria Both atria are normal in size. Aortic Valve There is a normal trileaflet aortic valve. There is no aortic valve stenosis. There is no aortic valve regurgitation. Mitral Valve The mitral valve appears normal. There is no mitral valve regurgitation. There is no mitral valve stenosis. Pulmonic Valve The pulmonic valve is likely normal. Tricuspid Valve Normal tricuspid valve structure. There is trace tricuspid valve regurgitation. There is no evidence of pulmonary hypertension. Great Vessels The asc aorta is normal in size. Venous The inferior vena cava is normal in size and collapses greater than 50% with inspiration. Pericardium/Pleural There is no evidence of pericardial effusion. Prior Study Comparison No prior study available for comparison. Recommendations, Care & Conclusions No obvious valvular pathology seen on this study. Measurements 2D Linear Measurements IVSd: 0.87 0.6-0.9/0.6-1.0 cm LVIDd: 4.91 3.9-5.3/4.2-5.9 cm LVIDd Index: 2.32 2.4-3.2/2.2-3.1 cm/m2 LVIDs: 3.03 2.0-3.6 cm LVPWd: 0.61 0.7-1.1 cm LA Diam: 3.60 2.7-3.8/3.0-4.0 cm LAIDs Index: 1.70 1.5-2.3 cm/m2 LV Mass: 147.74 67-162/88-224 g LV Mass Index: 69.69 43-95/49-115 g/m2 LVOT Diam: 2.00 3.0+(-)1.3 cm 2D Systolic Function EF 4C: 55.40 >55% EF 2C: 56.20 >55% EF BiP: 55.90 >55% Mitral Valve MV Pk E: 0.72 MV PK A: 0.47 MV Decel Time: 136.00 E/A: 1.50 E'Lateral: 12.10 E'Medial: 8.59 E/E' Med: 8.40 E/E' Lat: 6.00 PHT: 40.00 MVA PHT: 5.50 Decel [place]: 5.34 Aortic Valve AoV Pk Ovidio: 1.64 AoV Mn Ovidio: 1.07 AoV VTI: 0.29 AoV Pk Grad: 11.00 Aov Mn Grad: 5.00 ARIES Cont.VTI: 2.31 LVOT LVOT Pk Ovidio: 1.17 LVOT Mn Ovidio: 0.71 LVOT VTI: 0.21 LVOT Pk Grad: 5.00 LVOT Mn Grad: 2.00 LVOT Diam: 2.00 LVOT Area: 3.14 Diastolic Function MV Pk E: 0.72 MV Pk A: 0.47 E/A: 1.50 E'Medial: 8.59 E/E' Med: 8.40 E' Laterial: 12.10 E/E' Lat: 6.00 Right Ventricle TAPSE (mm): 28.20 TVS' Ovidio: 15.20 Tricuspid Valve TR Pk Ovidio: 2.16 TR Pk Grad: 19.00 RA Press: 8.00 RVSP: 27.00 Great Vessels Aorta Sinus of Valsalva: 2.72 2.0-3.5 cm Ao Asc: 2.70 2.1-3.4 cm Updated in Other Vendor System with Status of Final Carrillo Dorado MD electronically signed on 05/29/2025 12:11:26 PM with status of Final
== END ==
LOC: HO.CARD 09:39
PROVIDERS: PCP Internal Medicine; Visit Provider Internal Medicine
DX: R06.09 Other forms of dyspnea (principal); R01.1 Cardiac murmur, unspecified
CPT/HCPCS: 93306; Q9957

== ENCOUNTER → 2025-05-28 09:41 | Outpatient (BNV) | payer OTHER, SELFPAY | PROVIDERS: PCP Internal Medicine; Visit Provider Internal Medicine | DX: R01.1 Cardiac murmur, unspecified (principal) | CPT/HCPCS: 93306 ==